=== PATIENT | male | born 1955 | race Caucasian/White ===

== ENCOUNTER 2020-03-09 20:38 | Inpatient (IN) | payer MEDICAID ==
[~2020-03-09] VITALS: Ht 175.3 cm; Wt 72.7 kg
[~2020-03-09 20:38] MED LIST: HYDR-4353 PO; HYDR-4383 PO
[2020-03-09 21:06] LABS: BASOPHILS # (AUTO) 0.2 X10'3 (0-0.2); BASOPHILS % (AUTO) 1.5 % (0-1); EOSINOPHILS # (AUTO) 0.2 X10'3 (0-0.9); EOSINOPHILS % (AUTO) 1.7 % (0-6); HEMOGLOBIN 14.9 g/dl (14.0-17.9); LYMPHOCYTES # (AUTO) 3.3 X10'3 (1.1-4.8); LYMPHOCYTES % (AUTO) 31.8 % (21-51); MEAN CORPUSCULAR HEMOGLOBIN 31.1 PG (27.0-31.0); MEAN CORPUSCULAR HGB CONC 33.1 g/dL (33.0-36.5); MEAN CORPUSCULAR VOLUME 93.8 FL (78-98); MEAN PLATELET VOLUME 8.1 FL (7.4-10.4); MONOCYTES # (AUTO) 0.9 X10'3 (0-0.9); NEUTROPHILS # (AUTO) 5.9 X10'3 (1.8-7.7); PLATELET COUNT 214 X10'3 (140-440); RED BLOOD COUNT 4.79 X10'6 (4.70-6.10); RED CELL DISTRIBUTION WIDTH 13.8 % (11.5-14.5); WHITE BLOOD COUNT 10.5 X10'3 (4.5-11.0)
[2020-03-09 21:25] LABS: ALANINE AMINOTRANSFERASE 34 U/L (12-78); ALBUMIN 3.2 G/DL (3.4-5.0); ALBUMIN/GLOBULIN RATIO 0.9 (1.1-1.5); ALKALINE PHOSPHATASE 121 IU/L (46-116); ANION GAP 8 (8-16); ASPARTATE AMINO TRANSFERASE 30 U/L (10-37); BILIRUBIN,TOTAL 0.9 MG/DL (0.1-1.0); BLOOD UREA NITROGEN 17 MG/DL (7-18); BUN/CREATININE RATIO 12.9 (5.4-32.0); CALCIUM 8.5 MG/DL (8.5-10.1); CHLORIDE 101 MMOL/L (99-107); CREATININE 1.32 MG/DL (0.60-1.10); GLUCOSE 102 MG/DL (70-104); POTASSIUM 4.5 MMOL/L (3.5-5.1); SODIUM 136 MMOL/L (135-145); TOTAL CARBON DIOXIDE 26.7 MMOL/L (24-32); TOTAL PROTEIN 6.9 G/DL (6.4-8.2); eGFR 55 ML/MIN
[2020-03-09] MEDS ORDERED: normal saline 1000ML IV soln IVB ONE (22:25)
[2020-03-09] MEDS ORDERED: nitroGLYCERIN 0.4mg/hour patch TD ONE (22:25)
[2020-03-09] MEDS ORDERED: aspirin 81mg tab.chew PO ONE (22:25)
[2020-03-09] MEDS ORDERED: NO HOME MEDS (22:37)
[2020-03-09] MEDS ORDERED: acetaminophen 325mg tablet PO PRN (22:40)
[2020-03-09] MEDS ORDERED: mag hydrox/Alum hydrox/simeth 30ml oral suspension PO PRN (22:40)
[2020-03-09] MEDS ORDERED: magnesium hydroxide 30ml (MOM) UD suspension PO PRN (22:40)
[2020-03-09] MEDS ORDERED: enoxaparin 40mg/0.4ml syringe SUBCUT ONE (22:40)
[2020-03-09] MEDS ORDERED: morphine 2 MG/ML inj. syringe IV PRN ×2 (22:40)
[2020-03-09] MEDS ORDERED: ondansetron/PF 4mg/2ml inj IV PRN (22:40)
[2020-03-09] MEDS ORDERED: enoxaparin 30mg/0.3ml syringe SUBCUT ONE (22:55)
[2020-03-10] VITALS (12 sets, daily range): BP systolic 113–143; BP diastolic 70–98
[2020-03-10 03:22] LABS: ALANINE AMINOTRANSFERASE 31 U/L (12-78); ALBUMIN 2.8 G/DL (3.4-5.0); ALBUMIN/GLOBULIN RATIO 0.9 (1.1-1.5); ALKALINE PHOSPHATASE 102 IU/L (46-116); ANION GAP 10 (8-16); ASPARTATE AMINO TRANSFERASE 28 U/L (10-37); BILIRUBIN,TOTAL 0.9 MG/DL (0.1-1.0); BLOOD UREA NITROGEN 16 MG/DL (7-18); BUN/CREATININE RATIO 14.5 (5.4-32.0); CALCIUM 8.3 MG/DL (8.5-10.1); CHLORIDE 103 MMOL/L (99-107); GLUCOSE 98 MG/DL (70-104); POTASSIUM 4.3 MMOL/L (3.5-5.1); SODIUM 137 MMOL/L (135-145); TOTAL CARBON DIOXIDE 24.5 MMOL/L (24-32); TOTAL PROTEIN 5.9 G/DL (6.4-8.2); eGFR 68 ML/MIN
[2020-03-10 07:40] LABS: BASOPHILS # (AUTO) 0.1 X10'3 (0-0.2); BASOPHILS % (AUTO) 1.1 % (0-1); EOSINOPHILS # (AUTO) 0.2 X10'3 (0-0.9); EOSINOPHILS % (AUTO) 2.1 % (0-6); HEMATOCRIT 41.4 % (42.0-52.0); HEMOGLOBIN 13.8 g/dl (14.0-17.9); LYMPHOCYTES % (AUTO) 35.8 % (21-51); MEAN CORPUSCULAR HEMOGLOBIN 30.7 PG (27.0-31.0); MEAN CORPUSCULAR HGB CONC 33.3 g/dL (33.0-36.5); MEAN CORPUSCULAR VOLUME 92.1 FL (78-98); MEAN PLATELET VOLUME 8.1 FL (7.4-10.4); MONOCYTES # (AUTO) 0.8 X10'3 (0-0.9); MONOCYTES % (AUTO) 9.5 % (2-12); NEUTROPHILS # (AUTO) 4.4 X10'3 (1.8-7.7); NEUTROPHILS % (AUTO) 51.5 % (42-75); PLATELET COUNT 203 X10'3 (140-440); RED CELL DISTRIBUTION WIDTH 13.4 % (11.5-14.5); WHITE BLOOD COUNT 8.5 X10'3 (4.5-11.0)
[2020-03-10] MEDS ORDERED: heparin, porcine 5000 units/ml vial SQ SCH (08:00)
--- NOTE | 2020-03-10 08:00 | NUR ---
Reported K+ level to Dr. Luz, received orders to give a one time dose of 20 meq PO. MD would also like the lasix to administered per MD order.
--- NOTE | 2020-03-10 08:36 | NUR ---
Assumed care of patient, placed on tele, V/S obtained. Pt. in stable condition.
--- NOTE | 2020-03-10 08:36 | NUR ---
Patient in room PCU 3013. I have received report from Jayla FUENTES and had the opportunity to ask questions and assume patient care.
[2020-03-10] MEDS: aspirin 81mg tablet.DR PO SCH (08:46)
[2020-03-10] MEDS: furosemide 10 MG/1 ML 10ml inj IV SCH (08:48)
[2020-03-10] MEDS ORDERED: regadenoson 0.4mg/5ml syringe IV PRN (10:05)
[2020-03-10] MEDS ORDERED: metoprolol tartrate 1mg/ml inj IV PRN (10:05)
[2020-03-10] MEDS ORDERED: aminophylline 250mg/10ml inj. IV PRN (10:05)
[2020-03-10] MEDS ORDERED: nitroGLYCERIN 0.4mg SUBLingual tab SL PRN (10:05)
[2020-03-10] MEDS ORDERED: heparin 10,000 units/1 ML INJ IV ONE (11:55)
[2020-03-10] MEDS ORDERED: heparin 10,000 units/1 ML INJ IV PRN (11:55)
[2020-03-10] MEDS: carvedilol 6.25mg tablet PO SCH ×2 (12:32→21:40)
[2020-03-10] MEDS: heparin 25,000 UNIT/250ml bag 250 ML IV SCH ×2 (12:40→21:50)
--- NOTE | 2020-03-10 15:27 | NUR ---
PAGER ID: [phone] MESSAGE: [id number] Belle Montero results are up. Can the patient eat now? Jackie FUENTES [phone]
--- NOTE | 2020-03-10 18:12 | NUR ---
Problems reprioritized. Patient report given, questions answered & plan of care reviewed with Flora FUENTES. Patient is eating, offers no complaints at this time.
--- NOTE | 2020-03-10 18:32 | NUR ---
Patient in room PCU 3013. I have received report from Jackie FUENTES and had the opportunity to ask questions and assume patient care.
--- NOTE | 2020-03-10 18:35 | NUR ---
Patient in room PCU 3013. I have received report from Jackie and had the opportunity to ask questions and assume patient care.
--- NOTE | 2020-03-10 19:40 | NUR ---
Stopped Heparin gtt at this time for PTT of 125. Will hold for two hours and then restart at the lower rate per the protocol.
--- NOTE | 2020-03-10 19:48 | NUR ---
promotional table spacer promotional table spacer Page Sent promotional table spacer PAGER ID: [phone] MESSAGE: Patient Manohar Grijalva RM [id number] Patient had critical PTT of 125. Will stop drip for 2 hours per protocol and then restart at the lower rate. Flora FUENTES ext. [phone]
[2020-03-10] MEDS: lisinopril 5mg tablet PO SCH (21:40)
[2020-03-11 03:19] VITALS: BP 116/75
--- NOTE | 2020-03-11 06:00 | NUR ---
Orientee documentation: I have reviewed and agree with all interventions, assessments performed and documented by Janey FUENTES. Orientee Medication Administration: For this medication-pass time frame, all medication were reviewed, dispensed, administered and documented per hospital policy by Janey FUENTES.
--- NOTE | 2020-03-11 06:12 | NUR ---
Problems reprioritized. Patient report given, questions answered & plan of care reviewed with Jackie FUENTES.
--- NOTE | 2020-03-11 06:15 | NUR ---
Problems reprioritized. Patient report given, questions answered & plan of care reviewed with Jackie.
[2020-03-11 06:23] LABS: BASOPHILS # (AUTO) 0.1 X10'3 (0-0.2); EOSINOPHILS # (AUTO) 0.2 X10'3 (0-0.9); HEMATOCRIT 43.9 % (42.0-52.0); HEMOGLOBIN 14.8 g/dl (14.0-17.9); LYMPHOCYTES % (AUTO) 36.1 % (21-51); MEAN CORPUSCULAR HEMOGLOBIN 31.3 PG (27.0-31.0); MEAN CORPUSCULAR HGB CONC 33.8 g/dL (33.0-36.5); MEAN CORPUSCULAR VOLUME 92.6 FL (78-98); MEAN PLATELET VOLUME 8.2 FL (7.4-10.4); MONOCYTES # (AUTO) 0.8 X10'3 (0-0.9); MONOCYTES % (AUTO) 9.5 % (2-12); NEUTROPHILS # (AUTO) 4.3 X10'3 (1.8-7.7); NEUTROPHILS % (AUTO) 51.4 % (42-75); PLATELET COUNT 200 X10'3 (140-440); RED BLOOD COUNT 4.74 X10'6 (4.70-6.10); RED CELL DISTRIBUTION WIDTH 13.1 % (11.5-14.5); WHITE BLOOD COUNT 8.3 X10'3 (4.5-11.0)
--- NOTE | 2020-03-11 06:23 | NUR ---
Patient in room PCU 3013. I have received report from Flora FUENTES and had the opportunity to ask questions and assume patient care.
[2020-03-11 06:31] LABS: ALBUMIN 2.8 G/DL (3.4-5.0); ANION GAP 7 (8-16); BILIRUBIN,TOTAL 1.1 MG/DL (0.1-1.0); BLOOD UREA NITROGEN 19 MG/DL (7-18); BUN/CREATININE RATIO 16.2 (5.4-32.0); CALCIUM 8.1 MG/DL (8.5-10.1); CHLORIDE 102 MMOL/L (99-107); CREATININE 1.17 MG/DL (0.60-1.10); GLUCOSE 93 MG/DL (70-104); POTASSIUM 3.8 MMOL/L (3.5-5.1); SODIUM 135 MMOL/L (135-145); TOTAL CARBON DIOXIDE 26.1 MMOL/L (24-32); TOTAL PROTEIN 5.9 G/DL (6.4-8.2); eGFR 63 ML/MIN
[2020-03-11 06:32] LABS: ALANINE AMINOTRANSFERASE 34 U/L (12-78); ALBUMIN/GLOBULIN RATIO 0.9 (1.1-1.5); ALKALINE PHOSPHATASE 107 IU/L (46-116); ASPARTATE AMINO TRANSFERASE 29 U/L (10-37)
[2020-03-11 06:49] VITALS: BP 124/74
[2020-03-11] MEDS: furosemide 10 MG/1 ML 10ml inj IV SCH (07:02)
[2020-03-11] MEDS: heparin 25,000 UNIT/250ml bag 250 ML IV SCH (07:02)
[2020-03-11] MEDS: carvedilol 6.25mg tablet PO SCH ×2 (07:02→19:58)
[2020-03-11] MEDS: aspirin 81mg tablet.DR PO SCH (07:03)
[2020-03-11] MEDS: spironolactone 25 MG tablet PO SCH (07:44)
[2020-03-11 11:00] VITALS: BP 103/67
[2020-03-11 15:00] VITALS: BP 106/67
[2020-03-11 18:00] VITALS: BP 128/85
--- NOTE | 2020-03-11 18:37 | NUR ---
Problems reprioritized. Patient report given, questions answered & plan of care reviewed with Miguel A FUENTES. Pt. is sleeping comfortably, offers no complaints.
[2020-03-11] MEDS: lisinopril 5mg tablet PO SCH (20:11)
[2020-03-11] MEDS ORDERED: warfarin 5mg tablet PO ONE (21:00)
--- NOTE | 2020-03-11 21:00 | NUR ---
Patient was fitted for lifevest and educated on the device by the rep and is now wearing it.
[2020-03-11 22:00] VITALS: BP 115/73
[2020-03-12 01:35] LABS: BASOPHILS # (AUTO) 0.1 X10'3 (0-0.2); BASOPHILS % (AUTO) 1.1 % (0-1); EOSINOPHILS # (AUTO) 0.2 X10'3 (0-0.9); EOSINOPHILS % (AUTO) 2.2 % (0-6); HEMATOCRIT 46.8 % (42.0-52.0); HEMOGLOBIN 15.7 g/dl (14.0-17.9); LYMPHOCYTES % (AUTO) 38.8 % (21-51); MEAN CORPUSCULAR HEMOGLOBIN 30.9 PG (27.0-31.0); MEAN CORPUSCULAR HGB CONC 33.5 g/dL (33.0-36.5); MEAN CORPUSCULAR VOLUME 92.3 FL (78-98); MONOCYTES # (AUTO) 0.7 X10'3 (0-0.9); MONOCYTES % (AUTO) 9.7 % (2-12); NEUTROPHILS # (AUTO) 3.7 X10'3 (1.8-7.7); NEUTROPHILS % (AUTO) 48.2 % (42-75); PLATELET COUNT 203 X10'3 (140-440); RED BLOOD COUNT 5.07 X10'6 (4.70-6.10); RED CELL DISTRIBUTION WIDTH 13.1 % (11.5-14.5); WHITE BLOOD COUNT 7.6 X10'3 (4.5-11.0)
[2020-03-12 01:48] LABS: ALANINE AMINOTRANSFERASE 34 U/L (12-78); ALBUMIN 2.9 G/DL (3.4-5.0); ALBUMIN/GLOBULIN RATIO 0.9 (1.1-1.5); ALKALINE PHOSPHATASE 108 IU/L (46-116); ANION GAP 7 (8-16); ASPARTATE AMINO TRANSFERASE 25 U/L (10-37); BILIRUBIN,TOTAL 0.6 MG/DL (0.1-1.0); BLOOD UREA NITROGEN 23 MG/DL (7-18); BUN/CREATININE RATIO 19.7 (5.4-32.0); CALCIUM 8.3 MG/DL (8.5-10.1); CHLORIDE 102 MMOL/L (99-107); CREATININE 1.17 MG/DL (0.60-1.10); GLUCOSE 104 MG/DL (70-104); POTASSIUM 3.6 MMOL/L (3.5-5.1); SODIUM 134 MMOL/L (135-145); TOTAL CARBON DIOXIDE 24.9 MMOL/L (24-32); TOTAL PROTEIN 6.2 G/DL (6.4-8.2); eGFR 63 ML/MIN
[2020-03-12 03:38] VITALS: BP 116/73
--- NOTE | 2020-03-12 06:26 | NUR ---
Problems reprioritized. Patient report given, questions answered & plan of care reviewed with Michel FUENTES.
--- NOTE | 2020-03-12 06:27 | NUR ---
Problems reprioritized. Patient report given, questions answered & plan of care reviewed with Michel.
--- NOTE | 2020-03-12 06:34 | NUR ---
Patient in room PCU 3013. I have received report from GINA Hines and had the opportunity to ask questions and assume patient care.
[2020-03-12 07:01] VITALS: BP 124/79
[2020-03-12] MEDS: spironolactone 25 MG tablet PO SCH (08:15)
[2020-03-12] MEDS: carvedilol 6.25mg tablet PO SCH ×2 (08:16→21:12)
[2020-03-12] MEDS: aspirin 81mg tablet.DR PO SCH (08:16)
[2020-03-12] MEDS: furosemide 10 MG/1 ML 10ml inj IV SCH (08:16)
[2020-03-12] MEDS: heparin 25,000 UNIT/250ml bag 250 ML IV SCH (08:36)
[2020-03-12 11:00] VITALS: BP 98/60
--- NOTE | 2020-03-12 14:02 | NUR ---
DVT PTT 58 which is within therapeutic range and requires no rate changes per protocol.
[2020-03-12 15:00] VITALS: BP 124/86
[2020-03-12 18:00] VITALS: BP 117/73
--- NOTE | 2020-03-12 18:46 | NUR ---
Problems reprioritized. Patient report given, questions answered & plan of care reviewed with GINA Camacho.
--- NOTE | 2020-03-12 19:01 | NUR ---
I have received report from GINA Pearson and had the opportunity to ask questions and assume patient care.
[2020-03-12] MEDS ORDERED: warfarin 5mg tablet PO ONE (21:00)
[2020-03-12] MEDS: lisinopril 5mg tablet PO SCH (21:12)
[2020-03-12 22:00] VITALS: BP 137/81
--- NOTE | 2020-03-12 23:00 | NUR ---
Patient in room PCU 3013. I have received report from Doug FUENTES and had the opportunity to ask questions and assume patient care.
--- NOTE | 2020-03-12 23:39 | NUR ---
Gave report to GINA Martínez
[2020-03-13 01:52] LABS: BASOPHILS # (AUTO) 0.1 X10'3 (0-0.2); BASOPHILS % (AUTO) 1.1 % (0-1); EOSINOPHILS # (AUTO) 0.2 X10'3 (0-0.9); EOSINOPHILS % (AUTO) 1.5 % (0-6); HEMATOCRIT 50.5 % (42.0-52.0); HEMOGLOBIN 17.4 g/dl (14.0-17.9); LYMPHOCYTES # (AUTO) 2.9 X10'3 (1.1-4.8); LYMPHOCYTES % (AUTO) 28.8 % (21-51); MEAN CORPUSCULAR HEMOGLOBIN 31.5 PG (27.0-31.0); MEAN CORPUSCULAR HGB CONC 34.4 g/dL (33.0-36.5); MEAN CORPUSCULAR VOLUME 91.4 FL (78-98); MEAN PLATELET VOLUME 8.2 FL (7.4-10.4); MONOCYTES # (AUTO) 0.8 X10'3 (0-0.9); MONOCYTES % (AUTO) 7.7 % (2-12); NEUTROPHILS # (AUTO) 6.2 X10'3 (1.8-7.7); NEUTROPHILS % (AUTO) 60.9 % (42-75); PLATELET COUNT 226 X10'3 (140-440); RED BLOOD COUNT 5.52 X10'6 (4.70-6.10); RED CELL DISTRIBUTION WIDTH 13.4 % (11.5-14.5); WHITE BLOOD COUNT 10.2 X10'3 (4.5-11.0)
[2020-03-13 02:00] VITALS: BP 127/88
[2020-03-13 02:10] LABS: ALANINE AMINOTRANSFERASE 38 U/L (12-78); ALBUMIN 3.1 G/DL (3.4-5.0); ALBUMIN/GLOBULIN RATIO 0.8 (1.1-1.5); ALKALINE PHOSPHATASE 106 IU/L (46-116); ANION GAP 7 (8-16); ASPARTATE AMINO TRANSFERASE 39 U/L (10-37); BILIRUBIN,TOTAL 0.6 MG/DL (0.1-1.0); BLOOD UREA NITROGEN 22 MG/DL (7-18); BUN/CREATININE RATIO 19.5 (5.4-32.0); CALCIUM 8.5 MG/DL (8.5-10.1); CHLORIDE 100 MMOL/L (99-107); CREATININE 1.13 MG/DL (0.60-1.10); GLUCOSE 108 MG/DL (70-104); POTASSIUM 3.8 MMOL/L (3.5-5.1); SODIUM 132 MMOL/L (135-145); TOTAL CARBON DIOXIDE 25.3 MMOL/L (24-32); TOTAL PROTEIN 6.9 G/DL (6.4-8.2); eGFR 66 ML/MIN
--- NOTE | 2020-03-13 02:30 | NUR ---
pt DVT PTT is 48, which is therapeutic, will continue to run Heparin GTT at 11 mls/ hr and continue to monitor pt closely
[2020-03-13 06:00] VITALS: BP 120/85
[2020-03-13] MEDS: heparin 25,000 UNIT/250ml bag 250 ML IV SCH (06:13)
--- NOTE | 2020-03-13 06:16 | NUR ---
Problems reprioritized. Patient report given, questions answered & plan of care reviewed with Trang FUENTES.
--- NOTE | 2020-03-13 08:40 | NUR ---
Per irrigation laborer request, Heparin drip paused for PTT draw.
[2020-03-13] MEDS: carvedilol 6.25mg tablet PO SCH ×2 (09:22→20:56)
[2020-03-13] MEDS: furosemide 10 MG/1 ML 10ml inj IV SCH (09:22)
[2020-03-13] MEDS: aspirin 81mg tablet.DR PO SCH (09:23)
[2020-03-13] MEDS: spironolactone 25 MG tablet PO SCH (09:23)
--- NOTE | 2020-03-13 10:13 | NUR ---
Spoke with Richelle MCDONALD, regarding coumadin clinic set up. Today's INR is 1.5 and patient has been receiving 5mg coumdin at night. Richelle is wondering if pharm can increase dose. Called pharm and pharmacist is doing rounds. Will discuss this with Dr. Swartz as well.
[2020-03-13 11:00] VITALS: BP 105/68
[2020-03-13 15:00] VITALS: BP 100/66
[2020-03-13 18:00] VITALS: BP 116/68
--- NOTE | 2020-03-13 18:08 | NUR ---
Patient in room PCU 3013. I have received report from Trang FUENTES and had the opportunity to ask questions and assume patient care.
[2020-03-13] MEDS: lisinopril 5mg tablet PO SCH (20:56)
[2020-03-13] MEDS ORDERED: warfarin 5mg tablet PO ONE (21:00)
[2020-03-13 22:00] VITALS: BP 149/96
[2020-03-14 04:01] LABS: ALANINE AMINOTRANSFERASE 50 U/L (12-78); ALBUMIN 3.3 G/DL (3.4-5.0); ALBUMIN/GLOBULIN RATIO 0.8 (1.1-1.5); ALKALINE PHOSPHATASE 109 IU/L (46-116); ANION GAP 6 (8-16); ASPARTATE AMINO TRANSFERASE 38 U/L (10-37); BILIRUBIN,TOTAL 0.7 MG/DL (0.1-1.0); BLOOD UREA NITROGEN 22 MG/DL (7-18); CALCIUM 9.2 MG/DL (8.5-10.1); CHLORIDE 100 MMOL/L (99-107); CREATININE 1.22 MG/DL (0.60-1.10); GLUCOSE 100 MG/DL (70-104); POTASSIUM 4.5 MMOL/L (3.5-5.1); SODIUM 134 MMOL/L (135-145); TOTAL PROTEIN 7.4 G/DL (6.4-8.2); eGFR 60 ML/MIN
[2020-03-14 04:03] LABS: BASOPHILS # (AUTO) 0.1 X10'3 (0-0.2); BASOPHILS % (AUTO) 0.7 % (0-1); EOSINOPHILS # (AUTO) 0.1 X10'3 (0-0.9); EOSINOPHILS % (AUTO) 1.1 % (0-6); HEMATOCRIT 55.2 % (42.0-52.0); LYMPHOCYTES # (AUTO) 2.9 X10'3 (1.1-4.8); LYMPHOCYTES % (AUTO) 26.2 % (21-51); MEAN CORPUSCULAR HEMOGLOBIN 30.6 PG (27.0-31.0); MEAN CORPUSCULAR HGB CONC 33.5 g/dL (33.0-36.5); MEAN CORPUSCULAR VOLUME 91.5 FL (78-98); MEAN PLATELET VOLUME 8.2 FL (7.4-10.4); MONOCYTES % (AUTO) 9.6 % (2-12); NEUTROPHILS # (AUTO) 6.8 X10'3 (1.8-7.7); NEUTROPHILS % (AUTO) 62.4 % (42-75); PLATELET COUNT 220 X10'3 (140-440); RED BLOOD COUNT 6.02 X10'6 (4.70-6.10); RED CELL DISTRIBUTION WIDTH 13.4 % (11.5-14.5); WHITE BLOOD COUNT 10.9 X10'3 (4.5-11.0)
[2020-03-14 04:09] LABS: HEMOGLOBIN 18.5 g/dl (14.0-17.9)
--- NOTE | 2020-03-14 04:12 | NUR ---
PAGER ID: [phone] MESSAGE: Manohar Jose [phone] [id number] here for new onset CHF critical Hgb of 18.5. -Eb [id number]
[2020-03-14 04:17] VITALS: BP 118/78
[2020-03-14 06:00] VITALS: BP 122/71
--- NOTE | 2020-03-14 06:14 | NUR ---
Problems reprioritized. Patient report given, questions answered & plan of care reviewed with Rahat FUENTES.
[2020-03-14] MEDS: furosemide 10 MG/1 ML 10ml inj IV SCH (08:34)
[2020-03-14] MEDS: aspirin 81mg tablet.DR PO SCH (08:35)
[2020-03-14] MEDS: spironolactone 25 MG tablet PO SCH (08:36)
[2020-03-14] MEDS: carvedilol 6.25mg tablet PO SCH (08:36)
[2020-03-14 11:00] VITALS: BP 98/66
[2020-03-14] MEDS ORDERED: FURO20TA4 PO (11:19)
[2020-03-14] MEDS ORDERED: WARF-55 PO (11:19)
[2020-03-14] MEDS ORDERED: LISI-642 PO (11:19)
[2020-03-14] MEDS ORDERED: CARV6.253 PO (11:19)
[2020-03-14] MEDS ORDERED: SPIR25TA PO (11:19)
[2020-03-14] MEDS ORDERED: ASPI-1071 PO (11:19)
[2020-03-14] MEDS: heparin 25,000 UNIT/250ml bag 250 ML IV SCH (12:03)
--- NOTE | 2020-03-14 16:50 | NUR ---
Patient safe for discharge per MD orders, discharge instructions reviewed with patient and questions answered, prescriptions called into patient pharmacy, PIV and tele DC, patient has zoll vest, patient belongings stayed on patient, wheeled to lobby and picked up by cab.
== END 2020-03-14 17:49 | disposition home or self-care (01) | DRG 194 ==
LOC: ER 20:38 → ED HOLD 22:38 → PCU 3S 03-10 08:05
PROVIDERS: ADMIT Family Medicine; ATTEND Family Medicine
PROC: 4A02XM4 Measurement of Cardiac Total Activity, External Approach (ICD-10-PCS; principal; 2020-03-10)
PROC: 3E033HZ Introduction of Radioactive Substance into Peripheral Vein, Percutaneous Approach (ICD-10-PCS; 2020-03-10)
DX: I50.21 Acute systolic (congestive) heart failure (principal); I21.4 Non-ST elevation (NSTEMI) myocardial infarction; I51.3 Intracardiac thrombosis, not elsewhere classified; F15.10 Other stimulant abuse, uncomplicated; E87.1 Hypo-osmolality and hyponatremia; F17.210 Nicotine dependence, cigarettes, uncomplicated; E11.9 Type 2 diabetes mellitus without complications; Z79.899 Other long term (current) drug therapy
CPT/HCPCS: 36415; 71045; 78452; 80053; 83880; 84484; 85025; 85610; 85730; 87081; 93005; 93017; 93306; 99285; A9500; G0378; J1644; J1650; J1940; J2270; J2785; J7030

== ENCOUNTER 2020-08-15 21:26 | Inpatient (IN) | payer MEDICAID ==
[~2020-08-15] VITALS: Ht 175.3 cm; Wt 72.7 kg
[~2020-08-15 21:26] MED LIST changes: +ASPI-1071 PO; +CARV6.253 PO; +FURO20TA4 PO; -HYDR-4353 PO; -HYDR-4383 PO; +LISI-642 PO; +SPIR25TA PO; +WARF-55 PO
[2020-08-15 21:58] LABS: MEAN CORPUSCULAR HEMOGLOBIN 30.6 PG (27.0-31.0)
[2020-08-15 22:01] LABS: BASOPHILS # (AUTO) 0.1 X10'3 (0-0.2); BASOPHILS % (AUTO) 0.8 % (0-1); EOSINOPHILS # (AUTO) 0.1 X10'3 (0-0.9); EOSINOPHILS % (AUTO) 0.7 % (0-6); HEMATOCRIT 44.4 % (42.0-52.0); HEMOGLOBIN 14.7 g/dl (14.0-17.9); LYMPHOCYTES # (AUTO) 3.6 X10'3 (1.1-4.8); MEAN CORPUSCULAR VOLUME 92.8 FL (78-98); MEAN PLATELET VOLUME 8.9 FL (7.4-10.4); MONOCYTES % (AUTO) 8.9 % (2-12); NEUTROPHILS # (AUTO) 6.8 X10'3 (1.8-7.7); NEUTROPHILS % (AUTO) 58.6 % (42-75); PLATELET COUNT 210 X10'3 (140-440); RED BLOOD COUNT 4.78 X10'6 (4.70-6.10); WHITE BLOOD COUNT 11.6 X10'3 (4.5-11.0)
[2020-08-15 22:24] LABS: ALANINE AMINOTRANSFERASE 89 U/L (12-78); ALBUMIN/GLOBULIN RATIO 0.9 (1.1-1.5); ALKALINE PHOSPHATASE 150 IU/L (46-116); ANION GAP 9 (8-16); ASPARTATE AMINO TRANSFERASE 105 U/L (10-37); BILIRUBIN,TOTAL 0.9 MG/DL (0.1-1.0); BLOOD UREA NITROGEN 31 MG/DL (7-18); BUN/CREATININE RATIO 21.2 (5.4-32.0); CALCIUM 9.2 MG/DL (8.5-10.1); CHLORIDE 102 MMOL/L (99-107); CREATININE 1.46 MG/DL (0.60-1.10); GLUCOSE 132 MG/DL (70-104); POTASSIUM 4.6 MMOL/L (3.5-5.1); SODIUM 136 MMOL/L (135-145); TOTAL CARBON DIOXIDE 24.8 MMOL/L (24-32); TOTAL PROTEIN 6.4 G/DL (6.4-8.2); eGFR 49 ML/MIN
[2020-08-15] MEDS ORDERED: carVEDilol 3.125mg tablet PO STA (23:02)
[2020-08-15] MEDS ORDERED: aspirin 81mg tab.chew PO ONE (23:05)
[2020-08-15] MEDS ORDERED: metoprolol tartrate 1mg/ml inj IV ONE (23:05)
[2020-08-15 23:19] LABS: MAGNESIUM 1.8 MG/DL (1.5-2.4)
[2020-08-15 23:25] LABS: D-DIMER 1.27 MG/L FEU (0-0.50); PARTIAL THROMBOPLASTIN TIME 26 SECONDS (22-32)
[2020-08-16] MEDS ORDERED: iohexol 350MG/ML 100ml bottle IV ONE (00:18)
--- NOTE | 2020-08-16 00:46 | NUR ---
returned from CT c/o SOB spo2 92% on room air placed on o2 per NC up 98-99%
[2020-08-16] MEDS ORDERED: NO HOME MEDS (00:54)
--- NOTE | 2020-08-16 01:33 | NUR ---
no home medications patient admits to being med noncompliant
[2020-08-16 02:01] LABS: CLARITY,URINE CLEAR (Clear); COLOR,URINE YELLOW (Yellow); GLUCOSE, URINE NEGATIVE (Neg); KETONES,URINE NEGATIVE (Neg); LEUKOCYTE ESTERASE ,URINE NEGATIVE (Neg); NITRITES, URINE NEGATIVE (Neg); OCCULT BLOOD,URINE TRACE-INTACT (Neg); PROTEIN,URINE 100 mg/dl (Neg)
[2020-08-16 02:07] LABS: UA COLLECTION TYPE CLN CATCH MIDSTREAM
[2020-08-16 02:10] LABS: BACTERIA,URINE NONE SEEN /HPF (Neg); RBC,URINE 0-2 /HPF (0-2); SQUAMOUS EPITHELIAL CELL,UR FEW /LPF (FEW); WBC,URINE NONE SEEN /HPF (0-4)
[2020-08-16] MEDS ORDERED: potassium Cl 40MEQ/1/2NS 520ml 520 ML IV PRN ×2 (02:20)
[2020-08-16] MEDS ORDERED: potassium Cl 20 mEq SR tablet PO PRN ×2 (02:20)
[2020-08-16] MEDS ORDERED: ondansetron/PF 4mg/2ml inj IV PRN (02:20)
[2020-08-16] MEDS ORDERED: mag hydrox/Alum hydrox/simeth 30ml oral suspension PO PRN (02:20)
[2020-08-16] MEDS ORDERED: magnesium hydroxide 30ml (MOM) UD suspension PO PRN (02:20)
[2020-08-16] MEDS ORDERED: acetaminophen 325mg tablet PO PRN (02:20)
[2020-08-16 03:46] LABS: URINE AMPHETAMINE SCREEN POSITIVE (Neg); URINE BARBITUATE SCREEN NEGATIVE (Neg); URINE BENZODIAZEPINES SCREEN NEGATIVE (Neg); URINE CANNABINOID SCREEN NEGATIVE (Neg); URINE COCAINE SCREEN NEGATIVE (Neg); URINE METHADONE SCREEN NEGATIVE (Neg); URINE OPIATE SCREEN NEGATIVE (Neg); URINE PHENCYCLIDINE SCREEN NEGATIVE (Neg)
--- NOTE | 2020-08-16 04:14 | NUR ---
c/o nightmares talking with eyes closed shake begins asking where are we going whats going on. reoriented to place and time easily
--- NOTE | 2020-08-16 07:18 | NUR ---
PT GIVEN OJ X2 PER REQUEST. LABS DRAWN FOR TROP. PT ASSISTED WITH HOB DOWN PILLOW PROVIDED PT NOW RESTING WITH EYES CLOSED VSS NO OTHER NEEDS AT THIS TIME
[2020-08-16] MEDS: K and/or MAG REPLACEMENT MC SCH ×2 (07:22→20:00)
[2020-08-16] MEDS ORDERED: enoxaparin 60mg/0.6ml syringe SUBCUT SCH (08:00)
[2020-08-16] MEDS: furosemide 20 MG/2 ML vial IV SCH ×2 (08:16→20:05)
[2020-08-16] MEDS: spironolactone 25 MG tablet PO SCH (08:17)
[2020-08-16] MEDS: carvedilol 6.25mg tablet PO SCH ×2 (08:17→20:05)
[2020-08-16] MEDS: lisinopril 2.5mg tablet PO SCH (08:17)
--- NOTE | 2020-08-16 08:42 | NUR ---
PT C/O OF BEING HOT. ASSISTED PT INTO GOWN AND OUT OF MULTIPLE LAYERS OF CLOTHES. PROVIDED ICE WATER. TURNED OFF LIGHTS. PT STATES RELIEF AND IS RESTING NOW NO NEED AT THIS TIME
--- NOTE | 2020-08-16 08:48 | NUR ---
PT C/O MILD ANXIETY. INCREASED HR AND BP. PAGE PLACED TO DR PÉREZ.
[2020-08-16] MEDS ORDERED: LORazepam 1 MG tablet PO ONE ×2 (09:15→09:25)
--- NOTE | 2020-08-16 09:24 | NUR ---
CALL FROM [facility] ORDER FOR PO ATIVAN GIVEN
--- NOTE | 2020-08-16 10:50 | NUR ---
PT PLACED ON HOSPITAL BED. PT RESTING WITH EYES CLOSED RR EQUAL AND UNLABORED. VSS. NO DISTRESS NOTED
--- NOTE | 2020-08-16 11:00 | NUR ---
pt up to bs voided in urinal 800 ml
[2020-08-16 13:30] VITALS: BP 110/78
--- NOTE | 2020-08-16 13:30 | NUR ---
Report recieved by emergency room nurse GINA Hinton. Patient brought up via wheelchair. Patient placed into hospital bed and oriented to unit. Telemonitor placed. patient saline locked. Patient belongings placed onto bedside table. Vital signs stable: 110/78, 96%, 97.8, 18 respirations, zero pain, 81 HR.
[2020-08-16 15:00] VITALS: BP 119/77
[2020-08-16 18:00] VITALS: BP 128/86
--- NOTE | 2020-08-16 18:00 | NUR ---
Patient in room PCU 3012. I have received report from Clau FUENTES and had the opportunity to ask questions and assume patient care. Pt lying in bed. NAD noted, RR even and unlabored. Safety precautions in place. will continue to monitor.
--- NOTE | 2020-08-16 18:15 | NUR ---
Discussed with Dr. Larson that patient has had periods of 20-30 seconds of apnea while sleeping. Dr. Larson would like to order continuous pulse oximetry throughout the night.
--- NOTE | 2020-08-16 18:21 | NUR ---
Problems reprioritized. Patient report given, questions answered & plan of care reviewed with GINA Quinn.
[2020-08-16] MEDS ORDERED: warfarin 5mg tablet PO ONE (21:00)
[2020-08-16 22:22] VITALS: BP 132/85
--- NOTE | 2020-08-17 | NUR ---
Pt continues to rest in bed. NAD noted, RR even and unlabored. Pt voiced no concerns. Will continue to monitor.
[2020-08-17 02:00] VITALS: BP 130/91
--- NOTE | 2020-08-17 06:26 | NUR ---
Problems reprioritized. Patient report given, questions answered & plan of care reviewed with Deepika RN.
--- NOTE | 2020-08-17 07:11 | NUR ---
received report from night nurse. pt in bed resting quietly easily aroused. he denies pain and no distress noted. introduced self and reviewed plan of care. call lorenz in reach will monitor
[2020-08-17 07:19] LABS: BASOPHILS % (AUTO) 0.4 % (0-1); EOSINOPHILS # (AUTO) 0.1 X10'3 (0-0.9); EOSINOPHILS % (AUTO) 1.1 % (0-6); HEMATOCRIT 44.4 % (42.0-52.0); HEMOGLOBIN 14.7 g/dl (14.0-17.9); LYMPHOCYTES # (AUTO) 2.5 X10'3 (1.1-4.8); MEAN CORPUSCULAR HEMOGLOBIN 30.4 PG (27.0-31.0); MEAN CORPUSCULAR VOLUME 92.1 FL (78-98); MEAN PLATELET VOLUME 9.3 FL (7.4-10.4); MONOCYTES # (AUTO) 0.9 X10'3 (0-0.9); MONOCYTES % (AUTO) 8.6 % (2-12); NEUTROPHILS # (AUTO) 7.4 X10'3 (1.8-7.7); NEUTROPHILS % (AUTO) 66.9 % (42-75); PLATELET COUNT 200 X10'3 (140-440); RED BLOOD COUNT 4.82 X10'6 (4.70-6.10); RED CELL DISTRIBUTION WIDTH 13.3 % (11.5-14.5)
[2020-08-17 07:24] VITALS: BP 136/85
[2020-08-17 07:24] LABS: ALANINE AMINOTRANSFERASE 89 U/L (12-78); ALBUMIN 2.5 G/DL (3.4-5.0); ALBUMIN/GLOBULIN RATIO 0.8 (1.1-1.5); ALKALINE PHOSPHATASE 115 IU/L (46-116); ANION GAP 8 (8-16); ASPARTATE AMINO TRANSFERASE 72 U/L (10-37); BILIRUBIN,TOTAL 0.8 MG/DL (0.1-1.0); BLOOD UREA NITROGEN 35 MG/DL (7-18); BUN/CREATININE RATIO 25.5 (5.4-32.0); CALCIUM 8.3 MG/DL (8.5-10.1); CHLORIDE 104 MMOL/L (99-107); CREATININE 1.37 MG/DL (0.60-1.10); GLUCOSE 106 MG/DL (70-104); POTASSIUM 4.2 MMOL/L (3.5-5.1); SODIUM 135 MMOL/L (135-145); TOTAL PROTEIN 5.7 G/DL (6.4-8.2); eGFR 53 ML/MIN
[2020-08-17] MEDS: lisinopril 2.5mg tablet PO SCH (07:50)
[2020-08-17] MEDS: spironolactone 25 MG tablet PO SCH (07:50)
[2020-08-17] MEDS: K and/or MAG REPLACEMENT MC SCH ×2 (07:51→20:00)
[2020-08-17] MEDS: furosemide 20 MG/2 ML vial IV SCH ×2 (07:51→20:05)
[2020-08-17] MEDS: carvedilol 6.25mg tablet PO SCH ×2 (07:51→20:04)
[2020-08-17 11:47] VITALS: BP 99/66
[2020-08-17 15:25] VITALS: BP 96/66
--- NOTE | 2020-08-17 17:55 | NUR ---
end of shift rounds completed. pt resting quietly in bed . good appetite for meals. denies pain no distress. pt able to ambulate to bathroom and shower. call lorenz in reach will monitor
[2020-08-17 18:00] VITALS: BP 128/88
--- NOTE | 2020-08-17 18:00 | NUR ---
Patient in room PCU 3012. I have received report from Deepika RN. and had the opportunity to ask questions and assume patient care. Pt resting in bed. NAD noted, RR even and unlabored. pt voiced no concerns. Safety precautions in place. Will continue to monitor.
[2020-08-17] MEDS ORDERED: warfarin 3mg tablet PO ONE (21:00)
--- NOTE | 2020-08-17 21:36 | NUR ---
Pt is resting in bed. Medications given, tolerated meds well. Safety precautions remain in place. Will continue to monitor
[2020-08-17 21:48] VITALS: BP 109/68
--- NOTE | 2020-08-18 | NUR ---
Problems reprioritized. Patient report given, questions answered & plan of care reviewed with Nadya FUENTES.
--- NOTE | 2020-08-18 | NUR ---
I took over care of patient at 2350, from Cheyenne FUENTES. Patient was in stable condition and resting comfortably. Will continue to monitor.
[2020-08-18 02:00] VITALS: BP 120/80
--- NOTE | 2020-08-18 06:24 | NUR ---
Patient in room PCU 3012. I have received report from Irma and had the opportunity to ask questions and assume patient care.
--- NOTE | 2020-08-18 06:24 | NUR ---
Problems reprioritized. Patient report given, questions answered & plan of care reviewed with Deepika RN.
[2020-08-18 07:03] LABS: BASOPHILS # (AUTO) 0.1 X10'3 (0-0.2); BASOPHILS % (AUTO) 0.7 % (0-1); EOSINOPHILS # (AUTO) 0.2 X10'3 (0-0.9); EOSINOPHILS % (AUTO) 1.6 % (0-6); HEMATOCRIT 44.8 % (42.0-52.0); HEMOGLOBIN 14.9 g/dl (14.0-17.9); LYMPHOCYTES # (AUTO) 3.1 X10'3 (1.1-4.8); LYMPHOCYTES % (AUTO) 31.2 % (21-51); MEAN CORPUSCULAR HEMOGLOBIN 30.6 PG (27.0-31.0); MEAN CORPUSCULAR HGB CONC 33.2 g/dL (33.0-36.5); MEAN CORPUSCULAR VOLUME 92.2 FL (78-98); MONOCYTES % (AUTO) 10.4 % (2-12); NEUTROPHILS # (AUTO) 5.5 X10'3 (1.8-7.7); NEUTROPHILS % (AUTO) 56.1 % (42-75); PLATELET COUNT 196 X10'3 (140-440); RED BLOOD COUNT 4.86 X10'6 (4.70-6.10); RED CELL DISTRIBUTION WIDTH 13.1 % (11.5-14.5); WHITE BLOOD COUNT 9.8 X10'3 (4.5-11.0)
[2020-08-18 07:08] VITALS: BP 117/76
[2020-08-18 07:16] LABS: ALANINE AMINOTRANSFERASE 81 U/L (12-78); ALBUMIN 2.6 G/DL (3.4-5.0); ALBUMIN/GLOBULIN RATIO 0.8 (1.1-1.5); ALKALINE PHOSPHATASE 112 IU/L (46-116); ANION GAP 10 (8-16); ASPARTATE AMINO TRANSFERASE 52 U/L (10-37); BILIRUBIN,TOTAL 0.6 MG/DL (0.1-1.0); BLOOD UREA NITROGEN 35 MG/DL (7-18); BUN/CREATININE RATIO 23.8 (5.4-32.0); CALCIUM 8.5 MG/DL (8.5-10.1); CHLORIDE 104 MMOL/L (99-107); CREATININE 1.47 MG/DL (0.60-1.10); GLUCOSE 106 MG/DL (70-104); POTASSIUM 4.2 MMOL/L (3.5-5.1); SODIUM 137 MMOL/L (135-145); TOTAL CARBON DIOXIDE 23.2 MMOL/L (24-32); TOTAL PROTEIN 5.8 G/DL (6.4-8.2); eGFR 49 ML/MIN
[2020-08-18] MEDS: K and/or MAG REPLACEMENT MC SCH (08:00)
[2020-08-18] MEDS: spironolactone 25 MG tablet PO SCH (08:01)
[2020-08-18] MEDS: furosemide 20 MG/2 ML vial IV SCH (08:01)
[2020-08-18] MEDS: carvedilol 6.25mg tablet PO SCH (08:02)
[2020-08-18] MEDS: lisinopril 2.5mg tablet PO SCH (08:02)
[2020-08-18] MEDS ORDERED: LISI2.5T2 PO (09:56)
[2020-08-18] MEDS ORDERED: SPIR25TA PO (09:56)
[2020-08-18] MEDS ORDERED: CARV6.253 PO (09:56)
[2020-08-18] MEDS ORDERED: FURO-150 PO (09:56)
[2020-08-18 11:09] VITALS: BP 95/67
--- NOTE | 2020-08-18 15:33 | NUR ---
pt discharged to home. int removed . pt voiced understanding of discharge instructions and the need to get his meds picked up. pt ambulated to lobby with staff for d/c
[2020-08-18] MEDS ORDERED: VANCOMYCIN LEVEL PO ONE (21:00)
--- NOTE | 2020-08-19 16:18 | NUR ---
CASE MANAGEMENT DISCHARGE FOLLOW UP: T/c to pt's listed contact, Sun, spoke to Sun's son, stated that this nurse is calling for Sun as he is listed as a contact for Manohar, after pause this nurse was hung up on.
== END 2020-08-18 14:50 | disposition home or self-care (01) | DRG 194 ==
LOC: ER 21:27 → ED HOLD 08-16 02:20 → PCU 3S 08-16 13:41
PROVIDERS: ADMIT Internal Medicine; ATTEND Internal Medicine
PROC: B32T1ZZ Computerized Tomography (CT Scan) of Left Pulmonary Artery using Low Osmolar Contrast (ICD-10-PCS; principal; 2020-08-16)
PROC: B3201ZZ Computerized Tomography (CT Scan) of Thoracic Aorta using Low Osmolar Contrast (ICD-10-PCS; 2020-08-16)
PROC: B32S1ZZ Computerized Tomography (CT Scan) of Right Pulmonary Artery using Low Osmolar Contrast (ICD-10-PCS; 2020-08-16)
DX: I50.23 Acute on chronic systolic (congestive) heart failure (principal); F15.10 Other stimulant abuse, uncomplicated; F17.200 Nicotine dependence, unspecified, uncomplicated; R74.01 Elevation of levels of liver transaminase levels; I42.0 Dilated cardiomyopathy; I42.7 Cardiomyopathy due to drug and external agent; R59.0 Localized enlarged lymph nodes; N17.9 Acute kidney failure, unspecified; Z79.899 Other long term (current) drug therapy; Z59.0 Homelessness; Z71.51 Drug abuse counseling and surveillance of drug abuser; Z71.6 Tobacco abuse counseling
CPT/HCPCS: 36415; 71045; 71275; 80053; 80305; 81001; 83735; 83880; 84484; 85025; 85379; 85610; 85730; 87081; 93005; 93306; 93308; 99285; G0378; J1940; J3490; Q9967

== ENCOUNTER 2021-06-06 12:43 | Emergency (ER) | payer MEDICAID ==
[~2021-06-06] VITALS: Ht 172.7 cm; Wt 70.0 kg
[~2021-06-06 12:43] MED LIST changes: -ASPI-1071 PO; +FURO-150 PO; -FURO20TA4 PO; -LISI-642 PO; +LISI2.5T14 PO; -WARF-55 PO
[2021-06-06 12:58] VITALS: BP 149/86
== END 2021-06-06 13:37 | disposition home or self-care (01) ==
LOC: ER 12:44
DX: K42.9 Umbilical hernia without obstruction or gangrene (principal); I50.9 Heart failure, unspecified; F12.10 Cannabis abuse, uncomplicated; Z59.00 Homelessness unspecified
CPT/HCPCS: 99282

== ENCOUNTER 2021-06-11 15:09 | Inpatient (IN) | payer MEDICAID ==
[~2021-06-11] VITALS: Ht 172.7 cm; Wt 70.0 kg
--- NOTE | 2021-06-11 15:28 | NUR ---
"Pt can stay in the lobby" per Viraj VALVERDE when RN asked him if he needs to be in [facility] due to potential covid.
[2021-06-11 15:57] LABS: BASOPHILS % (AUTO) 0.3 % (0-1); EOSINOPHILS % (AUTO) 0 % (0-6); HEMATOCRIT 52.1 % (42.0-52.0); HEMOGLOBIN 17.3 g/dl (14.0-17.9); LYMPHOCYTES # (AUTO) 1.3 X10'3 (1.1-4.8); LYMPHOCYTES % (AUTO) 24.5 % (21-51); MEAN CORPUSCULAR HEMOGLOBIN 30.1 PG (27.0-31.0); MEAN CORPUSCULAR HGB CONC 33.2 g/dL (33.0-36.5); MEAN CORPUSCULAR VOLUME 90.8 FL (78-98); MEAN PLATELET VOLUME 8.4 FL (7.4-10.4); MONOCYTES # (AUTO) 0.3 X10'3 (0-0.9); MONOCYTES % (AUTO) 4.7 % (2-12); NEUTROPHILS # (AUTO) 3.9 X10'3 (1.8-7.7); NEUTROPHILS % (AUTO) 70.5 % (42-75); PLATELET COUNT 193 X10'3 (140-440); RED BLOOD COUNT 5.74 X10'6 (4.70-6.10); RED CELL DISTRIBUTION WIDTH 14.8 % (11.5-14.5); WHITE BLOOD COUNT 5.5 X10'3 (4.5-11.0)
[2021-06-11 16:17] LABS: ALANINE AMINOTRANSFERASE 172 U/L (12-78); ALBUMIN 2.9 G/DL (3.4-5.0); ALBUMIN/GLOBULIN RATIO 0.6 (1.1-1.5); ALKALINE PHOSPHATASE 101 IU/L (46-116); ANION GAP 13 (8-16); ASPARTATE AMINO TRANSFERASE 151 U/L (10-37); BLOOD UREA NITROGEN 20 MG/DL (7-18); BUN/CREATININE RATIO 15.6 (5.4-32.0); CALCIUM 8.2 MG/DL (8.5-10.1); CHLORIDE 94 MMOL/L (99-107); CREATININE 1.28 MG/DL (0.60-1.10); GLUCOSE 111 MG/DL (70-104); POTASSIUM 3.9 MMOL/L (3.5-5.1); SODIUM 130 MMOL/L (135-145); TOTAL CARBON DIOXIDE 23.5 MMOL/L (24-32); TOTAL PROTEIN 7.7 G/DL (6.4-8.2); eGFR 57 ML/MIN
[2021-06-11] MEDS ORDERED: normal saline 1000ML IV soln IV ONE (16:35)
[2021-06-11] MEDS ORDERED: furosemide 10 MG/1 ML 10ml inj IV ONE (17:00)
[2021-06-11] MEDS ORDERED: dexamethasone sod phosphate 10mg/ml inj IV STA (17:37)
[2021-06-11] MEDS ORDERED: REMDESIVIR INJ 200 MG in normal saline 100ml IV soln 100 ML IV ONE (17:40)
[2021-06-11] MEDS ORDERED: mag hydrox/Alum hydrox/simeth 30ml oral suspension PO PRN (19:00)
[2021-06-11] MEDS ORDERED: potassium CL 10mEq/100ml bag 100 ML IV PRN (19:00)
[2021-06-11] MEDS ORDERED: potassium Cl 20 mEq SR tablet PO PRN (19:00)
[2021-06-11] MEDS ORDERED: magnesium 2GM in 50ml NS 50 ML IV PRN (19:00)
[2021-06-11] MEDS ORDERED: magnesium 4gm in 100ml NS 100 ML IV PRN (19:00)
[2021-06-11] MEDS ORDERED: magnesium Cl slow-release 64mg tablet PO PRN (19:00)
[2021-06-11] MEDS ORDERED: ondansetron/PF 4mg/2ml inj IV PRN (19:00)
[2021-06-11] MEDS ORDERED: morphine 2 MG/ML inj. syringe IV PRN ×2 (19:00)
[2021-06-11] MEDS ORDERED: magnesium hydroxide 30ml (MOM) UD suspension PO PRN (19:00)
[2021-06-11] MEDS ORDERED: acetaminophen 325mg tablet PO PRN (19:00)
[2021-06-11] MEDS ORDERED: HYDROcodone/acetaminophen 10/325mg tab PO PRN (19:00)
[2021-06-11 19:24] LABS: D-DIMER 1.56 MG/L FEU (0-0.50)
[2021-06-11] MEDS ORDERED: CARV6.253 PO (19:38)
[2021-06-11] MEDS ORDERED: LISI2.5T89 PO (19:38)
[2021-06-11] MEDS ORDERED: ASPI-1397 PO (19:38)
[2021-06-11] MEDS ORDERED: FURO20TA4 PO (19:38)
[2021-06-11] MEDS ORDERED: SPIR25TA5 PO (19:38)
[2021-06-11 19:53] LABS: MAGNESIUM 1.4 MG/DL (1.5-2.4)
[2021-06-11 19:59] LABS: POTASSIUM 2.8 MMOL/L (3.5-5.1)
[2021-06-11 20:17] LABS: C-REACTIVE PROTEIN 75.07 MG/DL (0.0-0.5)
--- NOTE | 2021-06-11 20:40 | NUR ---
ATTEMPTED TO CALL REPORT TO FLOOR RN, RN UNAVAILABLE AND WILL RETURN CALL.
[2021-06-11] MEDS: dexamethasone inj 6 MG in normal saline 50ml IV soln 50 ML IV SCH (20:55)
[2021-06-11] MEDS: furosemide 20 MG/2 ML vial IV SCH (20:55)
[2021-06-11] MEDS: docusate sod 100mg capsule PO SCH (20:56)
[2021-06-11] MEDS: K and/or MAG REPLACEMENT MC SCH (20:56)
[2021-06-11] MEDS: potassium Cl 20 mEq SR tablet PO PRN (20:56)
--- NOTE | 2021-06-11 21:16 | NUR ---
Patient in room ED 5. I have received report from GINA Vines and had the opportunity to ask questions and assume patient care.
[2021-06-11 22:00] VITALS: BP 105/72
--- NOTE | 2021-06-11 23:00 | NUR ---
Dr. Montoya was notified regarding pt. Troponin of 349 .He told me to monitor the pt. We will continue wit pt. care
[2021-06-12] VITALS (8 sets, daily range): BP systolic 88–110; BP diastolic 56–70
[2021-06-12] MEDS: potassium Cl 20 mEq SR tablet PO PRN ×2 (00:51→05:02)
[2021-06-12 03:22] LABS: BASOPHILS % (AUTO) 0.4 % (0-1); EOSINOPHILS % (AUTO) 0 % (0-6); HEMATOCRIT 46.7 % (42.0-52.0); HEMOGLOBIN 15.6 g/dl (14.0-17.9); LYMPHOCYTES # (AUTO) 0.6 X10'3 (1.1-4.8); LYMPHOCYTES % (AUTO) 19.8 % (21-51); MEAN CORPUSCULAR HGB CONC 33.4 g/dL (33.0-36.5); MEAN CORPUSCULAR VOLUME 89.6 FL (78-98); MEAN PLATELET VOLUME 8.6 FL (7.4-10.4); MONOCYTES # (AUTO) 0.1 X10'3 (0-0.9); MONOCYTES % (AUTO) 5.1 % (2-12); NEUTROPHILS # (AUTO) 2.1 X10'3 (1.8-7.7); NEUTROPHILS % (AUTO) 74.7 % (42-75); PLATELET COUNT 148 X10'3 (140-440); RED CELL DISTRIBUTION WIDTH 14.5 % (11.5-14.5); WHITE BLOOD COUNT 2.9 X10'3 (4.5-11.0)
[2021-06-12 03:33] LABS: D-DIMER 1.12 MG/L FEU (0-0.50)
[2021-06-12 03:42] LABS: C-REACTIVE PROTEIN 10.18 MG/DL (0.0-0.5); MAGNESIUM 1.8 MG/DL (1.5-2.4)
[2021-06-12 05:11] LABS: TOTAL CELLS COUNTED 100
[2021-06-12 05:12] LABS: PLATELET ESTIMATE NORMAL
--- NOTE | 2021-06-12 06:30 | NUR ---
Problems reprioritized. Patient report given, questions answered & plan of care reviewed with GINA Coy.
[2021-06-12] MEDS: enoxaparin 40mg/0.4ml syringe SUBCUT SCH (07:48)
[2021-06-12] MEDS: docusate sod 100mg capsule PO SCH ×2 (07:49→20:41)
[2021-06-12] MEDS: dexamethasone inj 6 MG in normal saline 50ml IV soln 50 ML IV SCH ×2 (07:50→20:41)
[2021-06-12] MEDS: REMDESIVIR 100 MG in NS 100ml IVPB IV SCH (07:50)
[2021-06-12] MEDS: furosemide 20 MG/2 ML vial IV SCH ×3 (08:00→20:41)
[2021-06-12] MEDS: K and/or MAG REPLACEMENT MC SCH ×2 (08:00→19:20)
[2021-06-12 08:24] LABS: ALBUMIN 1.8 G/DL (3.4-5.0); ANION GAP 9 (8-16); BLOOD UREA NITROGEN 23 MG/DL (7-18); BUN/CREATININE RATIO 18.5 (5.4-32.0); CALCIUM 7.6 MG/DL (8.5-10.1); CHLORIDE 102 MMOL/L (99-107); CREATININE 1.24 MG/DL (0.60-1.10); GLUCOSE 176 MG/DL (70-104); SODIUM 134 MMOL/L (135-145); TOTAL CARBON DIOXIDE 22.7 MMOL/L (24-32); eGFR 59 ML/MIN
[2021-06-12] MEDS: amox tr/potassium clavulanate 875/125mg TAB PO SCH (16:53)
--- NOTE | 2021-06-12 17:17 | NUR ---
Patient is asking for home medications. Pharmacy was called to see if they received meds, they said patient did not arrive with meds and family is supposed to be bringing them in.
[2021-06-12] MEDS ORDERED: amox tr/potassium clavulanate 875/125mg TAB PO SCH (17:30)
--- NOTE | 2021-06-12 17:39 | NUR ---
Home medications found in patients belongings. Medications taken down to pharmacy.
--- NOTE | 2021-06-12 18:04 | NUR ---
Problems reprioritized. Patient report given, questions answered & plan of care reviewed with Hyun FUENTES.
--- NOTE | 2021-06-12 18:30 | NUR ---
Patient in room ORTHO 4024. I have received report from GINA Coy and had the opportunity to ask questions and assume patient care.
[2021-06-13 02:00] VITALS: BP 112/66
[2021-06-13 06:00] VITALS: BP 105/70
--- NOTE | 2021-06-13 06:01 | NUR ---
Problems reprioritized. Patient report given, questions answered & plan of care reviewed with GINA Coy.
[2021-06-13] MEDS: aspirin 81mg, enteric-coated 1 TAB TABLET.DR PO SCH (07:23)
[2021-06-13] MEDS: docusate sod 100mg capsule PO SCH ×2 (07:23→20:39)
[2021-06-13 07:24] LABS: BASOPHILS % (AUTO) 0.1 % (0-1); EOSINOPHILS % (AUTO) 0 % (0-6); HEMATOCRIT 42.4 % (42.0-52.0); HEMOGLOBIN 14.1 g/dl (14.0-17.9); LYMPHOCYTES # (AUTO) 0.6 X10'3 (1.1-4.8); MEAN CORPUSCULAR HEMOGLOBIN 29.9 PG (27.0-31.0); MEAN CORPUSCULAR HGB CONC 33.2 g/dL (33.0-36.5); MEAN PLATELET VOLUME 8.6 FL (7.4-10.4); MONOCYTES # (AUTO) 0.3 X10'3 (0-0.9); MONOCYTES % (AUTO) 2.6 % (2-12); NEUTROPHILS # (AUTO) 9.9 X10'3 (1.8-7.7); NEUTROPHILS % (AUTO) 91.3 % (42-75); PLATELET COUNT 170 X10'3 (140-440); RED BLOOD COUNT 4.72 X10'6 (4.70-6.10); RED CELL DISTRIBUTION WIDTH 14.3 % (11.5-14.5); WHITE BLOOD COUNT 10.8 X10'3 (4.5-11.0)
[2021-06-13] MEDS: spironolactone 25 MG tablet PO SCH (07:27)
[2021-06-13] MEDS: lisinopril 2.5mg tablet PO SCH (07:27)
[2021-06-13] MEDS: furosemide 20 MG/2 ML vial IV SCH ×2 (07:27→20:39)
[2021-06-13] MEDS: dexamethasone inj 6 MG in normal saline 50ml IV soln 50 ML IV SCH ×2 (07:28→20:39)
[2021-06-13] MEDS: enoxaparin 40mg/0.4ml syringe SUBCUT SCH (07:28)
[2021-06-13] MEDS: REMDESIVIR 100 MG in NS 100ml IVPB IV SCH (07:28)
[2021-06-13] MEDS: amox tr/potassium clavulanate 875/125mg TAB PO SCH ×2 (07:44→17:13)
[2021-06-13 07:56] LABS: ALANINE AMINOTRANSFERASE 96 U/L (12-78); ALBUMIN/GLOBULIN RATIO 0.5 (1.1-1.5); ALKALINE PHOSPHATASE 75 IU/L (46-116); ANION GAP 11 (8-16); ASPARTATE AMINO TRANSFERASE 85 U/L (10-37); BILIRUBIN,TOTAL 0.5 MG/DL (0.1-1.0); BLOOD UREA NITROGEN 28 MG/DL (7-18); CALCIUM 7.9 MG/DL (8.5-10.1); CHLORIDE 100 MMOL/L (99-107); GLUCOSE 128 MG/DL (70-104); MAGNESIUM 1.8 MG/DL (1.5-2.4); POTASSIUM 4.4 MMOL/L (3.5-5.1); SODIUM 135 MMOL/L (135-145); TOTAL CARBON DIOXIDE 23.8 MMOL/L (24-32); TOTAL PROTEIN 6.1 G/DL (6.4-8.2); eGFR 75 ML/MIN
[2021-06-13] MEDS: K and/or MAG REPLACEMENT MC SCH ×2 (08:00→19:23)
[2021-06-13 10:00] VITALS: BP 107/68
[2021-06-13 14:00] VITALS: BP 101/69
[2021-06-13 18:00] VITALS: BP 91/57
--- NOTE | 2021-06-13 18:19 | NUR ---
Problems reprioritized. Patient report given, questions answered & plan of care reviewed with Hyun FUENTES.
--- NOTE | 2021-06-13 18:49 | NUR ---
Patient in room ORTHO 4024. I have received report from GINA Coy and had the opportunity to ask questions and assume patient care.
[2021-06-13 21:28] LABS: D-DIMER 0.84 MG/L FEU (0-0.50)
[2021-06-13 22:00] VITALS: BP 105/80
[2021-06-14 02:00] VITALS: BP 107/73
[2021-06-14 06:00] VITALS: BP 108/73
--- NOTE | 2021-06-14 06:21 | NUR ---
Problems reprioritized. Patient report given, questions answered & plan of care reviewed with GINA Toro.
--- NOTE | 2021-06-14 06:42 | NUR ---
Patient in room ORTHO 4024A. I have received report from GINA Purvis and had the opportunity to ask questions and assume patient care.
[2021-06-14 07:07] LABS: ALBUMIN 2.1 G/DL (3.4-5.0); ANION GAP 9 (8-16); BLOOD UREA NITROGEN 27 MG/DL (7-18); BUN/CREATININE RATIO 30.3 (5.4-32.0); CALCIUM 8.3 MG/DL (8.5-10.1); CHLORIDE 101 MMOL/L (99-107); CREATININE 0.89 MG/DL (0.60-1.10); GLUCOSE 132 MG/DL (70-104); MAGNESIUM 1.9 MG/DL (1.5-2.4); POTASSIUM 4.5 MMOL/L (3.5-5.1); SODIUM 136 MMOL/L (135-145); TOTAL CARBON DIOXIDE 25.8 MMOL/L (24-32); eGFR 86 ML/MIN
[2021-06-14 07:13] LABS: BASOPHILS % (AUTO) 0.1 % (0-1); EOSINOPHILS % (AUTO) 0 % (0-6); HEMATOCRIT 41.3 % (42.0-52.0); HEMOGLOBIN 13.7 g/dl (14.0-17.9); LYMPHOCYTES # (AUTO) 0.7 X10'3 (1.1-4.8); MEAN CORPUSCULAR HEMOGLOBIN 29.7 PG (27.0-31.0); MEAN CORPUSCULAR HGB CONC 33.2 g/dL (33.0-36.5); MEAN CORPUSCULAR VOLUME 89.6 FL (78-98); MEAN PLATELET VOLUME 8.7 FL (7.4-10.4); MONOCYTES # (AUTO) 0.4 X10'3 (0-0.9); MONOCYTES % (AUTO) 3.1 % (2-12); NEUTROPHILS % (AUTO) 90.8 % (42-75); PLATELET COUNT 176 X10'3 (140-440); RED BLOOD COUNT 4.61 X10'6 (4.70-6.10); RED CELL DISTRIBUTION WIDTH 14.5 % (11.5-14.5); WHITE BLOOD COUNT 12.1 X10'3 (4.5-11.0)
[2021-06-14] MEDS: dexamethasone inj 6 MG in normal saline 50ml IV soln 50 ML IV SCH ×2 (07:43→20:06)
[2021-06-14] MEDS: aspirin 81mg, enteric-coated 1 TAB TABLET.DR PO SCH (07:43)
[2021-06-14] MEDS: amox tr/potassium clavulanate 875/125mg TAB PO SCH ×2 (07:43→17:39)
[2021-06-14] MEDS: lisinopril 2.5mg tablet PO SCH (07:44)
[2021-06-14] MEDS: spironolactone 25 MG tablet PO SCH (07:44)
[2021-06-14] MEDS: furosemide 20 MG/2 ML vial IV SCH ×2 (07:44→20:06)
[2021-06-14] MEDS: docusate sod 100mg capsule PO SCH ×2 (07:44→20:06)
[2021-06-14] MEDS: enoxaparin 40mg/0.4ml syringe SUBCUT SCH (07:45)
[2021-06-14] MEDS: K and/or MAG REPLACEMENT MC SCH ×2 (08:00→20:00)
[2021-06-14] MEDS: REMDESIVIR 100 MG in NS 100ml IVPB IV SCH (09:56)
[2021-06-14 10:00] VITALS: BP 98/66
[2021-06-14 14:00] VITALS: BP 104/74
--- NOTE | 2021-06-14 18:25 | NUR ---
Problems reprioritized. Patient report given, questions answered & plan of care reviewed with GINA Juarez.
[2021-06-14 18:30] VITALS: BP 119/81
[2021-06-14 18:42] LABS: D-DIMER 0.91 MG/L FEU (0-0.50)
[2021-06-14] MEDS: lactobacillus rhamnosus 10,000 MMU CELLS/CAPSULE PO SCH (20:09)
[2021-06-14 22:00] VITALS: BP 114/72
[2021-06-15 02:03] VITALS: BP 95/72
[2021-06-15 06:00] VITALS: BP 99/76
--- NOTE | 2021-06-15 06:28 | NUR ---
Problems reprioritized. Patient report given, questions answered & plan of care reviewed with sravanthi Toro.
--- NOTE | 2021-06-15 06:30 | NUR ---
Patient in room ORTHO 4024A. I have received report from GINA Juarez and had the opportunity to ask questions and assume patient care.
[2021-06-15] MEDS: amox tr/potassium clavulanate 875/125mg TAB PO SCH ×2 (07:40→16:52)
[2021-06-15] MEDS: furosemide 20 MG/2 ML vial IV SCH ×2 (07:41→20:15)
[2021-06-15] MEDS: aspirin 81mg, enteric-coated 1 TAB TABLET.DR PO SCH (07:41)
[2021-06-15] MEDS: enoxaparin 40mg/0.4ml syringe SUBCUT SCH (07:41)
[2021-06-15] MEDS: dexamethasone inj 6 MG in normal saline 50ml IV soln 50 ML IV SCH ×2 (07:41→20:15)
[2021-06-15] MEDS: lactobacillus rhamnosus 10,000 MMU CELLS/CAPSULE PO SCH ×2 (07:41→20:14)
[2021-06-15] MEDS: docusate sod 100mg capsule PO SCH ×2 (07:41→20:00)
[2021-06-15] MEDS: lisinopril 2.5mg tablet PO SCH (07:42)
[2021-06-15] MEDS: spironolactone 25 MG tablet PO SCH (07:43)
[2021-06-15 07:57] LABS: BASOPHILS % (AUTO) 0 % (0-1); EOSINOPHILS % (AUTO) 0.1 % (0-6); HEMATOCRIT 42.3 % (42.0-52.0); LYMPHOCYTES # (AUTO) 0.9 X10'3 (1.1-4.8); LYMPHOCYTES % (AUTO) 7.9 % (21-51); MEAN CORPUSCULAR HEMOGLOBIN 29.9 PG (27.0-31.0); MEAN CORPUSCULAR HGB CONC 33.2 g/dL (33.0-36.5); MEAN PLATELET VOLUME 8.7 FL (7.4-10.4); MONOCYTES # (AUTO) 0.4 X10'3 (0-0.9); MONOCYTES % (AUTO) 3.3 % (2-12); NEUTROPHILS # (AUTO) 10.2 X10'3 (1.8-7.7); NEUTROPHILS % (AUTO) 88.7 % (42-75); PLATELET COUNT 195 X10'3 (140-440); RED CELL DISTRIBUTION WIDTH 14.1 % (11.5-14.5); WHITE BLOOD COUNT 11.5 X10'3 (4.5-11.0)
[2021-06-15] MEDS: K and/or MAG REPLACEMENT MC SCH ×2 (08:00→20:00)
[2021-06-15 08:18] LABS: ALBUMIN 2.1 G/DL (3.4-5.0); ANION GAP 11 (8-16); BLOOD UREA NITROGEN 23 MG/DL (7-18); BUN/CREATININE RATIO 26.7 (5.4-32.0); CALCIUM 8.4 MG/DL (8.5-10.1); CHLORIDE 101 MMOL/L (99-107); CREATININE 0.86 MG/DL (0.60-1.10); GLUCOSE 100 MG/DL (70-104); MAGNESIUM 1.9 MG/DL (1.5-2.4); POTASSIUM 4.4 MMOL/L (3.5-5.1); SODIUM 137 MMOL/L (135-145); TOTAL CARBON DIOXIDE 25.5 MMOL/L (24-32); eGFR 90 ML/MIN
[2021-06-15] MEDS: REMDESIVIR 100 MG in NS 100ml IVPB IV SCH (09:06)
[2021-06-15 10:00] VITALS: BP 111/71
--- NOTE | 2021-06-15 14:38 | NUR ---
received report from sravanthi valentin i agree w/previous nurses physical assessment
--- NOTE | 2021-06-15 14:55 | NUR ---
Problems reprioritized. Patient report given, questions answered & plan of care reviewed with GINA Araiza.
[2021-06-15 18:10] VITALS: BP 111/64
--- NOTE | 2021-06-15 18:16 | NUR ---
gave report to september,
[2021-06-15 22:00] VITALS: BP 111/76
[2021-06-16 02:00] VITALS: BP 127/94
--- NOTE | 2021-06-16 06:14 | NUR ---
Patient in room ORTHO 4024. I have received report from Moni RN and had the opportunity to ask questions and assume patient care.
[2021-06-16 06:28] VITALS: BP 106/69
[2021-06-16 07:22] LABS: BASOPHILS % (AUTO) 0 % (0-1); D-DIMER 2.89 MG/L FEU (0-0.50); EOSINOPHILS % (AUTO) 0.1 % (0-6); HEMATOCRIT 45.7 % (42.0-52.0); HEMOGLOBIN 15.3 g/dl (14.0-17.9); LYMPHOCYTES # (AUTO) 0.9 X10'3 (1.1-4.8); LYMPHOCYTES % (AUTO) 6.8 % (21-51); MEAN CORPUSCULAR HGB CONC 33.4 g/dL (33.0-36.5); MEAN CORPUSCULAR VOLUME 89.9 FL (78-98); MEAN PLATELET VOLUME 8.7 FL (7.4-10.4); MONOCYTES # (AUTO) 0.4 X10'3 (0-0.9); MONOCYTES % (AUTO) 3.1 % (2-12); NEUTROPHILS # (AUTO) 12.3 X10'3 (1.8-7.7); PLATELET COUNT 226 X10'3 (140-440); RED BLOOD COUNT 5.08 X10'6 (4.70-6.10); RED CELL DISTRIBUTION WIDTH 14.6 % (11.5-14.5); WHITE BLOOD COUNT 13.7 X10'3 (4.5-11.0)
[2021-06-16 07:30] LABS: ALBUMIN 2.3 G/DL (3.4-5.0); ANION GAP 11 (8-16); BLOOD UREA NITROGEN 27 MG/DL (7-18); BUN/CREATININE RATIO 28.1 (5.4-32.0); C-REACTIVE PROTEIN 4.41 MG/DL (0.0-0.5); CALCIUM 8.6 MG/DL (8.5-10.1); CHLORIDE 100 MMOL/L (99-107); CREATININE 0.96 MG/DL (0.60-1.10); GLUCOSE 105 MG/DL (70-104); POTASSIUM 4.3 MMOL/L (3.5-5.1); SODIUM 135 MMOL/L (135-145); TOTAL CARBON DIOXIDE 24.5 MMOL/L (24-32); eGFR 79 ML/MIN
[2021-06-16] MEDS: amox tr/potassium clavulanate 875/125mg TAB PO SCH ×2 (07:30→17:42)
[2021-06-16] MEDS: enoxaparin 40mg/0.4ml syringe SUBCUT SCH (07:30)
[2021-06-16] MEDS: aspirin 81mg, enteric-coated 1 TAB TABLET.DR PO SCH (07:30)
[2021-06-16] MEDS: furosemide 20 MG/2 ML vial IV SCH ×2 (07:30→19:28)
[2021-06-16] MEDS: lactobacillus rhamnosus 10,000 MMU CELLS/CAPSULE PO SCH ×2 (07:30→19:28)
[2021-06-16] MEDS: docusate sod 100mg capsule PO SCH ×2 (07:31→19:28)
[2021-06-16] MEDS: dexamethasone inj 6 MG in normal saline 50ml IV soln 50 ML IV SCH ×2 (07:31→19:28)
--- NOTE | 2021-06-16 07:45 | NUR ---
Went in to give patient AM medications and found on all fours in bed, patient noticeably painful and grimacing during med pass but patient does not endorse any pain, sp02 91% on 5 liters of oxygen, tachycardic in the 100s.
[2021-06-16] MEDS: K and/or MAG REPLACEMENT MC SCH ×2 (08:00→20:00)
[2021-06-16] MEDS: spironolactone 25 MG tablet PO SCH (08:00)
[2021-06-16] MEDS: acetaminophen 325mg tablet PO PRN ×2 (09:36→23:47)
[2021-06-16] MEDS: lisinopril 2.5mg tablet PO SCH (09:43)
[2021-06-16 10:39] VITALS: BP 123/59
[2021-06-16 11:00] LABS: ABG HCO3 23.1 mmol/L (22.0-26.0); ABG OXYGEN SATURATION 93.1 % (94-97); ABG PO2 (T) 60.7 mmHg (75.0-100.0); ALLEN'S TEST POSITIVE; FCOHb 0.4 % (0.0-3.9); FLOW 4 L/min; FMetHb 0.3 % (0.0-1.5); FO2Hb 92.4 % (94-97); TOTAL HEMOGLOBIN 16.6 G/dl (14.0-18.0)
--- NOTE | 2021-06-16 13:31 | NUR ---
Initial: Pt admit DX COVID-19, PNA, CHF, and cellulitis per EMR. Pt PO mostly ~100% avg heart healthy meals meeting estimated needs. LBM 06/15 receiving routine colace. No nutrition intervention at this time. Will continue to monitor. Rec: 1. continue heart healthy diet 2. routine bowel care 3. scaled wt this admit; subsequent weekly wts Addendum: 06/16/21 at [address] Amended: Links added.
[2021-06-16 14:38] VITALS: BP 105/58
--- NOTE | 2021-06-16 16:18 | NUR ---
O2 Sat at rest on room air:_87__% If below 89%: Recovery O2 Sat at rest on __3_LPM:__93_%:___% via nasal cannula (mask/nasal cannula, etc..) No further documentation is necessary. If O2 Sat did not drop below 89% on room air,ambulate patient on room air. O2 Sat while ambulating on room air:___% Recovery O2 Sat while ambulating on ___LPM:___% No further documentation is necessary. If patient does not drop below 89% while ambulating, he/she does not qualify for home O2.
[2021-06-16 18:00] VITALS: BP 117/64
--- NOTE | 2021-06-16 18:31 | NUR ---
Problems reprioritized. Patient report given, questions answered & plan of care reviewed with Lizzeth FUENTES.
[2021-06-16 20:32] LABS: D-DIMER 2.19 MG/L FEU (0-0.50)
[2021-06-16 22:37] VITALS: BP 129/80
[2021-06-17 02:00] VITALS: BP 113/73
[2021-06-17 06:00] VITALS: BP 108/73
--- NOTE | 2021-06-17 06:43 | NUR ---
Patient in room ORTHO 4024A. I have received report from GINA BYE and had the opportunity to ask questions and assume patient care.
[2021-06-17] MEDS: docusate sod 100mg capsule PO SCH ×2 (08:00→20:00)
[2021-06-17] MEDS: K and/or MAG REPLACEMENT MC SCH ×2 (08:00→20:00)
[2021-06-17] MEDS: amox tr/potassium clavulanate 875/125mg TAB PO SCH ×2 (08:11→17:26)
[2021-06-17] MEDS: acetaminophen 325mg tablet PO PRN (08:14)
[2021-06-17] MEDS: spironolactone 25 MG tablet PO SCH (08:15)
[2021-06-17] MEDS: aspirin 81mg, enteric-coated 1 TAB TABLET.DR PO SCH (08:15)
[2021-06-17] MEDS: lisinopril 2.5mg tablet PO SCH (08:15)
[2021-06-17] MEDS: lactobacillus rhamnosus 10,000 MMU CELLS/CAPSULE PO SCH ×2 (08:16→21:01)
[2021-06-17] MEDS: enoxaparin 40mg/0.4ml syringe SUBCUT SCH (08:16)
[2021-06-17] MEDS: furosemide 20 MG/2 ML vial IV SCH ×2 (08:17→21:01)
[2021-06-17] MEDS: dexamethasone inj 6 MG in normal saline 50ml IV soln 50 ML IV SCH ×2 (08:18→21:01)
[2021-06-17 10:00] VITALS: BP 95/58
[2021-06-17 14:00] VITALS: BP 126/84
[2021-06-17] MEDS ORDERED: FURO20TA4 PO (14:01)
[2021-06-17] MEDS ORDERED: AMOX-580 PO (14:01)
[2021-06-17] MEDS ORDERED: PRED10TA23 PO (14:01)
--- NOTE | 2021-06-17 14:46 | NUR ---
PT OK TO DC... PER AHSAN, SHIFTMAN, PT CAN DC TOMORROW 06/18/21 AFTER 3PM TO [facility]...O2 WILL BE DELIVERED BEFORE PT CAN DC...DR ZAYAS OK WITH DC PLAN
[2021-06-17 19:00] VITALS: BP 110/74
[2021-06-17 20:00] LABS: D-DIMER 3.16 MG/L FEU (0-0.50)
[2021-06-17 22:00] VITALS: BP 106/70
[2021-06-18 02:00] VITALS: BP 101/65
[2021-06-18 07:01] VITALS: BP 107/67
[2021-06-18] MEDS: dexamethasone inj 6 MG in normal saline 50ml IV soln 50 ML IV SCH ×2 (07:31→19:50)
[2021-06-18] MEDS: lisinopril 2.5mg tablet PO SCH (07:31)
[2021-06-18] MEDS: lactobacillus rhamnosus 10,000 MMU CELLS/CAPSULE PO SCH ×2 (07:32→19:51)
[2021-06-18] MEDS: spironolactone 25 MG tablet PO SCH (07:32)
[2021-06-18] MEDS: acetaminophen 325mg tablet PO PRN ×2 (07:32→19:50)
[2021-06-18] MEDS: aspirin 81mg, enteric-coated 1 TAB TABLET.DR PO SCH (07:32)
[2021-06-18] MEDS: docusate sod 100mg capsule PO SCH ×2 (07:32→19:48)
[2021-06-18] MEDS: amox tr/potassium clavulanate 875/125mg TAB PO SCH ×2 (07:32→17:14)
[2021-06-18] MEDS: enoxaparin 40mg/0.4ml syringe SUBCUT SCH (07:33)
[2021-06-18] MEDS: K and/or MAG REPLACEMENT MC SCH ×2 (07:33→19:51)
--- NOTE | 2021-06-18 07:58 | NUR ---
Pt. sating 86% on 6LPM via regular n/c. No giovanny/ high flow cannulas on unit. CHarge aware. Paged RT twice. Awaiting reply.
[2021-06-18] MEDS: furosemide 20 MG/2 ML vial IV SCH ×2 (08:00→19:50)
[2021-06-18 10:09] VITALS: BP 102/66
[2021-06-18 13:19] LABS: ABG BASE EXCESS -1.1 mmol/L (-2.0-2.0); ABG HCO3 20.4 mmol/L (22.0-26.0); ABG OXYGEN SATURATION 86.6 % (94-97); ABG PCO2 (T) 27.5 mmHg (35.0-48.0); ABG PO2 (T) 48.3 mmHg (75.0-100.0); ALLEN'S TEST POSITIVE; FCOHb 0.8 % (0.0-3.9); FLOW 8 L/min; FMetHb 0.3 % (0.0-1.5); FO2Hb 85.6 % (94-97); TOTAL HEMOGLOBIN 17.8 G/dl (14.0-18.0)
[2021-06-18 14:03] LABS: BASOPHILS % (AUTO) 0 % (0-1); EOSINOPHILS % (AUTO) 0.1 % (0-6); HEMATOCRIT 49.1 % (42.0-52.0); HEMOGLOBIN 16.3 g/dl (14.0-17.9); LYMPHOCYTES # (AUTO) 0.5 X10'3 (1.1-4.8); LYMPHOCYTES % (AUTO) 4.2 % (21-51); MEAN CORPUSCULAR HEMOGLOBIN 29.5 PG (27.0-31.0); MEAN CORPUSCULAR HGB CONC 33.2 g/dL (33.0-36.5); MEAN CORPUSCULAR VOLUME 88.7 FL (78-98); MEAN PLATELET VOLUME 8.8 FL (7.4-10.4); MONOCYTES # (AUTO) 0.3 X10'3 (0-0.9); MONOCYTES % (AUTO) 2.4 % (2-12); NEUTROPHILS # (AUTO) 11.8 X10'3 (1.8-7.7); NEUTROPHILS % (AUTO) 93.3 % (42-75); PLATELET COUNT 323 X10'3 (140-440); RED BLOOD COUNT 5.53 X10'6 (4.70-6.10); RED CELL DISTRIBUTION WIDTH 14.6 % (11.5-14.5); WHITE BLOOD COUNT 12.6 X10'3 (4.5-11.0)
[2021-06-18 14:08] VITALS: BP 103/66
[2021-06-18 14:12] LABS: ALANINE AMINOTRANSFERASE 51 U/L (12-78); ALBUMIN 1.9 G/DL (3.4-5.0); ALBUMIN/GLOBULIN RATIO 0.4 (1.1-1.5); ALKALINE PHOSPHATASE 109 IU/L (46-116); ANION GAP 10 (8-16); ASPARTATE AMINO TRANSFERASE 25 U/L (10-37); BILIRUBIN,TOTAL 0.7 MG/DL (0.1-1.0); BLOOD UREA NITROGEN 38 MG/DL (7-18); BUN/CREATININE RATIO 32.8 (5.4-32.0); CALCIUM 8.6 MG/DL (8.5-10.1); CHLORIDE 100 MMOL/L (99-107); CREATININE 1.16 MG/DL (0.60-1.10); GLUCOSE 220 MG/DL (70-104); POTASSIUM 4.8 MMOL/L (3.5-5.1); SODIUM 134 MMOL/L (135-145); TOTAL CARBON DIOXIDE 24.4 MMOL/L (24-32); TOTAL PROTEIN 6.4 G/DL (6.4-8.2); eGFR 64 ML/MIN
[2021-06-18 14:55] LABS: HEMOGLOBIN A1C 6.7 % (4.5-6.2)
[2021-06-18] MEDS: CefTRIAXone 2gm/D5W 50ml BAG 50 ML IV SCH (14:56)
[2021-06-18] MEDS: heparin, porcine 5000 units/ml vial SQ SCH (14:57)
--- NOTE | 2021-06-18 15:12 | NUR ---
PAGER ID: [phone] MESSAGE: Manohar Grijalva [id number] A1C 6.7. Do you want to order hyperglycemia protocol? Leanna [phone]
[2021-06-18] MEDS ORDERED: glucagon, human recombinant 1mg kit SUBCUT PRN (15:45)
[2021-06-18] MEDS ORDERED: dextrose ORAL solution 15 GM/59 ML bottle PO PRN ×2 (15:45)
[2021-06-18] MEDS ORDERED: dextrose 50%-water 50ml dispensing syringe IV PRN ×2 (15:45)
[2021-06-18] MEDS ORDERED: MESSAGE TO PHARMACY PO ONE (15:45)
[2021-06-18 18:00] VITALS: BP 110/81
--- NOTE | 2021-06-18 18:13 | NUR ---
Gave report to Sonia FUENTES
[2021-06-18 19:58] LABS: D-DIMER 1.39 MG/L FEU (0-0.50)
[2021-06-18] MEDS: insulin glargine (Lantus) pen - multi-dose SQ SCH (21:00)
[2021-06-18 22:00] VITALS: BP 115/76
--- NOTE | 2021-06-18 22:00 | NUR ---
patient very upset about blood sugar checks. very verbal about not wanting them "I may as well roll over a if this is what I have to put up with. I'm just getting sicker and sicker here. I need to just walk out of here and go home." educated patient on his right to refuse and will notify day RN that patient upset about blood sugar checks. will continue to encourage compliance.
[2021-06-19] VITALS (7 sets, daily range): BP systolic 96–122; BP diastolic 64–86
--- NOTE | 2021-06-19 03:00 | NUR ---
Took over care of patient at this time
--- NOTE | 2021-06-19 06:31 | NUR ---
Problems reprioritized. Patient report given, questions answered & plan of care reviewed with Shawna FUENTES.
--- NOTE | 2021-06-19 06:37 | NUR ---
Patient in room ORTHO 4024. I have received report from mary fishman and had the opportunity to ask questions and assume patient care.
[2021-06-19] MEDS: furosemide 20 MG/2 ML vial IV SCH ×2 (07:09→20:57)
[2021-06-19] MEDS: docusate sod 100mg capsule PO SCH ×2 (07:09→20:57)
[2021-06-19] MEDS: aspirin 81mg, enteric-coated 1 TAB TABLET.DR PO SCH (07:09)
[2021-06-19] MEDS: lactobacillus rhamnosus 10,000 MMU CELLS/CAPSULE PO SCH ×2 (07:09→20:57)
[2021-06-19] MEDS: CefTRIAXone 2gm/D5W 50ml BAG 50 ML IV SCH (07:09)
[2021-06-19] MEDS: amox tr/potassium clavulanate 875/125mg TAB PO SCH (07:09)
[2021-06-19] MEDS: heparin, porcine 5000 units/ml vial SQ SCH ×4 (07:10→23:42)
[2021-06-19] MEDS: lisinopril 2.5mg tablet PO SCH (07:12)
[2021-06-19] MEDS: spironolactone 25 MG tablet PO SCH (07:13)
[2021-06-19] MEDS: K and/or MAG REPLACEMENT MC SCH ×2 (08:00→20:00)
[2021-06-19] MEDS: dexamethasone inj 6 MG in normal saline 50ml IV soln 50 ML IV SCH ×2 (08:15→21:02)
[2021-06-19 11:23] LABS: BASOPHILS % (AUTO) 0.3 % (0-1); EOSINOPHILS % (AUTO) 0 % (0-6); HEMATOCRIT 48.9 % (42.0-52.0); HEMOGLOBIN 16.3 g/dl (14.0-17.9); LYMPHOCYTES # (AUTO) 0.6 X10'3 (1.1-4.8); LYMPHOCYTES % (AUTO) 4.9 % (21-51); MEAN CORPUSCULAR HEMOGLOBIN 29.5 PG (27.0-31.0); MEAN CORPUSCULAR HGB CONC 33.3 g/dL (33.0-36.5); MEAN CORPUSCULAR VOLUME 88.8 FL (78-98); MEAN PLATELET VOLUME 8.1 FL (7.4-10.4); MONOCYTES # (AUTO) 0.6 X10'3 (0-0.9); MONOCYTES % (AUTO) 4.7 % (2-12); NEUTROPHILS # (AUTO) 11.6 X10'3 (1.8-7.7); NEUTROPHILS % (AUTO) 90.1 % (42-75); PLATELET COUNT 352 X10'3 (140-440); RED BLOOD COUNT 5.51 X10'6 (4.70-6.10); RED CELL DISTRIBUTION WIDTH 14.6 % (11.5-14.5); WHITE BLOOD COUNT 12.9 X10'3 (4.5-11.0)
[2021-06-19 11:47] LABS: ALANINE AMINOTRANSFERASE 49 U/L (12-78); ALBUMIN 1.9 G/DL (3.4-5.0); ALBUMIN/GLOBULIN RATIO 0.4 (1.1-1.5); ALKALINE PHOSPHATASE 103 IU/L (46-116); ANION GAP 10 (8-16); ASPARTATE AMINO TRANSFERASE 32 U/L (10-37); BILIRUBIN,TOTAL 0.4 MG/DL (0.1-1.0); BLOOD UREA NITROGEN 40 MG/DL (7-18); BUN/CREATININE RATIO 39.2 (5.4-32.0); CALCIUM 8.4 MG/DL (8.5-10.1); CHLORIDE 100 MMOL/L (99-107); CREATININE 1.02 MG/DL (0.60-1.10); GLUCOSE 130 MG/DL (70-104); POTASSIUM 4.6 MMOL/L (3.5-5.1); SODIUM 134 MMOL/L (135-145); TOTAL CARBON DIOXIDE 24.4 MMOL/L (24-32); TOTAL PROTEIN 6.6 G/DL (6.4-8.2); eGFR 74 ML/MIN
--- NOTE | 2021-06-19 15:35 | NUR ---
DM Consult: Pt A1C 6.7% DX DM per MD w/ no prior hx DM per EMR. RYAN d/w RN who reports pt in denial of DM believes all caused by current steroids regimen. Pt Glu mostly 110-180mg/dl w/ one time 220mg/dl receiving dexamethasone for 8 days prior to A1C draw not on hyperglycemia protocol until today per EMR. A1C likely impacted by steroids. Pt now on carb controlled diet w/ prior heart healthy cancelled in EMR. RD attempted to contact pt via TC regarding DM diet guidelines though no reponse. Given pt A1C w/ current steroid regimen and Glu hx this admit further ed deferred. Will remain available if pt nutrition questions/concerns. Addendum: 06/19/21 at [address] Amended: Links added.
--- NOTE | 2021-06-19 18:24 | NUR ---
Problems reprioritized. Patient report given, questions answered & plan of care reviewed with VINICIO FUENTES.
[2021-06-19] MEDS: insulin glargine (Lantus) pen - multi-dose SQ SCH (21:00)
[2021-06-20 02:00] VITALS: BP 111/81
[2021-06-20 06:00] VITALS: BP 108/66
--- NOTE | 2021-06-20 06:30 | NUR ---
Patient in room ORTHO 4024. I have received report from GINA Green and had the opportunity to ask questions and assume patient care.
[2021-06-20] MEDS: K and/or MAG REPLACEMENT MC SCH ×2 (08:00→20:00)
[2021-06-20] MEDS: CefTRIAXone 2gm/D5W 50ml BAG 50 ML IV SCH (08:29)
[2021-06-20] MEDS: spironolactone 25 MG tablet PO SCH (08:30)
[2021-06-20] MEDS: furosemide 20 MG/2 ML vial IV SCH ×2 (08:30→20:56)
[2021-06-20] MEDS: docusate sod 100mg capsule PO SCH ×2 (08:30→20:56)
[2021-06-20] MEDS: aspirin 81mg, enteric-coated 1 TAB TABLET.DR PO SCH (08:30)
[2021-06-20] MEDS: heparin, porcine 5000 units/ml vial SQ SCH ×3 (08:30→23:21)
[2021-06-20] MEDS: dexamethasone inj 6 MG in normal saline 50ml IV soln 50 ML IV SCH ×2 (08:30→20:56)
[2021-06-20] MEDS: lactobacillus rhamnosus 10,000 MMU CELLS/CAPSULE PO SCH ×2 (08:31→20:56)
[2021-06-20] MEDS: lisinopril 2.5mg tablet PO SCH (08:31)
[2021-06-20 11:00] VITALS: BP 115/68
[2021-06-20 11:05] LABS: BASOPHILS # (AUTO) 0.1 X10'3 (0-0.2); BASOPHILS % (AUTO) 0.4 % (0-1); EOSINOPHILS % (AUTO) 0.3 % (0-6); HEMATOCRIT 49.7 % (42.0-52.0); HEMOGLOBIN 16.6 g/dl (14.0-17.9); LYMPHOCYTES % (AUTO) 7.2 % (21-51); MEAN CORPUSCULAR HEMOGLOBIN 29.6 PG (27.0-31.0); MEAN CORPUSCULAR HGB CONC 33.3 g/dL (33.0-36.5); MEAN CORPUSCULAR VOLUME 88.6 FL (78-98); MEAN PLATELET VOLUME 8.8 FL (7.4-10.4); MONOCYTES # (AUTO) 0.6 X10'3 (0-0.9); MONOCYTES % (AUTO) 4.4 % (2-12); NEUTROPHILS # (AUTO) 12.1 X10'3 (1.8-7.7); NEUTROPHILS % (AUTO) 87.7 % (42-75); PLATELET COUNT 356 X10'3 (140-440); RED BLOOD COUNT 5.61 X10'6 (4.70-6.10); RED CELL DISTRIBUTION WIDTH 14.5 % (11.5-14.5); WHITE BLOOD COUNT 13.8 X10'3 (4.5-11.0)
[2021-06-20 11:10] LABS: ANION GAP 10 (8-16); BLOOD UREA NITROGEN 43 MG/DL (7-18); BUN/CREATININE RATIO 41.3 (5.4-32.0); CALCIUM 8.8 MG/DL (8.5-10.1); CHLORIDE 99 MMOL/L (99-107); CREATININE 1.04 MG/DL (0.60-1.10); GLUCOSE 115 MG/DL (70-104); POTASSIUM 4.3 MMOL/L (3.5-5.1); SODIUM 133 MMOL/L (135-145); eGFR 72 ML/MIN
[2021-06-20 11:13] LABS: D-DIMER 2.04 MG/L FEU (0-0.50)
[2021-06-20] MEDS: insulin Lispro (HumaLOG) vial - multi-dose SQ SCH ×2 (13:29→18:56)
[2021-06-20 15:00] VITALS: BP 122/75
[2021-06-20 17:37] VITALS: BP 123/78
--- NOTE | 2021-06-20 18:24 | NUR ---
Problems reprioritized. Patient report given, questions answered & plan of care reviewed with GINA Martinez.
[2021-06-20] MEDS: insulin glargine (Lantus) pen - multi-dose SQ SCH (21:04)
[2021-06-20] MEDS: HYDROcodone/acetaminophen 5mg/325mg tablet PO PRN (21:21)
[2021-06-20 22:00] VITALS: BP 110/74
[2021-06-21 02:00] VITALS: BP 113/77
[2021-06-21 06:10] VITALS: BP 105/73
--- NOTE | 2021-06-21 06:10 | NUR ---
Patient in room ORTHO 4024. I have received report from Ann FUENTES and had the opportunity to ask questions and assume patient care.
--- NOTE | 2021-06-21 06:17 | NUR ---
Problems reprioritized. Patient report given, questions answered & plan of care reviewed with GINA ARANGO.
[2021-06-21] MEDS: dexamethasone inj 6 MG in normal saline 50ml IV soln 50 ML IV SCH ×2 (07:49→20:37)
[2021-06-21] MEDS: docusate sod 100mg capsule PO SCH ×2 (07:49→20:37)
[2021-06-21] MEDS: lisinopril 2.5mg tablet PO SCH (07:49)
[2021-06-21] MEDS: lactobacillus rhamnosus 10,000 MMU CELLS/CAPSULE PO SCH ×2 (07:49→20:37)
[2021-06-21] MEDS: CefTRIAXone 2gm/D5W 50ml BAG 50 ML IV SCH (07:49)
[2021-06-21] MEDS: aspirin 81mg, enteric-coated 1 TAB TABLET.DR PO SCH (07:49)
[2021-06-21] MEDS: heparin, porcine 5000 units/ml vial SQ SCH ×3 (07:50→23:51)
[2021-06-21] MEDS: spironolactone 25 MG tablet PO SCH (07:50)
[2021-06-21] MEDS: furosemide 20 MG/2 ML vial IV SCH (07:51)
[2021-06-21] MEDS: K and/or MAG REPLACEMENT MC SCH ×2 (08:00→20:00)
[2021-06-21] MEDS: insulin Lispro (HumaLOG) vial - multi-dose SQ SCH ×3 (08:03→18:45)
[2021-06-21 10:00] VITALS: BP 117/69
[2021-06-21 11:43] LABS: D-DIMER 1.62 MG/L FEU (0-0.50)
[2021-06-21 14:00] VITALS: BP 94/64
[2021-06-21] MEDS: ALBUTEROL INHALER 1 PUFF/90 MCG INHALER IH SCH (14:00)
[2021-06-21 18:00] VITALS: BP 98/66
[2021-06-21] MEDS ORDERED: iohexol 350MG/ML 100ml bottle IV ONE (19:28)
[2021-06-21] MEDS: carVEDilol 3.125mg tablet PO SCH (20:37)
[2021-06-21] MEDS: insulin glargine (Lantus) pen - multi-dose SQ SCH (20:50)
[2021-06-21 22:00] VITALS: BP 106/70
[2021-06-22 06:00] VITALS: BP 97/60
--- NOTE | 2021-06-22 06:20 | NUR ---
RECEIVED REPORT FROM GINA LONGO
--- NOTE | 2021-06-22 06:28 | NUR ---
Problems reprioritized. Patient report given, questions answered & plan of care reviewed with GINA CHAN.
[2021-06-22] MEDS: aspirin 81mg, enteric-coated 1 TAB TABLET.DR PO SCH (07:09)
[2021-06-22] MEDS: lactobacillus rhamnosus 10,000 MMU CELLS/CAPSULE PO SCH ×2 (07:09→21:26)
[2021-06-22] MEDS: docusate sod 100mg capsule PO SCH ×2 (07:09→19:16)
[2021-06-22] MEDS: dexamethasone inj 6 MG in normal saline 50ml IV soln 50 ML IV SCH ×2 (07:10→19:22)
[2021-06-22] MEDS: heparin, porcine 5000 units/ml vial SQ SCH ×2 (07:10→16:17)
[2021-06-22] MEDS: K and/or MAG REPLACEMENT MC SCH ×2 (07:23→20:00)
[2021-06-22 07:56] LABS: D-DIMER 1.53 MG/L FEU (0-0.50)
[2021-06-22] MEDS: lisinopril 2.5mg tablet PO SCH (08:00)
[2021-06-22] MEDS: carVEDilol 3.125mg tablet PO SCH ×2 (08:00→19:17)
[2021-06-22] MEDS: spironolactone 25 MG tablet PO SCH (08:00)
[2021-06-22] MEDS: ALBUTEROL INHALER 1 PUFF/90 MCG INHALER IH SCH ×2 (08:00→20:00)
[2021-06-22] MEDS: insulin Lispro (HumaLOG) vial - multi-dose SQ SCH ×3 (08:48→19:15)
[2021-06-22] MEDS: CefTRIAXone 2gm/D5W 50ml BAG 50 ML IV SCH (08:49)
[2021-06-22 10:00] VITALS: BP 116/59
[2021-06-22 14:00] VITALS: BP 100/63
[2021-06-22] MEDS: ALBUTEROL INHALER 1 PUFF/90 MCG INHALER IH PRN ×2 (17:11→20:50)
[2021-06-22 18:00] VITALS: BP 106/71
--- NOTE | 2021-06-22 18:10 | NUR ---
gave report to sravanthi shah
[2021-06-22] MEDS: insulin glargine (Lantus) pen - multi-dose SQ SCH (21:28)
[2021-06-22 22:00] VITALS: BP 119/69
[2021-06-22] MEDS: HYDROcodone/acetaminophen 5mg/325mg tablet PO PRN (22:52)
[2021-06-23] MEDS: heparin, porcine 5000 units/ml vial SQ SCH ×4 (00:29→23:50)
[2021-06-23] MEDS: ALBUTEROL INHALER 1 PUFF/90 MCG INHALER IH PRN (02:16)
[2021-06-23] MEDS: ALBUTEROL INHALER 1 PUFF/90 MCG INHALER IH SCH ×4 (02:17→20:53)
[2021-06-23 02:30] VITALS: BP 100/64
[2021-06-23 06:00] VITALS: BP 98/55
--- NOTE | 2021-06-23 06:21 | NUR ---
Report to Yolis FUENTES.
--- NOTE | 2021-06-23 06:26 | NUR ---
Patient in room ORTHO 4024A. I have received report from GINA ARMENDARIZ and had the opportunity to ask questions and assume patient care.
--- NOTE | 2021-06-23 07:57 | NUR ---
Reassessment: Pt continues on Carb controlled diet w/ mostly 100% intake of meals meeting needs at this time. Noted to be on 8L HF oxygen. LBM / receiving routine colace. No nutrition intervention implemented at this time, will continue to monitor. Rec: 1. continue CCHO diet as tolerated 2. routine bowel care 3. scaled wt this admit; subsequent weekly wts Addendum: 06/23/21 at [address] Amended: Links added.
[2021-06-23] MEDS: carVEDilol 3.125mg tablet PO SCH ×2 (08:00→20:48)
[2021-06-23] MEDS: spironolactone 25 MG tablet PO SCH (08:00)
[2021-06-23] MEDS: K and/or MAG REPLACEMENT MC SCH ×2 (08:00→19:16)
[2021-06-23] MEDS: lisinopril 2.5mg tablet PO SCH (08:00)
[2021-06-23] MEDS: lactobacillus rhamnosus 10,000 MMU CELLS/CAPSULE PO SCH ×2 (08:10→20:48)
[2021-06-23] MEDS: docusate sod 100mg capsule PO SCH ×2 (08:10→20:48)
[2021-06-23] MEDS: aspirin 81mg, enteric-coated 1 TAB TABLET.DR PO SCH (08:10)
[2021-06-23] MEDS: dexamethasone inj 6 MG in normal saline 50ml IV soln 50 ML IV SCH ×2 (08:17→20:48)
[2021-06-23] MEDS: CefTRIAXone 2gm/D5W 50ml BAG 50 ML IV SCH (08:20)
[2021-06-23] MEDS: insulin Lispro (HumaLOG) vial - multi-dose SQ SCH ×3 (08:59→18:53)
--- NOTE | 2021-06-23 09:22 | NUR ---
Page Sent PAGER ID: [phone] MESSAGE: YANELIS 5430-RE: EVGENY STEVENSON [id number]....CAN I ORDER NEW LABS ON PT, LAST SET WAS ON 06/20/21...CBC, CMP, DDIM, LDH, CRP
[2021-06-23 10:00] VITALS: BP 103/57
[2021-06-23 10:13] LABS: BASOPHILS % (AUTO) 0.4 % (0-1); EOSINOPHILS % (AUTO) 0.1 % (0-6); HEMATOCRIT 44.8 % (42.0-52.0); HEMOGLOBIN 14.7 g/dl (14.0-17.9); LYMPHOCYTES % (AUTO) 9.6 % (21-51); MEAN CORPUSCULAR HEMOGLOBIN 29.2 PG (27.0-31.0); MEAN CORPUSCULAR HGB CONC 32.9 g/dL (33.0-36.5); MEAN CORPUSCULAR VOLUME 88.6 FL (78-98); MEAN PLATELET VOLUME 8.4 FL (7.4-10.4); MONOCYTES # (AUTO) 0.5 X10'3 (0-0.9); MONOCYTES % (AUTO) 4.5 % (2-12); NEUTROPHILS # (AUTO) 8.7 X10'3 (1.8-7.7); NEUTROPHILS % (AUTO) 85.4 % (42-75); PLATELET COUNT 276 X10'3 (140-440); RED BLOOD COUNT 5.05 X10'6 (4.70-6.10); RED CELL DISTRIBUTION WIDTH 14.7 % (11.5-14.5); WHITE BLOOD COUNT 10.2 X10'3 (4.5-11.0)
[2021-06-23 10:18] LABS: ALANINE AMINOTRANSFERASE 47 U/L (12-78); ALBUMIN 1.9 G/DL (3.4-5.0); ALBUMIN/GLOBULIN RATIO 0.5 (1.1-1.5); ALKALINE PHOSPHATASE 77 IU/L (46-116); ANION GAP 6 (8-16); ASPARTATE AMINO TRANSFERASE 28 U/L (10-37); BILIRUBIN,TOTAL 0.4 MG/DL (0.1-1.0); BLOOD UREA NITROGEN 33 MG/DL (7-18); BUN/CREATININE RATIO 37.1 (5.4-32.0); CHLORIDE 102 MMOL/L (99-107); CREATININE 0.89 MG/DL (0.60-1.10); GLUCOSE 116 MG/DL (70-104); POTASSIUM 4.3 MMOL/L (3.5-5.1); SODIUM 133 MMOL/L (135-145); TOTAL CARBON DIOXIDE 25.2 MMOL/L (24-32); TOTAL PROTEIN 5.8 G/DL (6.4-8.2); eGFR 86 ML/MIN
[2021-06-23 10:42] LABS: D-DIMER 1.26 MG/L FEU (0-0.50)
[2021-06-23 14:00] VITALS: BP 97/61
[2021-06-23 18:00] VITALS: BP 115/71
--- NOTE | 2021-06-23 18:15 | NUR ---
Problems reprioritized. Patient report given, questions answered & plan of care reviewed with GINA ARMENDARIZ & GINA REED.
[2021-06-23] MEDS: insulin glargine (Lantus) pen - multi-dose SQ SCH (20:50)
[2021-06-23 20:56] VITALS: BP 112/64
[2021-06-24] MEDS: ALBUTEROL INHALER 1 PUFF/90 MCG INHALER IH PRN ×2 (01:42→01:44)
[2021-06-24] MEDS: ALBUTEROL INHALER 1 PUFF/90 MCG INHALER IH SCH ×4 (01:44→20:09)
[2021-06-24 02:00] VITALS: BP 121/69
[2021-06-24 06:00] VITALS: BP 133/73
--- NOTE | 2021-06-24 06:48 | NUR ---
Patient in room ORTHO 4024A. I have received report from GINA Vaca and had the opportunity to ask questions and assume patient care.
[2021-06-24 07:35] LABS: BASOPHILS % (AUTO) 0.2 % (0-1); EOSINOPHILS % (AUTO) 0.1 % (0-6); HEMATOCRIT 43.5 % (42.0-52.0); HEMOGLOBIN 14.2 g/dl (14.0-17.9); LYMPHOCYTES # (AUTO) 1.1 X10'3 (1.1-4.8); LYMPHOCYTES % (AUTO) 9.1 % (21-51); MEAN CORPUSCULAR HEMOGLOBIN 29.2 PG (27.0-31.0); MEAN CORPUSCULAR HGB CONC 32.7 g/dL (33.0-36.5); MEAN CORPUSCULAR VOLUME 89.3 FL (78-98); MEAN PLATELET VOLUME 8.4 FL (7.4-10.4); MONOCYTES # (AUTO) 0.7 X10'3 (0-0.9); MONOCYTES % (AUTO) 5.6 % (2-12); NEUTROPHILS # (AUTO) 10.6 X10'3 (1.8-7.7); PLATELET COUNT 254 X10'3 (140-440); RED BLOOD COUNT 4.87 X10'6 (4.70-6.10); RED CELL DISTRIBUTION WIDTH 14.5 % (11.5-14.5); WHITE BLOOD COUNT 12.5 X10'3 (4.5-11.0)
[2021-06-24 07:52] LABS: ALANINE AMINOTRANSFERASE 55 U/L (12-78); ALBUMIN 1.9 G/DL (3.4-5.0); ALBUMIN/GLOBULIN RATIO 0.5 (1.1-1.5); ALKALINE PHOSPHATASE 78 IU/L (46-116); ANION GAP 9 (8-16); ASPARTATE AMINO TRANSFERASE 25 U/L (10-37); BILIRUBIN,TOTAL 0.4 MG/DL (0.1-1.0); BLOOD UREA NITROGEN 35 MG/DL (7-18); BUN/CREATININE RATIO 42.2 (5.4-32.0); C-REACTIVE PROTEIN 0.16 MG/DL (0.0-0.5); CALCIUM 8.2 MG/DL (8.5-10.1); CHLORIDE 105 MMOL/L (99-107); CREATININE 0.83 MG/DL (0.60-1.10); GLUCOSE 90 MG/DL (70-104); POTASSIUM 4.5 MMOL/L (3.5-5.1); SODIUM 137 MMOL/L (135-145); TOTAL CARBON DIOXIDE 23.5 MMOL/L (24-32); TOTAL PROTEIN 5.8 G/DL (6.4-8.2); eGFR > 90 ML/MIN
[2021-06-24] MEDS: K and/or MAG REPLACEMENT MC SCH ×2 (08:00→20:00)
[2021-06-24 08:32] LABS: D-DIMER 1.12 MG/L FEU (0-0.50)
[2021-06-24] MEDS: insulin Lispro (HumaLOG) vial - multi-dose SQ SCH ×3 (08:41→18:38)
[2021-06-24] MEDS: dexamethasone inj 6 MG in normal saline 50ml IV soln 50 ML IV SCH ×2 (08:47→20:03)
[2021-06-24] MEDS: lactobacillus rhamnosus 10,000 MMU CELLS/CAPSULE PO SCH ×2 (08:48→20:03)
[2021-06-24] MEDS: carVEDilol 3.125mg tablet PO SCH ×2 (08:49→20:00)
[2021-06-24] MEDS: aspirin 81mg, enteric-coated 1 TAB TABLET.DR PO SCH (08:49)
[2021-06-24] MEDS: docusate sod 100mg capsule PO SCH ×2 (08:49→20:03)
[2021-06-24] MEDS: lisinopril 2.5mg tablet PO SCH (08:49)
[2021-06-24] MEDS: spironolactone 25 MG tablet PO SCH (08:50)
[2021-06-24] MEDS: CefTRIAXone 2gm/D5W 50ml BAG 50 ML IV SCH (08:50)
[2021-06-24] MEDS: heparin, porcine 5000 units/ml vial SQ SCH ×2 (08:51→16:01)
[2021-06-24 10:00] VITALS: BP 118/61
--- NOTE | 2021-06-24 13:45 | NUR ---
RELIEVING RN FOR LUNCH, PT IS RESTING QUIETLY ON LEFT SIDE, EASILY AROUSEABLE, GAVE INSULIN PER PROTOCOL, RESP EVEN AND UNLABORED, NO RESP DISTRESS
[2021-06-24 14:00] VITALS: BP 100/60
--- NOTE | 2021-06-24 18:23 | NUR ---
Problems reprioritized. Patient report given, questions answered & plan of care reviewed with GINA ARMENDARIZ.
--- NOTE | 2021-06-24 18:25 | NUR ---
Received report from Alisha FUENTES.
[2021-06-24 18:30] VITALS: BP 103/60
[2021-06-24] MEDS: insulin glargine (Lantus) pen - multi-dose SQ SCH (21:02)
[2021-06-24 22:22] VITALS: BP 102/60
[2021-06-25] MEDS: heparin, porcine 5000 units/ml vial SQ SCH ×3 (01:20→16:09)
[2021-06-25 02:21] VITALS: BP 116/68
[2021-06-25] MEDS: ALBUTEROL INHALER 1 PUFF/90 MCG INHALER IH SCH ×3 (03:45→15:09)
[2021-06-25 06:00] VITALS: BP 108/68
--- NOTE | 2021-06-25 06:18 | NUR ---
Report to German FUENTES.
[2021-06-25 07:39] LABS: BASOPHILS % (AUTO) 0.2 % (0-1); EOSINOPHILS % (AUTO) 0.1 % (0-6); HEMATOCRIT 43.4 % (42.0-52.0); HEMOGLOBIN 14.1 g/dl (14.0-17.9); LYMPHOCYTES # (AUTO) 1.4 X10'3 (1.1-4.8); LYMPHOCYTES % (AUTO) 11.6 % (21-51); MEAN CORPUSCULAR HEMOGLOBIN 28.9 PG (27.0-31.0); MEAN CORPUSCULAR HGB CONC 32.5 g/dL (33.0-36.5); MEAN PLATELET VOLUME 8.4 FL (7.4-10.4); MONOCYTES # (AUTO) 0.8 X10'3 (0-0.9); MONOCYTES % (AUTO) 6.4 % (2-12); NEUTROPHILS % (AUTO) 81.7 % (42-75); PLATELET COUNT 253 X10'3 (140-440); RED BLOOD COUNT 4.87 X10'6 (4.70-6.10); RED CELL DISTRIBUTION WIDTH 14.5 % (11.5-14.5); WHITE BLOOD COUNT 12.2 X10'3 (4.5-11.0)
[2021-06-25] MEDS: dexamethasone inj 6 MG in normal saline 50ml IV soln 50 ML IV SCH ×2 (07:47→20:17)
[2021-06-25] MEDS: aspirin 81mg, enteric-coated 1 TAB TABLET.DR PO SCH (07:59)
[2021-06-25] MEDS: lactobacillus rhamnosus 10,000 MMU CELLS/CAPSULE PO SCH ×2 (07:59→20:17)
[2021-06-25] MEDS: docusate sod 100mg capsule PO SCH ×2 (07:59→20:17)
[2021-06-25] MEDS: carVEDilol 3.125mg tablet PO SCH ×2 (08:00→20:17)
[2021-06-25] MEDS: spironolactone 25 MG tablet PO SCH (08:00)
[2021-06-25] MEDS: K and/or MAG REPLACEMENT MC SCH ×2 (08:00→19:13)
[2021-06-25] MEDS: lisinopril 2.5mg tablet PO SCH (08:01)
[2021-06-25 08:04] LABS: ALANINE AMINOTRANSFERASE 53 U/L (12-78); ALBUMIN 2.1 G/DL (3.4-5.0); ALBUMIN/GLOBULIN RATIO 0.6 (1.1-1.5); ALKALINE PHOSPHATASE 72 IU/L (46-116); ANION GAP 8 (8-16); ASPARTATE AMINO TRANSFERASE 32 U/L (10-37); BILIRUBIN,TOTAL 0.4 MG/DL (0.1-1.0); BLOOD UREA NITROGEN 32 MG/DL (7-18); BUN/CREATININE RATIO 45.7 (5.4-32.0); C-REACTIVE PROTEIN 0.16 MG/DL (0.0-0.5); CALCIUM 8.7 MG/DL (8.5-10.1); CHLORIDE 105 MMOL/L (99-107); GLUCOSE 92 MG/DL (70-104); POTASSIUM 4.8 MMOL/L (3.5-5.1); SODIUM 136 MMOL/L (135-145); TOTAL CARBON DIOXIDE 22.8 MMOL/L (24-32); TOTAL PROTEIN 5.8 G/DL (6.4-8.2); eGFR > 90 ML/MIN
[2021-06-25 08:23] LABS: D-DIMER 1.01 MG/L FEU (0-0.50)
[2021-06-25] MEDS: insulin Lispro (HumaLOG) vial - multi-dose SQ SCH ×3 (08:37→18:32)
[2021-06-25] MEDS: CefTRIAXone 2gm/D5W 50ml BAG 50 ML IV SCH (08:40)
--- NOTE | 2021-06-25 09:48 | NUR ---
O2 Sat at rest on room air:__90_% If below 89%: Recovery O2 Sat at rest on ___LPM:___%:___% via (mask/nasal cannula, etc..) No further documentation is necessary. If O2 Sat did not drop below 89% on room air,ambulate patient on room air. O2 Sat while ambulating on room air:__84_% Recovery O2 Sat while ambulating on __4_LPM:__92_% No further documentation is necessary. If patient does not drop below 89% while ambulating, he/she does not qualify for home O2.
[2021-06-25 10:07] VITALS: BP 121/62
[2021-06-25 10:18] LABS: PLATELET ESTIMATE NORMAL; TOTAL CELLS COUNTED 100
--- NOTE | 2021-06-25 11:17 | NUR ---
DM Consult: addressed; see prior RD note. Addendum: 06/25/21 at [address] Amended: Links added.
[2021-06-25 14:17] VITALS: BP 104/66
[2021-06-25 18:00] VITALS: BP 108/67
--- NOTE | 2021-06-25 18:00 | NUR ---
Patient in room ORTHO 4024. I have received report from GINA Porter and had the opportunity to ask questions and assume patient care.
[2021-06-25] MEDS: ALBUTEROL INHALER 1 PUFF/90 MCG INHALER IH PRN (20:52)
[2021-06-25] MEDS: insulin glargine (Lantus) pen - multi-dose SQ SCH (21:10)
[2021-06-25 22:00] VITALS: BP 104/61
[2021-06-26] MEDS: heparin, porcine 5000 units/ml vial SQ SCH ×4 (00:07→23:56)
[2021-06-26 02:00] VITALS: BP 108/68
[2021-06-26 06:00] VITALS: BP 114/76
--- NOTE | 2021-06-26 06:30 | NUR ---
Problems reprioritized. Patient report given, questions answered & plan of care reviewed with GINA Parra.
--- NOTE | 2021-06-26 06:31 | NUR ---
Patient in room ORTHO 4024. I have received report from Hyun FUENTES and had the opportunity to ask questions and assume patient care.
[2021-06-26] MEDS: CefTRIAXone 2gm/D5W 50ml BAG 50 ML IV SCH (07:31)
[2021-06-26] MEDS: dexamethasone inj 6 MG in dextrose 5%-water 100 ML IV SCH ×2 (07:31→20:30)
[2021-06-26] MEDS: lisinopril 2.5mg tablet PO SCH (07:32)
[2021-06-26] MEDS: lactobacillus rhamnosus 10,000 MMU CELLS/CAPSULE PO SCH ×2 (07:32→20:29)
[2021-06-26] MEDS: aspirin 81mg, enteric-coated 1 TAB TABLET.DR PO SCH (07:33)
[2021-06-26] MEDS: spironolactone 25 MG tablet PO SCH (07:33)
[2021-06-26] MEDS: docusate sod 100mg capsule PO SCH ×2 (07:33→20:29)
[2021-06-26] MEDS: carVEDilol 3.125mg tablet PO SCH ×2 (07:33→20:30)
[2021-06-26] MEDS: K and/or MAG REPLACEMENT MC SCH ×2 (07:33→20:00)
[2021-06-26] MEDS: ALBUTEROL INHALER 1 PUFF/90 MCG INHALER IH SCH ×2 (08:00→20:00)
[2021-06-26 09:16] LABS: BASOPHILS # (AUTO) 0.1 X10'3 (0-0.2); BASOPHILS % (AUTO) 0.5 % (0-1); EOSINOPHILS # (AUTO) 0.1 X10'3 (0-0.9); EOSINOPHILS % (AUTO) 0.6 % (0-6); HEMATOCRIT 43.4 % (42.0-52.0); HEMOGLOBIN 14.2 g/dl (14.0-17.9); LYMPHOCYTES # (AUTO) 1.3 X10'3 (1.1-4.8); LYMPHOCYTES % (AUTO) 12.9 % (21-51); MEAN CORPUSCULAR HEMOGLOBIN 29.1 PG (27.0-31.0); MEAN CORPUSCULAR HGB CONC 32.7 g/dL (33.0-36.5); MEAN CORPUSCULAR VOLUME 89.1 FL (78-98); MEAN PLATELET VOLUME 8.5 FL (7.4-10.4); MONOCYTES # (AUTO) 0.7 X10'3 (0-0.9); MONOCYTES % (AUTO) 6.8 % (2-12); NEUTROPHILS # (AUTO) 8.3 X10'3 (1.8-7.7); NEUTROPHILS % (AUTO) 79.2 % (42-75); PLATELET COUNT 225 X10'3 (140-440); RED BLOOD COUNT 4.87 X10'6 (4.70-6.10); RED CELL DISTRIBUTION WIDTH 14.9 % (11.5-14.5); WHITE BLOOD COUNT 10.5 X10'3 (4.5-11.0)
[2021-06-26 09:29] LABS: D-DIMER 0.83 MG/L FEU (0-0.50)
[2021-06-26 09:32] LABS: ALANINE AMINOTRANSFERASE 86 U/L (12-78); ALBUMIN 2.1 G/DL (3.4-5.0); ALBUMIN/GLOBULIN RATIO 0.6 (1.1-1.5); ALKALINE PHOSPHATASE 72 IU/L (46-116); ANION GAP 9 (8-16); ASPARTATE AMINO TRANSFERASE 50 U/L (10-37); BILIRUBIN,TOTAL 0.3 MG/DL (0.1-1.0); BLOOD UREA NITROGEN 34 MG/DL (7-18); BUN/CREATININE RATIO 35.8 (5.4-32.0); C-REACTIVE PROTEIN 0.05 MG/DL (0.0-0.5); CALCIUM 8.1 MG/DL (8.5-10.1); CHLORIDE 102 MMOL/L (99-107); CREATININE 0.95 MG/DL (0.60-1.10); GLUCOSE 158 MG/DL (70-104); POTASSIUM 4.3 MMOL/L (3.5-5.1); SODIUM 134 MMOL/L (135-145); TOTAL CARBON DIOXIDE 23.2 MMOL/L (24-32); TOTAL PROTEIN 5.6 G/DL (6.4-8.2); eGFR 80 ML/MIN
[2021-06-26] MEDS: insulin Lispro (HumaLOG) vial - multi-dose SQ SCH (09:54)
[2021-06-26 10:02] VITALS: BP 99/55
[2021-06-26 14:48] VITALS: BP 102/55
[2021-06-26 18:00] VITALS: BP 113/71
--- NOTE | 2021-06-26 18:01 | NUR ---
Problems reprioritized. Patient report given, questions answered & plan of care reviewed with Sheryl FUENTES.
--- NOTE | 2021-06-26 18:33 | NUR ---
Patient in room ORTHO 4024. I have received report from AYAAN FUENTES and had the opportunity to ask questions and assume patient care.
[2021-06-26] MEDS: ALBUTEROL INHALER 1 PUFF/90 MCG INHALER IH PRN (21:31)
[2021-06-26 22:00] VITALS: BP 108/66
[2021-06-27 02:00] VITALS: BP 109/63
[2021-06-27] MEDS: ALBUTEROL INHALER 1 PUFF/90 MCG INHALER IH SCH ×4 (02:00→21:37)
[2021-06-27 06:00] VITALS: BP 110/72
--- NOTE | 2021-06-27 06:27 | NUR ---
Problems reprioritized. Patient report given, questions answered & plan of care reviewed with MALCOM FUENTES.
[2021-06-27] MEDS: lactobacillus rhamnosus 10,000 MMU CELLS/CAPSULE PO SCH ×2 (08:27→20:09)
[2021-06-27] MEDS: carVEDilol 3.125mg tablet PO SCH ×2 (08:27→20:09)
[2021-06-27] MEDS: docusate sod 100mg capsule PO SCH ×2 (08:27→20:09)
[2021-06-27] MEDS: lisinopril 2.5mg tablet PO SCH (08:27)
[2021-06-27] MEDS: aspirin 81mg, enteric-coated 1 TAB TABLET.DR PO SCH (08:27)
[2021-06-27] MEDS: dexamethasone inj 6 MG in dextrose 5%-water 100 ML IV SCH ×2 (08:28→20:12)
[2021-06-27] MEDS: spironolactone 25 MG tablet PO SCH (08:29)
[2021-06-27] MEDS: heparin, porcine 5000 units/ml vial SQ SCH ×2 (08:29→16:11)
[2021-06-27 08:31] LABS: BASOPHILS % (AUTO) 0.2 % (0-1); EOSINOPHILS % (AUTO) 0.1 % (0-6); HEMATOCRIT 44.9 % (42.0-52.0); HEMOGLOBIN 14.7 g/dl (14.0-17.9); LYMPHOCYTES # (AUTO) 1.5 X10'3 (1.1-4.8); LYMPHOCYTES % (AUTO) 13.7 % (21-51); MEAN CORPUSCULAR HEMOGLOBIN 29.2 PG (27.0-31.0); MEAN CORPUSCULAR HGB CONC 32.7 g/dL (33.0-36.5); MEAN CORPUSCULAR VOLUME 89.1 FL (78-98); MEAN PLATELET VOLUME 8.8 FL (7.4-10.4); MONOCYTES # (AUTO) 0.7 X10'3 (0-0.9); MONOCYTES % (AUTO) 6.5 % (2-12); NEUTROPHILS # (AUTO) 8.8 X10'3 (1.8-7.7); NEUTROPHILS % (AUTO) 79.5 % (42-75); PLATELET COUNT 230 X10'3 (140-440); RED BLOOD COUNT 5.04 X10'6 (4.70-6.10); RED CELL DISTRIBUTION WIDTH 14.9 % (11.5-14.5)
[2021-06-27 08:39] LABS: D-DIMER 0.76 MG/L FEU (0-0.50)
[2021-06-27 08:56] LABS: ALANINE AMINOTRANSFERASE 96 U/L (12-78); ALBUMIN 2.3 G/DL (3.4-5.0); ALBUMIN/GLOBULIN RATIO 0.6 (1.1-1.5); ALKALINE PHOSPHATASE 73 IU/L (46-116); ANION GAP 11 (8-16); ASPARTATE AMINO TRANSFERASE 43 U/L (10-37); BILIRUBIN,TOTAL 0.4 MG/DL (0.1-1.0); BLOOD UREA NITROGEN 37 MG/DL (7-18); BUN/CREATININE RATIO 45.7 (5.4-32.0); CALCIUM 8.6 MG/DL (8.5-10.1); CHLORIDE 104 MMOL/L (99-107); CREATININE 0.81 MG/DL (0.60-1.10); GLUCOSE 101 MG/DL (70-104); POTASSIUM 4.3 MMOL/L (3.5-5.1); SODIUM 136 MMOL/L (135-145); TOTAL CARBON DIOXIDE 21.5 MMOL/L (24-32); TOTAL PROTEIN 6.3 G/DL (6.4-8.2); eGFR > 90 ML/MIN
[2021-06-27 09:04] LABS: C-REACTIVE PROTEIN < 0.05 MG/DL (0.0-0.5)
[2021-06-27] MEDS: K and/or MAG REPLACEMENT MC SCH ×2 (09:13→20:00)
[2021-06-27 09:19] LABS: PLATELET ESTIMATE NORMAL; TOTAL CELLS COUNTED 100
[2021-06-27] MEDS: CefTRIAXone 2gm/D5W 50ml BAG 50 ML IV SCH (09:21)
[2021-06-27 09:53] VITALS: BP 109/68
[2021-06-27 14:00] VITALS: BP 106/61
[2021-06-27 18:00] VITALS: BP 109/65
[2021-06-27 22:00] VITALS: BP 102/62
[2021-06-28] MEDS: heparin, porcine 5000 units/ml vial SQ SCH ×4 (00:24→23:40)
[2021-06-28 02:00] VITALS: BP 97/58
[2021-06-28] MEDS: ALBUTEROL INHALER 1 PUFF/90 MCG INHALER IH SCH ×4 (02:00→20:51)
[2021-06-28 06:00] VITALS: BP 115/71
--- NOTE | 2021-06-28 06:32 | NUR ---
Problems reprioritized. Patient report given, questions answered & plan of care reviewed with YANELIS FUENTES.
--- NOTE | 2021-06-28 06:54 | NUR ---
Patient in room ORTHO 4024A. I have received report from GINA TAVERA and had the opportunity to ask questions and assume patient care.
[2021-06-28] MEDS: dexamethasone inj 6 MG in dextrose 5%-water 100 ML IV SCH ×2 (07:42→22:25)
[2021-06-28] MEDS: lactobacillus rhamnosus 10,000 MMU CELLS/CAPSULE PO SCH ×2 (07:43→20:00)
[2021-06-28] MEDS: docusate sod 100mg capsule PO SCH ×2 (07:43→20:00)
[2021-06-28] MEDS: aspirin 81mg, enteric-coated 1 TAB TABLET.DR PO SCH (07:43)
[2021-06-28] MEDS: lisinopril 2.5mg tablet PO SCH (07:43)
[2021-06-28] MEDS: carVEDilol 3.125mg tablet PO SCH ×2 (07:44→20:00)
[2021-06-28] MEDS: spironolactone 25 MG tablet PO SCH (07:45)
[2021-06-28 07:49] LABS: BASOPHILS % (AUTO) 0.2 % (0-1); EOSINOPHILS % (AUTO) 0.2 % (0-6); HEMATOCRIT 42.6 % (42.0-52.0); HEMOGLOBIN 14.1 g/dl (14.0-17.9); LYMPHOCYTES # (AUTO) 1.6 X10'3 (1.1-4.8); LYMPHOCYTES % (AUTO) 14.2 % (21-51); MEAN CORPUSCULAR HEMOGLOBIN 29.2 PG (27.0-31.0); MEAN CORPUSCULAR HGB CONC 33.1 g/dL (33.0-36.5); MEAN CORPUSCULAR VOLUME 88.2 FL (78-98); MEAN PLATELET VOLUME 8.7 FL (7.4-10.4); MONOCYTES # (AUTO) 0.9 X10'3 (0-0.9); MONOCYTES % (AUTO) 7.3 % (2-12); NEUTROPHILS # (AUTO) 9.1 X10'3 (1.8-7.7); NEUTROPHILS % (AUTO) 78.1 % (42-75); PLATELET COUNT 214 X10'3 (140-440); RED BLOOD COUNT 4.83 X10'6 (4.70-6.10); WHITE BLOOD COUNT 11.6 X10'3 (4.5-11.0)
[2021-06-28] MEDS: CefTRIAXone 2gm/D5W 50ml BAG 50 ML IV SCH (07:49)
[2021-06-28] MEDS: K and/or MAG REPLACEMENT MC SCH ×2 (08:00→20:00)
[2021-06-28 08:06] LABS: ALANINE AMINOTRANSFERASE 82 U/L (12-78); ALBUMIN 2.2 G/DL (3.4-5.0); ALBUMIN/GLOBULIN RATIO 0.6 (1.1-1.5); ALKALINE PHOSPHATASE 67 IU/L (46-116); ANION GAP 10 (8-16); ASPARTATE AMINO TRANSFERASE 32 U/L (10-37); BILIRUBIN,TOTAL 0.4 MG/DL (0.1-1.0); BLOOD UREA NITROGEN 40 MG/DL (7-18); BUN/CREATININE RATIO 50.6 (5.4-32.0); CALCIUM 8.2 MG/DL (8.5-10.1); CHLORIDE 104 MMOL/L (99-107); CREATININE 0.79 MG/DL (0.60-1.10); GLUCOSE 103 MG/DL (70-104); POTASSIUM 4.6 MMOL/L (3.5-5.1); SODIUM 134 MMOL/L (135-145); TOTAL CARBON DIOXIDE 20.4 MMOL/L (24-32); eGFR > 90 ML/MIN
[2021-06-28 10:00] VITALS: BP 103/64
[2021-06-28 10:07] LABS: C-REACTIVE PROTEIN 0.06 MG/DL (0.0-0.5)
[2021-06-28 10:34] LABS: D-DIMER 0.57 MG/L FEU (0-0.50)
[2021-06-28 14:00] VITALS: BP 92/58
--- NOTE | 2021-06-28 18:28 | NUR ---
Problems reprioritized. Patient report given, questions answered & plan of care reviewed with GINA KRUEGER.
[2021-06-28 18:30] VITALS: BP 111/63
[2021-06-28 22:00] VITALS: BP 108/63
[2021-06-29 02:00] VITALS: BP 101/54
[2021-06-29] MEDS: ALBUTEROL INHALER 1 PUFF/90 MCG INHALER IH SCH ×4 (03:18→14:00)
[2021-06-29 06:00] VITALS: BP 104/66
--- NOTE | 2021-06-29 06:26 | NUR ---
Patient in room ORTHO 4024A. I have received report from GINA Montenegro and had the opportunity to ask questions and assume patient care.
[2021-06-29] MEDS: K and/or MAG REPLACEMENT MC SCH (07:27)
[2021-06-29] MEDS: dexamethasone inj 6 MG in dextrose 5%-water 100 ML IV SCH (07:32)
[2021-06-29] MEDS: docusate sod 100mg capsule PO SCH (07:34)
[2021-06-29] MEDS: lactobacillus rhamnosus 10,000 MMU CELLS/CAPSULE PO SCH (07:34)
[2021-06-29] MEDS: spironolactone 25 MG tablet PO SCH (07:38)
[2021-06-29] MEDS: CefTRIAXone 2gm/D5W 50ml BAG 50 ML IV SCH (07:39)
[2021-06-29] MEDS: heparin, porcine 5000 units/ml vial SQ SCH ×2 (07:39→16:26)
[2021-06-29] MEDS: lisinopril 2.5mg tablet PO SCH (07:39)
[2021-06-29] MEDS: carVEDilol 3.125mg tablet PO SCH (07:39)
[2021-06-29] MEDS: aspirin 81mg, enteric-coated 1 TAB TABLET.DR PO SCH (07:39)
[2021-06-29 07:47] VITALS: BP 104/58
[2021-06-29 08:32] LABS: BASOPHILS % (AUTO) 0.3 % (0-1); EOSINOPHILS % (AUTO) 0.3 % (0-6); HEMATOCRIT 44.1 % (42.0-52.0); HEMOGLOBIN 14.4 g/dl (14.0-17.9); LYMPHOCYTES # (AUTO) 1.5 X10'3 (1.1-4.8); LYMPHOCYTES % (AUTO) 12.8 % (21-51); MEAN CORPUSCULAR HEMOGLOBIN 28.9 PG (27.0-31.0); MEAN CORPUSCULAR HGB CONC 32.7 g/dL (33.0-36.5); MEAN CORPUSCULAR VOLUME 88.5 FL (78-98); MEAN PLATELET VOLUME 9.2 FL (7.4-10.4); MONOCYTES # (AUTO) 0.6 X10'3 (0-0.9); MONOCYTES % (AUTO) 5.4 % (2-12); NEUTROPHILS # (AUTO) 9.3 X10'3 (1.8-7.7); NEUTROPHILS % (AUTO) 81.2 % (42-75); PLATELET COUNT 202 X10'3 (140-440); RED BLOOD COUNT 4.98 X10'6 (4.70-6.10); RED CELL DISTRIBUTION WIDTH 15.3 % (11.5-14.5); WHITE BLOOD COUNT 11.5 X10'3 (4.5-11.0)
[2021-06-29 09:00] LABS: ALANINE AMINOTRANSFERASE 83 U/L (12-78); ALBUMIN 2.3 G/DL (3.4-5.0); ALBUMIN/GLOBULIN RATIO 0.6 (1.1-1.5); ALKALINE PHOSPHATASE 64 IU/L (46-116); ANION GAP 11 (8-16); ASPARTATE AMINO TRANSFERASE 30 U/L (10-37); BILIRUBIN,TOTAL 0.4 MG/DL (0.1-1.0); BLOOD UREA NITROGEN 44 MG/DL (7-18); BUN/CREATININE RATIO 63.8 (5.4-32.0); CALCIUM 8.5 MG/DL (8.5-10.1); CHLORIDE 104 MMOL/L (99-107); CREATININE 0.69 MG/DL (0.60-1.10); GLUCOSE 106 MG/DL (70-104); POTASSIUM 4.5 MMOL/L (3.5-5.1); SODIUM 135 MMOL/L (135-145); TOTAL CARBON DIOXIDE 20.5 MMOL/L (24-32); TOTAL PROTEIN 6.1 G/DL (6.4-8.2); eGFR > 90 ML/MIN
[2021-06-29 09:44] LABS: PLATELET ESTIMATE NORMAL; TOTAL CELLS COUNTED 100
[2021-06-29 09:45] LABS: BURR CELLS FEW; SCHISTOCYTES FEW
--- NOTE | 2021-06-29 09:56 | NUR ---
O2 Sat at rest on room air:__93% Recovery O2 Sat at rest on ___LPM:___%:___% via_nasal cannula__(mask/nasal cannula, etc..) No further documentation is necessary. If O2 Sat did not drop below 89% on room air,ambulate patient on room air. O2 Sat while ambulating on room air:_91-83__% Recovery O2 Sat while ambulating on _1__LPM:__95_% No further documentation is necessary. If patient does not drop below 89% while ambulating, he/she does not qualify for home O2.
[2021-06-29 10:37] VITALS: BP 110/92
--- NOTE | 2021-06-29 11:21 | NUR ---
F/u 06/29: Pt continues on Carb controlled diet PO 100% avg meals meeting needs at this time. LBM 06/28 per EMR receiving routine colace. No nutrition intervention intervention at this time. Will continue to monitor. Rec: 1. continue CCHO diet as tolerated 2. routine bowel care 3. scaled wt this admit; subsequent weekly wts Addendum: 06/29/21 at [address] Amended: Links added.
--- NOTE | 2021-06-29 16:56 | NUR ---
Oxygen delivered, patient medications called into [facility] pharmacy per request. Taxi arrived and patient wheeled out with, O2, compressor and two bags of belongings.
--- NOTE | 2021-06-29 16:56 | NUR ---
PT DC IN STABLE CONDITION. PT WAS CARED FOR BY GINA INTERIANO, ORIENTEE... I AGREE WITH ALL CHARTING
== END 2021-06-29 16:45 | disposition home or self-care (01) | DRG 137 ==
LOC: ER 15:10 → ED HOLD 19:56 → ORTHO 4S 21:29
PROVIDERS: ADMIT Internal Medicine; ATTEND Internal Medicine
PROC: XW033E5 Introduction of Remdesivir Anti-infective into Peripheral Vein, Percutaneous Approach, New Technology Group 5 (ICD-10-PCS; principal; 2021-06-11)
PROC: 5A0935A Assistance with Respiratory Ventilation, Less than 24 Consecutive Hours, High Flow/Velocity Cannula (ICD-10-PCS; 2021-06-18)
PROC: 5A0945A Assistance with Respiratory Ventilation, 24-96 Consecutive Hours, High Flow/Velocity Cannula (ICD-10-PCS; 2021-06-19)
PROC: B32T1ZZ Computerized Tomography (CT Scan) of Left Pulmonary Artery using Low Osmolar Contrast (ICD-10-PCS; 2021-06-21)
PROC: B3201ZZ Computerized Tomography (CT Scan) of Thoracic Aorta using Low Osmolar Contrast (ICD-10-PCS; 2021-06-21)
PROC: B32S1ZZ Computerized Tomography (CT Scan) of Right Pulmonary Artery using Low Osmolar Contrast (ICD-10-PCS; 2021-06-21)
PROC: 5A0935A Assistance with Respiratory Ventilation, Less than 24 Consecutive Hours, High Flow/Velocity Cannula (ICD-10-PCS; 2021-06-24)
DX: U07.1 COVID-19 (principal); J96.01 Acute respiratory failure with hypoxia; J12.82 Pneumonia due to coronavirus disease 2019; I50.23 Acute on chronic systolic (congestive) heart failure; E43 Unspecified severe protein-calorie malnutrition; I42.7 Cardiomyopathy due to drug and external agent; L03.116 Cellulitis of left lower limb; E87.1 Hypo-osmolality and hyponatremia; E83.42 Hypomagnesemia; F17.210 Nicotine dependence, cigarettes, uncomplicated; F15.90 Other stimulant use, unspecified, uncomplicated; R74.01 Elevation of levels of liver transaminase levels; E11.9 Type 2 diabetes mellitus without complications; I25.10 Atherosclerotic heart disease of native coronary artery without angina pectoris; Z59.00 Homelessness unspecified; I25.2 Old myocardial infarction; Z79.899 Other long term (current) drug therapy; Z68.23 Body mass index [BMI] 23.0-23.9, adult; Z71.51 Drug abuse counseling and surveillance of drug abuser
CPT/HCPCS: 36415; 36600; 71045; 71275; 80048; 80053; 82803; 82948; 83036; 83605; 83735; 83880; 84132; 84145; 84484; 85007; 85018; 85025; 85379; 86140; 87040; 87081; 87502; 87503; 87635; 93005; 93306; 94640; 94760; 97116; 97161; 97530; 97535; 99285; C9803; G0378; J0696; J1100; J1644; J1650; J1815; J1940; J3490; J7060; Q9967

== ENCOUNTER 2021-07-01 12:49 | Emergency (ER) | payer MEDICAID ==
[~2021-07-01] VITALS: Ht 172.7 cm; Wt 52.3 kg
[~2021-07-01 12:49] MED LIST changes: +AMOX-580 PO; +ASPI-1397 PO; -FURO-150 PO; +FURO20TA4 PO; -LISI2.5T14 PO; +LISI2.5T89 PO; -SPIR25TA PO; +SPIR25TA5 PO
[2021-07-01 13:27] LABS: BASOPHILS # (AUTO) 0.2 X10'3 (0-0.2); BASOPHILS % (AUTO) 1.2 % (0-1); EOSINOPHILS # (AUTO) 0.1 X10'3 (0-0.9); HEMATOCRIT 45.3 % (42.0-52.0); HEMOGLOBIN 14.7 g/dl (14.0-17.9); LYMPHOCYTES # (AUTO) 1.3 X10'3 (1.1-4.8); LYMPHOCYTES % (AUTO) 10.5 % (21-51); MEAN CORPUSCULAR HEMOGLOBIN 28.9 PG (27.0-31.0); MEAN CORPUSCULAR HGB CONC 32.5 g/dL (33.0-36.5); MEAN CORPUSCULAR VOLUME 89.1 FL (78-98); MEAN PLATELET VOLUME 8.4 FL (7.4-10.4); MONOCYTES # (AUTO) 1.2 X10'3 (0-0.9); MONOCYTES % (AUTO) 9.8 % (2-12); NEUTROPHILS # (AUTO) 9.8 X10'3 (1.8-7.7); NEUTROPHILS % (AUTO) 77.5 % (42-75); PLATELET COUNT 151 X10'3 (140-440); RED BLOOD COUNT 5.09 X10'6 (4.70-6.10); RED CELL DISTRIBUTION WIDTH 15.5 % (11.5-14.5); WHITE BLOOD COUNT 12.6 X10'3 (4.5-11.0)
[2021-07-01 13:36] LABS: ALANINE AMINOTRANSFERASE 66 U/L (12-78); ALBUMIN 2.5 G/DL (3.4-5.0); ALBUMIN/GLOBULIN RATIO 0.7 (1.1-1.5); ALKALINE PHOSPHATASE 92 IU/L (46-116); ANION GAP 6 (8-16); ASPARTATE AMINO TRANSFERASE 37 U/L (10-37); BILIRUBIN,TOTAL 0.5 MG/DL (0.1-1.0); BLOOD UREA NITROGEN 36 MG/DL (7-18); BUN/CREATININE RATIO 43.4 (5.4-32.0); CALCIUM 8.1 MG/DL (8.5-10.1); CHLORIDE 99 MMOL/L (99-107); CREATININE 0.83 MG/DL (0.60-1.10); GLUCOSE 92 MG/DL (70-104); POTASSIUM 4.5 MMOL/L (3.5-5.1); SODIUM 130 MMOL/L (135-145); TOTAL CARBON DIOXIDE 24.8 MMOL/L (24-32); TOTAL PROTEIN 6.2 G/DL (6.4-8.2); eGFR > 90 ML/MIN
[2021-07-01 21:04] VITALS: BP 125/80
== END 2021-07-01 21:34 | disposition home or self-care (01) ==
LOC: ER 12:50
DX: Z13.89 Encounter for screening for other disorder (principal); I50.9 Heart failure, unspecified; F15.90 Other stimulant use, unspecified, uncomplicated; Z59.00 Homelessness unspecified; Z79.2 Long term (current) use of antibiotics; Z79.82 Long term (current) use of aspirin; Z79.899 Other long term (current) drug therapy
CPT/HCPCS: 36415; 71045; 80053; 83880; 84484; 85025; 85610; 93005; 99285

== ENCOUNTER 2021-10-06 17:27 | Emergency (ER) | payer MEDICAID ==
[~2021-10-06] VITALS: Ht 175.3 cm; Wt 70.5 kg
[2021-10-06 17:28] VITALS: BP 142/92
== END 2021-10-06 19:15 | disposition home or self-care (01) ==
LOC: ER 17:28
DX: J06.9 Acute upper respiratory infection, unspecified (principal); I50.9 Heart failure, unspecified; F15.90 Other stimulant use, unspecified, uncomplicated; Z56.0 Unemployment, unspecified; Z79.82 Long term (current) use of aspirin; Z79.2 Long term (current) use of antibiotics; Z79.899 Other long term (current) drug therapy
CPT/HCPCS: 99281

== ENCOUNTER 2021-10-07 23:48 | Inpatient (IN) | payer MEDICAID ==
[~2021-10-07] VITALS: Ht 175.3 cm; Wt 70.5 kg
[2021-10-08] MEDS ORDERED: dexamethasone sod phosphate 10mg/ml inj IV STA (00:07)
[2021-10-08 01:24] LABS: BASOPHILS # (AUTO) 0.1 X10'3 (0-0.2); BASOPHILS % (AUTO) 0.6 % (0-1); EOSINOPHILS # (AUTO) 0.1 X10'3 (0-0.9); EOSINOPHILS % (AUTO) 0.7 % (0-6); HEMATOCRIT 40.4 % (42.0-52.0); HEMOGLOBIN 13.2 g/dl (14.0-17.9); LYMPHOCYTES # (AUTO) 1.7 X10'3 (1.1-4.8); LYMPHOCYTES % (AUTO) 15.7 % (21-51); MEAN CORPUSCULAR HEMOGLOBIN 29.5 PG (27.0-31.0); MEAN CORPUSCULAR HGB CONC 32.6 g/dL (33.0-36.5); MEAN CORPUSCULAR VOLUME 90.4 FL (78-98); MONOCYTES # (AUTO) 1.1 X10'3 (0-0.9); MONOCYTES % (AUTO) 10.4 % (2-12); NEUTROPHILS # (AUTO) 7.9 X10'3 (1.8-7.7); NEUTROPHILS % (AUTO) 72.6 % (42-75); PLATELET COUNT 252 X10'3 (140-440); RED BLOOD COUNT 4.47 X10'6 (4.70-6.10); RED CELL DISTRIBUTION WIDTH 16.3 % (11.5-14.5); WHITE BLOOD COUNT 10.9 X10'3 (4.5-11.0)
[2021-10-08 01:33] LABS: APTT 25 SECONDS (22-32)
[2021-10-08 01:34] LABS: ALANINE AMINOTRANSFERASE 99 U/L (12-78); ALBUMIN 2.5 G/DL (3.4-5.0); ALBUMIN/GLOBULIN RATIO 0.5 (1.1-1.5); ALKALINE PHOSPHATASE 132 IU/L (46-116); ANION GAP 11 (8-16); ASPARTATE AMINO TRANSFERASE 49 U/L (10-37); BILIRUBIN,TOTAL 0.8 MG/DL (0.1-1.0); BLOOD UREA NITROGEN 24 MG/DL (7-18); BUN/CREATININE RATIO 18.3 (5.4-32.0); CALCIUM 8.4 MG/DL (8.5-10.1); CHLORIDE 104 MMOL/L (99-107); CREATININE 1.31 MG/DL (0.60-1.10); GLUCOSE 109 MG/DL (70-104); POTASSIUM 4.1 MMOL/L (3.5-5.1); SODIUM 137 MMOL/L (135-145); TOTAL CARBON DIOXIDE 22.4 MMOL/L (24-32); TOTAL PROTEIN 7.3 G/DL (6.4-8.2); eGFR 55 ML/MIN
--- NOTE | 2021-10-08 01:39 | NUR ---
SPOKE TO DR Chisholm ABOUT PT'S TACHYCARDIA. HE WILL ORDER A CT D/T [place]
[2021-10-08] MEDS ORDERED: iohexol 350MG/ML 100ml bottle IV ONE (01:57)
--- NOTE | 2021-10-08 02:30 | NUR ---
PT TO CT
--- NOTE | 2021-10-08 03:45 | NUR ---
SPOKE TO DR Chisholm REGARDING CONTINUED TACHYCARDIA IN THE LOW 120S. CT RESULT IN. DR Chisholm HAS REVIEWED CT. NO NEW ORDERS AT THIS TIME.
[2021-10-08] MEDS ORDERED: furosemide 10 MG/1 ML 10ml inj IV ONE (04:10)
[2021-10-08] MEDS ORDERED: FURO-150 PO (04:14)
[2021-10-08] MEDS ORDERED: magnesium 2GM in 50ml NS 50 ML IV PRN (04:30)
[2021-10-08] MEDS ORDERED: ondansetron/PF 4mg/2ml inj IV PRN (04:30)
[2021-10-08] MEDS ORDERED: ipratropium/albuterol 3ml nebule NEB PRN (04:30)
[2021-10-08] MEDS ORDERED: HYDROcodone/acetaminophen 5mg/325mg tablet PO PRN (04:30)
[2021-10-08] MEDS ORDERED: magnesium hydroxide 30ml (MOM) UD suspension PO PRN (04:30)
[2021-10-08] MEDS ORDERED: mag hydrox/Alum hydrox/simeth 30ml oral suspension PO PRN (04:30)
[2021-10-08] MEDS ORDERED: albuterol 2.5 MG/3 ML nebule NEB PRN (04:30)
[2021-10-08] MEDS ORDERED: potassium CL 10mEq/100ml bag 100 ML IV PRN (04:30)
[2021-10-08] MEDS ORDERED: HYDROcodone/acetaminophen 10/325mg tab PO PRN (04:30)
[2021-10-08] MEDS ORDERED: acetaminophen 325mg tablet PO PRN ×2 (04:30)
[2021-10-08] MEDS ORDERED: magnesium 4gm in 100ml NS 100 ML IV PRN (04:30)
[2021-10-08] MEDS ORDERED: PERFLUTREN PROTEIN-A MICROSPHR (Optison) 0.22 MG/ML 3ML VIAL IV ONE (04:30)
[2021-10-08] MEDS ORDERED: potassium Cl 20 mEq SR tablet PO PRN ×2 (04:30)
--- NOTE | 2021-10-08 04:44 | NUR ---
DR MCMILLAN IN ROOM W/ PT
[2021-10-08 05:49] LABS: URINE AMPHETAMINE SCREEN NEGATIVE (Neg); URINE BARBITUATE SCREEN NEGATIVE (Neg); URINE BENZODIAZEPINES SCREEN NEGATIVE (Neg); URINE CANNABINOID SCREEN NEGATIVE (Neg); URINE COCAINE SCREEN NEGATIVE (Neg); URINE METHADONE SCREEN NEGATIVE (Neg); URINE OPIATE SCREEN NEGATIVE (Neg); URINE PHENCYCLIDINE SCREEN NEGATIVE (Neg)
[2021-10-08] MEDS: K and/or MAG REPLACEMENT MC SCH ×2 (08:00→19:45)
[2021-10-08] MEDS: methylPREDNISolone sod succ 125mg/2ml vial IV SCH ×2 (08:42→16:19)
[2021-10-08] MEDS: furosemide 10 MG/1 ML 10ml inj IV SCH ×2 (08:42→19:44)
[2021-10-08] MEDS: docusate sod 100mg capsule PO SCH ×2 (08:42→19:39)
[2021-10-08] MEDS: aspirin 81mg, enteric-coated 1 TAB TABLET.DR PO SCH (08:43)
[2021-10-08] MEDS: lisinopril 2.5mg tablet PO SCH (08:43)
[2021-10-08] MEDS: carvedilol 6.25mg tablet PO SCH ×2 (08:43→19:39)
[2021-10-08] MEDS: spironolactone 25 MG tablet PO SCH (08:43)
[2021-10-08] MEDS: moxifloxacin 0.5% ophthalmic drops 3ml EACHEYE SCH ×2 (10:02→19:41)
[2021-10-08] MEDS: enoxaparin 40mg/0.4ml syringe SQ SCH (19:40)
[2021-10-08 21:12] VITALS: BP 95/54
[2021-10-08 22:00] VITALS: BP 91/72
[2021-10-09] MEDS: methylPREDNISolone sod succ 125mg/2ml vial IV SCH ×3 (00:33→16:54)
[2021-10-09 02:00] VITALS: BP 109/68
[2021-10-09 06:00] VITALS: BP 110/77
[2021-10-09 06:37] LABS: BASOPHILS % (AUTO) 0.1 % (0-1); EOSINOPHILS % (AUTO) 0 % (0-6); HEMATOCRIT 37.7 % (42.0-52.0); LYMPHOCYTES # (AUTO) 0.8 X10'3 (1.1-4.8); MEAN CORPUSCULAR HEMOGLOBIN 28.4 PG (27.0-31.0); MEAN CORPUSCULAR VOLUME 88.9 FL (78-98); MEAN PLATELET VOLUME 7.7 FL (7.4-10.4); MONOCYTES # (AUTO) 0.5 X10'3 (0-0.9); MONOCYTES % (AUTO) 3.6 % (2-12); NEUTROPHILS # (AUTO) 12.4 X10'3 (1.8-7.7); NEUTROPHILS % (AUTO) 90.3 % (42-75); PLATELET COUNT 236 X10'3 (140-440); RED BLOOD COUNT 4.24 X10'6 (4.70-6.10); RED CELL DISTRIBUTION WIDTH 16.2 % (11.5-14.5); WHITE BLOOD COUNT 13.7 X10'3 (4.5-11.0)
[2021-10-09 07:05] LABS: ALANINE AMINOTRANSFERASE 70 U/L (12-78); ALBUMIN 2.1 G/DL (3.4-5.0); ALBUMIN/GLOBULIN RATIO 0.5 (1.1-1.5); ALKALINE PHOSPHATASE 96 IU/L (46-116); ANION GAP 7 (8-16); ASPARTATE AMINO TRANSFERASE 37 U/L (10-37); BILIRUBIN,TOTAL 0.7 MG/DL (0.1-1.0); BLOOD UREA NITROGEN 31 MG/DL (7-18); BUN/CREATININE RATIO 23.1 (5.4-32.0); CALCIUM 7.8 MG/DL (8.5-10.1); CHLORIDE 103 MMOL/L (99-107); CREATININE 1.34 MG/DL (0.60-1.10); GLUCOSE 145 MG/DL (70-104); MAGNESIUM 1.8 MG/DL (1.5-2.4); POTASSIUM 3.5 MMOL/L (3.5-5.1); SODIUM 138 MMOL/L (135-145); TOTAL CARBON DIOXIDE 27.6 MMOL/L (24-32); TOTAL PROTEIN 6.3 G/DL (6.4-8.2); eGFR 54 ML/MIN
[2021-10-09] MEDS: docusate sod 100mg capsule PO SCH ×2 (08:00→19:31)
[2021-10-09] MEDS: lisinopril 2.5mg tablet PO SCH (08:00)
[2021-10-09] MEDS: carvedilol 6.25mg tablet PO SCH ×2 (08:00→19:32)
[2021-10-09] MEDS: spironolactone 25 MG tablet PO SCH (08:00)
[2021-10-09] MEDS: aspirin 81mg, enteric-coated 1 TAB TABLET.DR PO SCH (08:00)
[2021-10-09] MEDS: moxifloxacin 0.5% ophthalmic drops 3ml EACHEYE SCH ×2 (08:00→19:31)
[2021-10-09] MEDS: K and/or MAG REPLACEMENT MC SCH ×2 (08:00→19:31)
[2021-10-09] MEDS: furosemide 10 MG/1 ML 10ml inj IV SCH ×2 (08:00→19:31)
[2021-10-09 12:00] VITALS: BP 145/79
[2021-10-09 16:00] VITALS: BP 95/60
[2021-10-09 18:00] VITALS: BP 110/70
[2021-10-09] MEDS: enoxaparin 40mg/0.4ml syringe SQ SCH (19:32)
[2021-10-09 22:00] VITALS: BP 97/55
[2021-10-10] VITALS (7 sets, daily range): BP systolic 107–125; BP diastolic 60–87
[2021-10-10] MEDS: methylPREDNISolone sod succ 125mg/2ml vial IV SCH ×2 (00:02→08:32)
--- NOTE | 2021-10-10 01:00 | NUR ---
This is a 65-year-old male, admitted 10/08/2021, day 2 of hospitalization, full code, no isolation, no restraints. NDA. This patient presents ED with chief complaint of progressive dyspnea x2 weeks. The patient has been out of his Lasix and has known systolic heart failure within LVEF of 10 to 15% on echocardiogram of 06/12/2022 as well as methamphetamine induced cardiomyopathy. Patient is very dyspneic at rest he is tachycardic as well. His chest x-ray demonstrates pulmonary vascular congestion and a small left pleural effusion. Patient had an elevated D-dimer of 2.[address] angiogram of the chest was obtained which was negative for PE however there was mild T9 and moderate T12 compression fractures noted as well as mild ascites. Patient is admitted to PCU IV Lasix is ordered and echocardiogram is ordered-carvedilol and lisinopril and spironolactone are also continued. Currently, Pt is awake alert oriented, follows all commands, moves all extremities. Monitor #28, HR 98 SR w/PVC's and PAC's. Fluid restriction of 750 ml's/24/hr, ECHO 06/12/2022 10-15%, weak pulses, traced edema. RR 23, PO 92% RA, diminished breath sounds, equal symmetrical, mildly labored. Hypoactive bowel sounds, soft non tender, non distended, cardiac diet well tolerated. No BM. Voids freely via urinal Strict I/O maintained. Skin is gale but intact. Pt remains safe. Continue to monitor.
[2021-10-10 07:24] LABS: BASOPHILS % (AUTO) 0 % (0-1); EOSINOPHILS % (AUTO) 0 % (0-6); HEMATOCRIT 36.7 % (42.0-52.0); HEMOGLOBIN 12.1 g/dl (14.0-17.9); LYMPHOCYTES # (AUTO) 0.8 X10'3 (1.1-4.8); LYMPHOCYTES % (AUTO) 6.9 % (21-51); MEAN CORPUSCULAR HEMOGLOBIN 29.2 PG (27.0-31.0); MEAN CORPUSCULAR HGB CONC 32.9 g/dL (33.0-36.5); MEAN CORPUSCULAR VOLUME 88.8 FL (78-98); MEAN PLATELET VOLUME 7.8 FL (7.4-10.4); MONOCYTES # (AUTO) 0.5 X10'3 (0-0.9); MONOCYTES % (AUTO) 4.7 % (2-12); NEUTROPHILS % (AUTO) 88.4 % (42-75); PLATELET COUNT 219 X10'3 (140-440); RED BLOOD COUNT 4.14 X10'6 (4.70-6.10); RED CELL DISTRIBUTION WIDTH 16.4 % (11.5-14.5); WHITE BLOOD COUNT 11.3 X10'3 (4.5-11.0)
[2021-10-10 07:47] LABS: ALANINE AMINOTRANSFERASE 60 U/L (12-78); ALBUMIN 2.2 G/DL (3.4-5.0); ALBUMIN/GLOBULIN RATIO 0.5 (1.1-1.5); ALKALINE PHOSPHATASE 95 IU/L (46-116); ANION GAP 9 (8-16); ASPARTATE AMINO TRANSFERASE 34 U/L (10-37); BILIRUBIN,TOTAL 0.5 MG/DL (0.1-1.0); BLOOD UREA NITROGEN 40 MG/DL (7-18); BUN/CREATININE RATIO 31.3 (5.4-32.0); CALCIUM 7.9 MG/DL (8.5-10.1); CHLORIDE 101 MMOL/L (99-107); CREATININE 1.28 MG/DL (0.60-1.10); GLUCOSE 143 MG/DL (70-104); MAGNESIUM 2.1 MG/DL (1.5-2.4); POTASSIUM 3.4 MMOL/L (3.5-5.1); SODIUM 136 MMOL/L (135-145); TOTAL PROTEIN 6.5 G/DL (6.4-8.2); eGFR 57 ML/MIN
[2021-10-10] MEDS: aspirin 81mg, enteric-coated 1 TAB TABLET.DR PO SCH (08:29)
[2021-10-10] MEDS: spironolactone 25 MG tablet PO SCH (08:30)
[2021-10-10] MEDS: docusate sod 100mg capsule PO SCH ×2 (08:30→20:07)
[2021-10-10] MEDS: lisinopril 2.5mg tablet PO SCH (08:30)
[2021-10-10] MEDS: moxifloxacin 0.5% ophthalmic drops 3ml EACHEYE SCH ×2 (08:31→20:06)
[2021-10-10] MEDS: furosemide 10 MG/1 ML 10ml inj IV SCH ×2 (08:31→20:08)
[2021-10-10] MEDS: K and/or MAG REPLACEMENT MC SCH ×2 (08:32→20:00)
[2021-10-10] MEDS: carvedilol 6.25mg tablet PO SCH ×2 (08:32→20:07)
[2021-10-10] MEDS: ipratropium/albuterol 3ml nebule NEB SCH ×3 (15:00→23:52)
--- NOTE | 2021-10-10 18:20 | NUR ---
Problems reprioritized. Patient report given, questions answered & plan of care reviewed with Monse FUENTES.
[2021-10-10] MEDS: methylPREDNISolone sod succ/PF 40mg inj. IV SCH (20:06)
[2021-10-10] MEDS: enoxaparin 40mg/0.4ml syringe SQ SCH (20:06)
[2021-10-11 02:00] VITALS: BP 106/78
[2021-10-11] MEDS: ipratropium/albuterol 3ml nebule NEB SCH ×3 (03:00→11:24)
[2021-10-11 06:00] VITALS: BP 116/77
[2021-10-11 06:56] LABS: BASOPHILS % (AUTO) 0.1 % (0-1); EOSINOPHILS % (AUTO) 0 % (0-6); HEMATOCRIT 37.6 % (42.0-52.0); HEMOGLOBIN 12.4 g/dl (14.0-17.9); LYMPHOCYTES # (AUTO) 0.9 X10'3 (1.1-4.8); LYMPHOCYTES % (AUTO) 9.7 % (21-51); MEAN CORPUSCULAR HEMOGLOBIN 29.3 PG (27.0-31.0); MEAN CORPUSCULAR HGB CONC 33.1 g/dL (33.0-36.5); MEAN CORPUSCULAR VOLUME 88.6 FL (78-98); MEAN PLATELET VOLUME 7.8 FL (7.4-10.4); MONOCYTES # (AUTO) 0.8 X10'3 (0-0.9); MONOCYTES % (AUTO) 9.1 % (2-12); NEUTROPHILS # (AUTO) 7.6 X10'3 (1.8-7.7); NEUTROPHILS % (AUTO) 81.1 % (42-75); PLATELET COUNT 195 X10'3 (140-440); RED BLOOD COUNT 4.24 X10'6 (4.70-6.10); RED CELL DISTRIBUTION WIDTH 16.4 % (11.5-14.5); WHITE BLOOD COUNT 9.4 X10'3 (4.5-11.0)
[2021-10-11 07:06] LABS: ALANINE AMINOTRANSFERASE 59 U/L (12-78); ALBUMIN 2.2 G/DL (3.4-5.0); ALBUMIN/GLOBULIN RATIO 0.5 (1.1-1.5); ALKALINE PHOSPHATASE 90 IU/L (46-116); ANION GAP 9 (8-16); ASPARTATE AMINO TRANSFERASE 30 U/L (10-37); BILIRUBIN,TOTAL 0.6 MG/DL (0.1-1.0); BLOOD UREA NITROGEN 37 MG/DL (7-18); BUN/CREATININE RATIO 33.3 (5.4-32.0); CALCIUM 7.9 MG/DL (8.5-10.1); CHLORIDE 102 MMOL/L (99-107); CREATININE 1.11 MG/DL (0.60-1.10); GLUCOSE 126 MG/DL (70-104); POTASSIUM 3.2 MMOL/L (3.5-5.1); SODIUM 139 MMOL/L (135-145); TOTAL PROTEIN 6.7 G/DL (6.4-8.2); eGFR 67 ML/MIN
[2021-10-11] MEDS: K and/or MAG REPLACEMENT MC SCH (08:00)
[2021-10-11 08:15] VITALS: BP 121/92
[2021-10-11] MEDS: moxifloxacin 0.5% ophthalmic drops 3ml EACHEYE SCH (08:16)
[2021-10-11] MEDS: furosemide 10 MG/1 ML 10ml inj IV SCH (08:17)
[2021-10-11] MEDS: docusate sod 100mg capsule PO SCH (08:18)
[2021-10-11] MEDS: aspirin 81mg, enteric-coated 1 TAB TABLET.DR PO SCH (08:18)
[2021-10-11] MEDS: lisinopril 2.5mg tablet PO SCH (08:18)
[2021-10-11] MEDS: spironolactone 25 MG tablet PO SCH (08:18)
[2021-10-11] MEDS: carvedilol 6.25mg tablet PO SCH (08:18)
[2021-10-11] MEDS: methylPREDNISolone sod succ/PF 40mg inj. IV SCH (08:19)
[2021-10-11] MEDS ORDERED: potassium CL 10mEq/100ml bag 100 ML IV PRN (08:40)
[2021-10-11] MEDS ORDERED: potassium Cl 20 mEq SR tablet PO PRN (08:40)
[2021-10-11] MEDS: potassium Cl 20 mEq SR tablet PO PRN ×2 (08:48→13:28)
[2021-10-11 11:00] VITALS: BP 103/55
[2021-10-11] MEDS ORDERED: PRED10TA23 PO (11:06)
[2021-10-11] MEDS ORDERED: IPRA3AMP9 NEB (11:06)
[2021-10-11] MEDS ORDERED: FURO-150 PO (11:06)
[2021-10-11] MEDS ORDERED: FAMO40TA73 PO (11:07)
[2021-10-11 15:00] VITALS: BP 136/87
== END 2021-10-11 15:35 | disposition home or self-care (01) | DRG 140 ==
LOC: ER 23:50 → ED HOLD 10-08 04:34 → PCU 3S 10-08 20:40
PROVIDERS: ADMIT Family Medicine; ATTEND Internal Medicine
PROC: B32T1ZZ Computerized Tomography (CT Scan) of Left Pulmonary Artery using Low Osmolar Contrast (ICD-10-PCS; principal; 2021-10-08)
PROC: B3201ZZ Computerized Tomography (CT Scan) of Thoracic Aorta using Low Osmolar Contrast (ICD-10-PCS; 2021-10-08)
PROC: B32S1ZZ Computerized Tomography (CT Scan) of Right Pulmonary Artery using Low Osmolar Contrast (ICD-10-PCS; 2021-10-08)
DX: J44.1 Chronic obstructive pulmonary disease with (acute) exacerbation (principal); I50.23 Acute on chronic systolic (congestive) heart failure; I42.7 Cardiomyopathy due to drug and external agent; R18.8 Other ascites; M48.54XA Collapsed vertebra, not elsewhere classified, thoracic region, initial encounter for fracture; I13.0 Hypertensive heart and chronic kidney disease with heart failure and stage 1 through stage 4 chronic kidney disease, or unspecified chronic kidney disease; H10.89 Other conjunctivitis; E87.6 Hypokalemia; F15.10 Other stimulant abuse, uncomplicated; N18.9 Chronic kidney disease, unspecified; T50.1X6A Underdosing of loop [high-ceiling] diuretics, initial encounter; R74.01 Elevation of levels of liver transaminase levels; Z20.822 Contact with and (suspected) exposure to COVID-19; I25.2 Old myocardial infarction; Z87.891 Personal history of nicotine dependence; Y92.89 Other specified places as the place of occurrence of the external cause; Z79.899 Other long term (current) drug therapy; Z79.82 Long term (current) use of aspirin; Z59.00 Homelessness unspecified
CPT/HCPCS: 36415; 71045; 71275; 80053; 80305; 83735; 83880; 84484; 85025; 85379; 85610; 85730; 87081; 87635; 93005; 93306; 94640; 94760; 99285; C9803; G0378; J1100; J1650; J1940; J2920; J2930; Q9967

== ENCOUNTER 2021-11-23 18:07 | Emergency (ER) | payer MEDICAID ==
[~2021-11-23] VITALS: Ht 172.7 cm; Wt 68.1 kg
[~2021-11-23 18:07] MED LIST changes: -AMOX-580 PO; +FAMO40TA73 PO; +FURO-150 PO; -FURO20TA4 PO; +IPRA3AMP9 NEB
[2021-11-23 19:07] LABS: BASOPHILS # (AUTO) 0.1 X10'3 (0-0.2); BASOPHILS % (AUTO) 0.5 % (0-1); EOSINOPHILS # (AUTO) 0.1 X10'3 (0-0.9); EOSINOPHILS % (AUTO) 0.7 % (0-6); HEMATOCRIT 41.2 % (42.0-52.0); HEMOGLOBIN 13.4 g/dl (14.0-17.9); LYMPHOCYTES # (AUTO) 1.4 X10'3 (1.1-4.8); LYMPHOCYTES % (AUTO) 14.5 % (21-51); MEAN CORPUSCULAR HEMOGLOBIN 27.5 PG (27.0-31.0); MEAN CORPUSCULAR HGB CONC 32.6 g/dL (33.0-36.5); MEAN CORPUSCULAR VOLUME 84.5 FL (78-98); MEAN PLATELET VOLUME 8.7 FL (7.4-10.4); MONOCYTES # (AUTO) 0.6 X10'3 (0-0.9); MONOCYTES % (AUTO) 6.2 % (2-12); NEUTROPHILS # (AUTO) 7.7 X10'3 (1.8-7.7); NEUTROPHILS % (AUTO) 78.1 % (42-75); PLATELET COUNT 170 X10'3 (140-440); RED BLOOD COUNT 4.88 X10'6 (4.70-6.10); RED CELL DISTRIBUTION WIDTH 20.3 % (11.5-14.5); WHITE BLOOD COUNT 9.9 X10'3 (4.5-11.0)
[2021-11-23 19:26] LABS: ALANINE AMINOTRANSFERASE 28 U/L (12-78); ALBUMIN 1.9 G/DL (3.4-5.0); ALBUMIN/GLOBULIN RATIO 0.4 (1.1-1.5); ALKALINE PHOSPHATASE 114 IU/L (46-116); ANION GAP 8 (8-16); ASPARTATE AMINO TRANSFERASE 61 U/L (10-37); BILIRUBIN,TOTAL 1.3 MG/DL (0.1-1.0); BLOOD UREA NITROGEN 49 MG/DL (7-18); BUN/CREATININE RATIO 34.5 (5.4-32.0); CALCIUM 8.2 MG/DL (8.5-10.1); CHLORIDE 98 MMOL/L (99-107); CREATININE 1.42 MG/DL (0.60-1.10); GLUCOSE 104 MG/DL (70-104); POTASSIUM 4.7 MMOL/L (3.5-5.1); SODIUM 132 MMOL/L (135-145); TOTAL PROTEIN 6.3 G/DL (6.4-8.2); eGFR 50 ML/MIN
[2021-11-23 19:55] LABS: ANISOCYTOSIS 3+; PLATELET ESTIMATE NORMAL
[2021-11-23 19:56] LABS: BURR CELLS 1+; ELLIPTOCYTES FEW; LARGE PLATELETS FEW
[2021-11-23] MEDS ORDERED: sulfamethoxazole/trimethoprim DS (800/160mg) tablet PO ONE (20:55)
[2021-11-23] MEDS ORDERED: ondansetron 4mg rapidly disintigrating tab PO ONE (20:55)
[2021-11-23] MEDS ORDERED: furosemide 20MG tablet PO ONE (20:55)
[2021-11-23] MEDS ORDERED: ALBU8.5H17 INH (21:09)
[2021-11-23] MEDS ORDERED: ASPI-611 PO (21:09)
[2021-11-23] MEDS ORDERED: FURO-150 PO (21:09)
[2021-11-23] MEDS ORDERED: SULF1TAB49 PO (21:09)
[2021-11-23] MEDS ORDERED: LISI2.5T14 PO (21:09)
[2021-11-23] MEDS ORDERED: CARV6.2513 PO (21:09)
[2021-11-23] MEDS ORDERED: SPIR25TA5 PO (21:09)
[2021-11-23 21:29] VITALS: BP 130/79
== END 2021-11-23 21:33 | disposition home or self-care (01) ==
LOC: ER 18:08
DX: L03.115 Cellulitis of right lower limb (principal); L03.116 Cellulitis of left lower limb; I50.9 Heart failure, unspecified; F15.10 Other stimulant abuse, uncomplicated; Z59.00 Homelessness unspecified; Z79.899 Other long term (current) drug therapy
CPT/HCPCS: 36415; 80053; 84145; 85008; 85025; 87040; 99284; A4615

== ENCOUNTER 2021-12-01 01:41 | Inpatient (IN) | payer MEDICAID ==
[~2021-12-01] VITALS: Ht 172.7 cm; Wt 68.8 kg
[2021-12-01] VITALS (10 sets, daily range): BP systolic 69–177; BP diastolic 37–148
[~2021-12-01 01:41] MED LIST changes: +ALBU8.5H17 INH; +ASPI-611 PO; +CARV6.2513 PO; +LISI2.5T14 PO; +SULF1TAB49 PO
[2021-12-01] MEDS ORDERED: azithromycin/NS 500mg/250ml 250 ML IV ONE (03:00)
[2021-12-01] MEDS ORDERED: CefTRIAXone 2gm/NS 100ml IVPB 100 ML IV ONE (03:00)
[2021-12-01 03:29] LABS: BASOPHILS # (AUTO) 0.1 X10'3 (0-0.2); BASOPHILS % (AUTO) 0.4 % (0-1); EOSINOPHILS % (AUTO) 0.2 % (0-6); HEMATOCRIT 47.3 % (42.0-52.0); HEMOGLOBIN 15.2 g/dl (14.0-17.9); LYMPHOCYTES # (AUTO) 1.2 X10'3 (1.1-4.8); LYMPHOCYTES % (AUTO) 7.5 % (21-51); MEAN CORPUSCULAR HEMOGLOBIN 26.7 PG (27.0-31.0); MEAN CORPUSCULAR VOLUME 83.4 FL (78-98); MEAN PLATELET VOLUME 7.6 FL (7.4-10.4); MONOCYTES % (AUTO) 6.2 % (2-12); NEUTROPHILS # (AUTO) 13.2 X10'3 (1.8-7.7); NEUTROPHILS % (AUTO) 85.7 % (42-75); PLATELET COUNT 313 X10'3 (140-440); RED BLOOD COUNT 5.68 X10'6 (4.70-6.10); WHITE BLOOD COUNT 15.4 X10'3 (4.5-11.0)
[2021-12-01 04:04] LABS: PLATELET ESTIMATE NORMAL
[2021-12-01 04:05] LABS: ANISOCYTOSIS 3+; ELLIPTOCYTES FEW
[2021-12-01 04:12] LABS: ALANINE AMINOTRANSFERASE 30 U/L (12-78); ALBUMIN 1.9 G/DL (3.4-5.0); ALBUMIN/GLOBULIN RATIO 0.3 (1.1-1.5); ALKALINE PHOSPHATASE 123 IU/L (46-116); ANION GAP 11 (8-16); ASPARTATE AMINO TRANSFERASE 48 U/L (10-37); BILIRUBIN,TOTAL 2.7 MG/DL (0.1-1.0); BLOOD UREA NITROGEN 30 MG/DL (7-18); BUN/CREATININE RATIO 18.3 (5.4-32.0); CALCIUM 8.8 MG/DL (8.5-10.1); CHLORIDE 98 MMOL/L (99-107); CREATININE 1.64 MG/DL (0.60-1.10); GLUCOSE 105 MG/DL (70-104); MAGNESIUM 1.7 MG/DL (1.5-2.4); POTASSIUM 3.8 MMOL/L (3.5-5.1); SODIUM 134 MMOL/L (135-145); TOTAL CARBON DIOXIDE 25.3 MMOL/L (24-32); TOTAL PROTEIN 7.4 G/DL (6.4-8.2); eGFR 43 ML/MIN
[2021-12-01] MEDS ORDERED: magnesium 4gm in 100ml NS 100 ML IV PRN (04:40)
[2021-12-01] MEDS ORDERED: potassium CL 10mEq/100ml bag 100 ML IV PRN (04:40)
[2021-12-01] MEDS ORDERED: mag hydrox/Alum hydrox/simeth 30ml oral suspension PO PRN (04:40)
[2021-12-01] MEDS ORDERED: methylPREDNISolone sod succ 125mg/2ml vial IV ONE (04:40)
[2021-12-01] MEDS ORDERED: ondansetron/PF 4mg/2ml inj IV PRN (04:40)
[2021-12-01] MEDS ORDERED: POTASSIUM BICARB 20meq eff tab 20 MEQ TABLET.EFF PO PRN ×2 (04:40)
[2021-12-01] MEDS ORDERED: acetaminophen 325mg tablet PO PRN (04:40)
[2021-12-01] MEDS ORDERED: magnesium hydroxide 30ml (MOM) UD suspension PO PRN (04:40)
[2021-12-01] MEDS ORDERED: magnesium 2GM in 50ml NS 50 ML IV PRN (04:40)
[2021-12-01] MEDS ORDERED: magnesium Cl slow-release 64mg tablet PO PRN (04:40)
[2021-12-01 04:56] LABS: CLARITY,URINE CLOUDY (Clear); GLUCOSE, URINE 100 mg/dl (Neg); KETONES,URINE NEGATIVE (Neg); LEUKOCYTE ESTERASE ,URINE NEGATIVE (Neg); OCCULT BLOOD,URINE LARGE (Neg); PROTEIN,URINE 100 mg/dl (Neg)
[2021-12-01 04:57] LABS: COLOR,URINE DARK YELLOW (Yellow); UA COLLECTION TYPE NON-SPECIFIED
[2021-12-01 04:58] LABS: NITRITES, URINE NEGATIVE (Neg)
[2021-12-01 05:04] LABS: BACTERIA,URINE 1+ /HPF (Neg); RBC,URINE TNTC /HPF (0-2); SQUAMOUS EPITHELIAL CELL,UR FEW /LPF (FEW)
[2021-12-01 05:05] LABS: YEAST MODERATE /HPF (NEGATIVE)
[2021-12-01 05:27] LABS: POTASSIUM 3.5 MMOL/L (3.5-5.1)
--- NOTE | 2021-12-01 06:32 | NUR ---
UNABLE TO GIVE REPORT TO PCU DO TO BEING IN REPORT UPSTAIRS.
--- NOTE | 2021-12-01 07:00 | NUR ---
Received report from ER. Minimal information. Patient arrived to the floor at 0715, reeks horribly of urine. ER nurse reports skin was not assessed. Patient rambling on and hard to understand. Reports pain of 11 on a scale from 0-10. paged for pain meds
--- NOTE | 2021-12-01 07:34 | NUR ---
[id number] Manohar Grijalva: Patient is reporting right rib pain at an 11, but no pain meds ordered. [facility] 5441 Transaction number: [id number]
[2021-12-01] MEDS ORDERED: lisinopril 10 MG tablet PO SCH (08:00)
[2021-12-01] MEDS ORDERED: carvedilol 6.25mg tablet PO SCH (08:00)
[2021-12-01] MEDS: cefTRIAXone 1g/NS 100ml IVPB 100 ML IV SCH (08:00)
[2021-12-01] MEDS: K and/or MAG REPLACEMENT MC SCH ×2 (08:00→20:00)
[2021-12-01] MEDS ORDERED: ipratropium/albuterol 3ml nebule NEB PRN (08:05)
--- NOTE | 2021-12-01 09:41 | NUR ---
Message: [id number] Manohar Grijalva: Patient still reporting pain over 10. [facility] 5441 Transaction number: [id number]
[2021-12-01] MEDS ORDERED: FAMO40TA58 PO (10:30)
[2021-12-01] MEDS ORDERED: FURO20TA4 PO (10:30)
[2021-12-01] MEDS ORDERED: IPRA3AMP31 IH (10:30)
[2021-12-01] MEDS ORDERED: IPRA3AMP31 NEB (10:30)
[2021-12-01] MEDS ORDERED: ALBU8.5H17 INH (10:32)
[2021-12-01] MEDS: docusate sod 100mg capsule PO SCH ×2 (10:37→20:01)
[2021-12-01] MEDS: azithromycin 250mg tablet PO SCH (10:37)
[2021-12-01] MEDS: heparin, porcine 5000 units/ml vial SQ SCH ×2 (10:38→20:01)
[2021-12-01] MEDS: ipratropium/albuterol 3ml nebule NEB SCH ×4 (10:47→23:00)
[2021-12-01 13:49] LABS: URINE AMPHETAMINE SCREEN POSITIVE (Neg); URINE BARBITUATE SCREEN NEGATIVE (Neg); URINE BENZODIAZEPINES SCREEN NEGATIVE (Neg); URINE CANNABINOID SCREEN NEGATIVE (Neg); URINE COCAINE SCREEN NEGATIVE (Neg); URINE METHADONE SCREEN NEGATIVE (Neg); URINE OPIATE SCREEN NEGATIVE (Neg)
[2021-12-01] MEDS: methylPREDNISolone sod succ 125mg/2ml vial IV SCH ×2 (13:58→20:01)
[2021-12-01 13:59] LABS: URINE PHENCYCLIDINE SCREEN NEGATIVE (Neg)
[2021-12-01] MEDS ORDERED: normal saline 250ml IV soln 250 ML IV ONE (15:25)
--- NOTE | 2021-12-01 15:25 | NUR ---
Floor aid reported patient had BP of 60s/40s. she retook two other times with no improvement. I went in and took another BP and got the same reading. Tried sitting patient up - No improvement. Put patient in Trendelenburg - no improvement. Bolused 250mls NS - no improvement. Pagenghia KURTZ, who verbally ordered 500 bolus and to stop BP medications. Upon 250mls in of 500, patients BP is 70s/40s.
--- NOTE | 2021-12-01 15:40 | NUR ---
Telephone order Dr Chong - 500 bolus, Stop BP meds
--- NOTE | 2021-12-01 15:40 | NUR ---
Message: [id number] Manohar Grijalva: BP was 60s/40s when floor aid took vitals. I rechecked twice and no improvement. Trendelenburg and 250 NS bolus - BP 70/48 via manual BP, with CHF history not sure if I should bolus again? [facility] 5441 Transaction number: [id number]
[2021-12-01] MEDS ORDERED: normal saline 500ml IV soln 500 ML IV ONE (15:55)
--- NOTE | 2021-12-01 16:15 | NUR ---
Message: [id number] Manohar Grijalva: BP 74/51 after 500 bolus. [facility] 5441
[2021-12-01] MEDS ORDERED: DOBUTamine-DoBUTrex 500mg/D5W 250 ML IV SCH (16:55)
[2021-12-01] MEDS ORDERED: midodrine 5mg tablet PO ONE ×2 (17:15→17:52)
--- NOTE | 2021-12-01 17:27 | NUR ---
Received phone report. Pt. arriving to 2005 soon.
--- NOTE | 2021-12-01 17:38 | NUR ---
Pt. to room 2006. BP 177/148. RN notified Dr. Garza. Will not administer Midrodrine or Albumin as pt. is not longer hypotensive. Prophylactic foam dressing placed on pt. Skin check per 2 RNs. done. Call light in reach.
[2021-12-01] MEDS: albumin (Human) 5% 250ml 250 ML IV ONE ×2 (17:39→18:07)
--- NOTE | 2021-12-01 17:42 | NUR ---
Temp 35.6. Eb Saleh placed on pt.
[2021-12-01] MEDS ORDERED: albumin (Human) 5% 250ml 250 ML IV ONE (18:02)
--- NOTE | 2021-12-01 18:13 | NUR ---
Patient in room CICU 2006. I have received report from Cheyenne FUENTES and had the opportunity to ask questions and assume patient care.
--- NOTE | 2021-12-01 18:21 | NUR ---
Problems reprioritized. Patient report given, questions answered & plan of care reviewed with Diana FUENTES. Addendum: 12/01/21 at 1821 by Cheyenne Kelly RN Amended: Links added.
[2021-12-02] VITALS (13 sets, daily range): BP systolic 75–106; BP diastolic 53–72
[2021-12-02] MEDS: methylPREDNISolone sod succ 125mg/2ml vial IV SCH ×4 (02:25→19:17)
[2021-12-02] MEDS: ipratropium/albuterol 3ml nebule NEB SCH ×2 (03:00→07:00)
[2021-12-02 03:19] LABS: BASOPHILS % (AUTO) 0.3 % (0-1); EOSINOPHILS % (AUTO) 0 % (0-6); HEMATOCRIT 39.8 % (42.0-52.0); HEMOGLOBIN 12.9 g/dl (14.0-17.9); LYMPHOCYTES # (AUTO) 1.2 X10'3 (1.1-4.8); LYMPHOCYTES % (AUTO) 8.9 % (21-51); MEAN CORPUSCULAR HEMOGLOBIN 27.1 PG (27.0-31.0); MEAN CORPUSCULAR HGB CONC 32.4 g/dL (33.0-36.5); MEAN CORPUSCULAR VOLUME 83.7 FL (78-98); MONOCYTES # (AUTO) 0.6 X10'3 (0-0.9); MONOCYTES % (AUTO) 4.5 % (2-12); NEUTROPHILS # (AUTO) 12.1 X10'3 (1.8-7.7); NEUTROPHILS % (AUTO) 86.3 % (42-75); PLATELET COUNT 253 X10'3 (140-440); RED BLOOD COUNT 4.76 X10'6 (4.70-6.10); RED CELL DISTRIBUTION WIDTH 20.7 % (11.5-14.5)
[2021-12-02 03:36] LABS: ALANINE AMINOTRANSFERASE 13 U/L (12-78); ALBUMIN 1.2 G/DL (3.4-5.0); ALBUMIN/GLOBULIN RATIO 0.3 (1.1-1.5); ALKALINE PHOSPHATASE 66 IU/L (46-116); ANION GAP 10 (8-16); ASPARTATE AMINO TRANSFERASE 23 U/L (10-37); BILIRUBIN,TOTAL 0.9 MG/DL (0.1-1.0); BLOOD UREA NITROGEN 37 MG/DL (7-18); BUN/CREATININE RATIO 21.5 (5.4-32.0); CALCIUM 7.5 MG/DL (8.5-10.1); CHLORIDE 103 MMOL/L (99-107); CREATININE 1.72 MG/DL (0.60-1.10); GLUCOSE 150 MG/DL (70-104); MAGNESIUM 1.6 MG/DL (1.5-2.4); PHOSPHORUS 5.3 MG/DL (2.3-4.5); POTASSIUM 3.9 MMOL/L (3.5-5.1); SODIUM 136 MMOL/L (135-145); TOTAL CARBON DIOXIDE 22.6 MMOL/L (24-32); TOTAL PROTEIN 5.3 G/DL (6.4-8.2); eGFR 40 ML/MIN
[2021-12-02 04:11] LABS: ANISOCYTOSIS 3+; PLATELET ESTIMATE NORMAL
[2021-12-02 04:12] LABS: POIKILOCYTOSIS 2+; TEAR DROP CELLS 1+
[2021-12-02 04:13] LABS: LARGE PLATELETS FEW; SCHISTOCYTES FEW
--- NOTE | 2021-12-02 06:14 | NUR ---
Problems reprioritized. Patient report given to dario FUENTES, questions answered & plan of care reviewed with .
[2021-12-02] MEDS: K and/or MAG REPLACEMENT MC SCH ×2 (08:00→19:18)
[2021-12-02] MEDS: azithromycin 250mg tablet PO SCH (08:00)
[2021-12-02] MEDS: docusate sod 100mg capsule PO SCH ×2 (08:57→19:18)
[2021-12-02] MEDS: cefTRIAXone 1g/NS 100ml IVPB 100 ML IV SCH (08:57)
[2021-12-02] MEDS: heparin, porcine 5000 units/ml vial SQ SCH ×2 (08:58→19:18)
--- NOTE | 2021-12-02 12:30 | NUR ---
received report elisa bishop rn in icu
--- NOTE | 2021-12-02 13:36 | NUR ---
Initial: Pt admit DX sepsis, shock, PNA, SANTHOSH, and heart failure EF 15% w/ meth-induced cardiomyopathy per EMR. Pt PO 50% first regular breakfast this AM. Receiving routine colace for bowel care. Will monitor for further PO trends and nutrition intervention needs. Rec: 1. continue regular diet; encourage PO 2. monitor for PO trends and ONS needs 3. routine bowel care 4. weekly wts Addendum: 12/02/21 at [address] Amended: Links added.
--- NOTE | 2021-12-02 18:29 | NUR ---
gave report to sravanthi arnold
[2021-12-03] MEDS: methylPREDNISolone sod succ 125mg/2ml vial IV SCH ×4 (01:51→19:44)
[2021-12-03 06:00] VITALS: BP 111/83
--- NOTE | 2021-12-03 06:18 | NUR ---
Problems reprioritized. Patient report given, questions answered & plan of care reviewed with Jenn FUENTES.
[2021-12-03 06:33] LABS: BASOPHILS % (AUTO) 0 % (0-1); EOSINOPHILS % (AUTO) 0 % (0-6); HEMATOCRIT 35.2 % (42.0-52.0); HEMOGLOBIN 11.3 g/dl (14.0-17.9); LYMPHOCYTES # (AUTO) 0.9 X10'3 (1.1-4.8); LYMPHOCYTES % (AUTO) 5.1 % (21-51); MEAN CORPUSCULAR VOLUME 84.3 FL (78-98); MONOCYTES # (AUTO) 0.6 X10'3 (0-0.9); MONOCYTES % (AUTO) 3.6 % (2-12); NEUTROPHILS # (AUTO) 16.3 X10'3 (1.8-7.7); NEUTROPHILS % (AUTO) 91.3 % (42-75); PLATELET COUNT 286 X10'3 (140-440); RED BLOOD COUNT 4.17 X10'6 (4.70-6.10); RED CELL DISTRIBUTION WIDTH 20.5 % (11.5-14.5); WHITE BLOOD COUNT 17.9 X10'3 (4.5-11.0)
--- NOTE | 2021-12-03 06:55 | NUR ---
Patient in room ORTHO 4016. I have received report from Kindra FUENTES and had the opportunity to ask questions and assume patient care.
[2021-12-03] MEDS: cefTRIAXone 1g/NS 100ml IVPB 100 ML IV SCH (07:08)
[2021-12-03] MEDS: azithromycin 250mg tablet PO SCH (07:09)
[2021-12-03] MEDS: docusate sod 100mg capsule PO SCH ×2 (07:09→19:41)
[2021-12-03] MEDS: heparin, porcine 5000 units/ml vial SQ SCH ×2 (07:10→19:42)
[2021-12-03 07:14] LABS: ALANINE AMINOTRANSFERASE 20 U/L (12-78); ALBUMIN 1.4 G/DL (3.4-5.0); ALBUMIN/GLOBULIN RATIO 0.3 (1.1-1.5); ALKALINE PHOSPHATASE 93 IU/L (46-116); ANION GAP 15 (8-16); ASPARTATE AMINO TRANSFERASE 27 U/L (10-37); BILIRUBIN,TOTAL 0.6 MG/DL (0.1-1.0); BLOOD UREA NITROGEN 56 MG/DL (7-18); BUN/CREATININE RATIO 26.4 (5.4-32.0); CALCIUM 7.5 MG/DL (8.5-10.1); CHLORIDE 99 MMOL/L (99-107); CREATININE 2.12 MG/DL (0.60-1.10); GLUCOSE 172 MG/DL (70-104); MAGNESIUM 1.6 MG/DL (1.5-2.4); PHOSPHORUS 3.9 MG/DL (2.3-4.5); POTASSIUM 4.3 MMOL/L (3.5-5.1); SODIUM 135 MMOL/L (135-145); TOTAL CARBON DIOXIDE 20.7 MMOL/L (24-32); TOTAL PROTEIN 5.5 G/DL (6.4-8.2); eGFR 32 ML/MIN
[2021-12-03] MEDS: K and/or MAG REPLACEMENT MC SCH ×2 (08:00→19:41)
[2021-12-03 10:00] VITALS: BP 119/84
[2021-12-03] MEDS ORDERED: acetaminophen 325mg tablet PO PRN (10:20)
--- NOTE | 2021-12-03 11:01 | NUR ---
Met with patient in regards to substance use and to see if patient wanted resources for treatment options. Patient would like to go to an inpatient rehab. I gave patient [facility] number and his insurance info to call and get process started. I also gave patient my card so he can call me with any questions.
[2021-12-03 12:26] LABS: HBSAG SCREEN Negative (Negative); HEP A AB, IGM Negative (Negative); HEPATITIS C ANTIBODY 2.5 s/co ratio (0.0-0.9)
[2021-12-03] MEDS ORDERED: carvedilol 6.25mg tablet PO ONE (13:15)
[2021-12-03 14:00] VITALS: BP 129/88
[2021-12-03] MEDS: aspirin 81mg, enteric-coated 1 TAB TABLET.DR PO SCH (14:00)
[2021-12-03 14:05] LABS: HIV ANTIBODY 1&2 RAPID NON-REACTIVE (Neg)
--- NOTE | 2021-12-03 17:01 | NUR ---
Message: Madelin [id number] Re: Rudi [id number] patient stated RT treatment helped can I change from PRN to Scheduled ?
[2021-12-03 18:00] VITALS: BP 136/99
--- NOTE | 2021-12-03 18:26 | NUR ---
Problems reprioritized. Patient report given, questions answered & plan of care reviewed with Kindra FUENTES.
[2021-12-03] MEDS: carvedilol 6.25mg tablet PO SCH (19:41)
[2021-12-03 22:00] VITALS: BP 135/94
[2021-12-04] MEDS: methylPREDNISolone sod succ 125mg/2ml vial IV SCH ×2 (02:25→08:52)
[2021-12-04 06:00] VITALS: BP 159/104
--- NOTE | 2021-12-04 06:33 | NUR ---
Patient in room ORTHO 4016. I have received report from DARLING FUENTES and had the opportunity to ask questions and assume patient care.
--- NOTE | 2021-12-04 06:39 | NUR ---
Problems reprioritized. Patient report given, questions answered & plan of care reviewed with Jolynn FUENTES and Samanta FUENTES.
--- NOTE | 2021-12-04 06:52 | NUR ---
Patient in room ORTHO 4016. I have received report from DARLING FUENTES and had the opportunity to ask questions and assume patient care.
[2021-12-04 07:01] LABS: BASOPHILS % (AUTO) 0.1 % (0-1); EOSINOPHILS % (AUTO) 0 % (0-6); HEMATOCRIT 38.5 % (42.0-52.0); HEMOGLOBIN 12.2 g/dl (14.0-17.9); LYMPHOCYTES # (AUTO) 0.8 X10'3 (1.1-4.8); LYMPHOCYTES % (AUTO) 5.3 % (21-51); MEAN CORPUSCULAR HEMOGLOBIN 26.9 PG (27.0-31.0); MEAN CORPUSCULAR HGB CONC 31.8 g/dL (33.0-36.5); MEAN CORPUSCULAR VOLUME 84.7 FL (78-98); MEAN PLATELET VOLUME 8.2 FL (7.4-10.4); MONOCYTES # (AUTO) 0.5 X10'3 (0-0.9); NEUTROPHILS % (AUTO) 91.6 % (42-75); PLATELET COUNT 300 X10'3 (140-440); RED BLOOD COUNT 4.55 X10'6 (4.70-6.10); RED CELL DISTRIBUTION WIDTH 21.2 % (11.5-14.5); WHITE BLOOD COUNT 15.3 X10'3 (4.5-11.0)
[2021-12-04 07:22] LABS: ALANINE AMINOTRANSFERASE 23 U/L (12-78); ALBUMIN 1.7 G/DL (3.4-5.0); ALBUMIN/GLOBULIN RATIO 0.4 (1.1-1.5); ALKALINE PHOSPHATASE 102 IU/L (46-116); ANION GAP 9 (8-16); ASPARTATE AMINO TRANSFERASE 33 U/L (10-37); BILIRUBIN,TOTAL 0.7 MG/DL (0.1-1.0); BLOOD UREA NITROGEN 56 MG/DL (7-18); BUN/CREATININE RATIO 28.6 (5.4-32.0); CHLORIDE 100 MMOL/L (99-107); CREATININE 1.96 MG/DL (0.60-1.10); GLUCOSE 149 MG/DL (70-104); MAGNESIUM 1.7 MG/DL (1.5-2.4); PHOSPHORUS 3.5 MG/DL (2.3-4.5); POTASSIUM 4.7 MMOL/L (3.5-5.1); SODIUM 130 MMOL/L (135-145); TOTAL CARBON DIOXIDE 20.6 MMOL/L (24-32); TOTAL PROTEIN 6.5 G/DL (6.4-8.2); eGFR 35 ML/MIN
[2021-12-04] MEDS: docusate sod 100mg capsule PO SCH (08:00)
[2021-12-04] MEDS ORDERED: famotidine 20mg tablet PO SCH (08:00)
[2021-12-04] MEDS: K and/or MAG REPLACEMENT MC SCH (08:00)
[2021-12-04] MEDS: aspirin 81mg, enteric-coated 1 TAB TABLET.DR PO SCH (08:51)
[2021-12-04] MEDS: azithromycin 250mg tablet PO SCH (08:52)
[2021-12-04] MEDS: heparin, porcine 5000 units/ml vial SQ SCH (08:52)
[2021-12-04] MEDS: carvedilol 6.25mg tablet PO SCH (08:53)
[2021-12-04] MEDS: cefTRIAXone 1g/NS 100ml IVPB 100 ML IV SCH (09:19)
--- NOTE | 2021-12-04 09:52 | NUR ---
educated patient he is on strict I&O's and to use urinal for urine output. Pt has had 3 liquid bms this so far this shift
[2021-12-04 10:00] VITALS: BP 131/89
[2021-12-04] MEDS ORDERED: PRED10TA23 PO (10:53)
[2021-12-04] MEDS ORDERED: CEFD300C3 PO (10:53)
--- NOTE | 2021-12-04 11:00 | NUR ---
patient refusing to leave until he speaks with MD. MD notified will proceed with discharge orders per MD
--- NOTE | 2021-12-04 13:30 | NUR ---
pT DISCHARGED IN STABLE CONDITION. BELONGINGS SENT WITH PATIENT. IV REMOVED TIP INTACT. PT DISCHARGE EDUCATION PROVIDED. PT WHEELED DOWN TO FRONT ENTRANCE VIA MEDICAL STAFF. PRESCRIPTIONS CALLED TO PHARMACY. PT DISCHARGED VIA TAXI.
--- NOTE | 2021-12-04 14:18 | NUR ---
i agree with assessments and care by Samanta FUENTES
== END 2021-12-04 13:25 | disposition home or self-care (01) | DRG 720 ==
LOC: ER 01:42 → ED HOLD 04:40 → EDBEDREQ 06:23 → PCU 3S 07:20 → CICU 2S 17:32 → ORTHO 4S 12-02 13:27
PROVIDERS: ADMIT Internal Medicine; ATTEND Family Medicine
DX: A41.9 Sepsis, unspecified organism (principal); J96.20 Acute and chronic respiratory failure, unspecified whether with hypoxia or hypercapnia; R57.9 Shock, unspecified; I50.23 Acute on chronic systolic (congestive) heart failure; I42.7 Cardiomyopathy due to drug and external agent; J15.9 Unspecified bacterial pneumonia; E87.1 Hypo-osmolality and hyponatremia; J44.0 Chronic obstructive pulmonary disease with (acute) lower respiratory infection; R18.8 Other ascites; N17.9 Acute kidney failure, unspecified; Z20.822 Contact with and (suspected) exposure to COVID-19; R79.89 Other specified abnormal findings of blood chemistry; W18.39XA Other fall on same level, initial encounter; J40 Bronchitis, not specified as acute or chronic; F10.10 Alcohol abuse, uncomplicated; F15.10 Other stimulant abuse, uncomplicated; F17.200 Nicotine dependence, unspecified, uncomplicated; J44.1 Chronic obstructive pulmonary disease with (acute) exacerbation; Z59.00 Homelessness unspecified; Z91.19 Patient's noncompliance with other medical treatment and regimen; Y93.89 Activity, other specified; Y92.89 Other specified places as the place of occurrence of the external cause; Y99.8 Other external cause status; Z79.899 Other long term (current) drug therapy; Z79.82 Long term (current) use of aspirin; Z71.51 Drug abuse counseling and surveillance of drug abuser
CPT/HCPCS: 36415; 71110; 76700; 80053; 80305; 81001; 83605; 83735; 83880; 84100; 84132; 84145; 84443; 85008; 85025; 86703; 86709; 86803; 87040; 87081; 87088; 87340; 87635; 94640; 94664; 94667; 94760; 97116; 97162; 99285; A4615; A4620; C9803; G0378; J0456; J0696; J1644; J2930; J7030; J7040; J7050; P9045